=== PATIENT | male | born 1955 | race Caucasian/White ===

== ENCOUNTER 2019-11-23 11:12 | Emergency (ER) | payer OTHER, SELFPAY ==
[2019-11-23 11:14] VITALS: BP 151/84; PULSE 87; RESP 16; TEMP 36.6; O2SAT 98; BMI 21.7
--- NOTE | 2019-11-23 11:32 | XR_ITS ---
WS: [id number] Left knee, 3 views, 11/23/2019 Clinical Data: fall Comparison: Left leg, 07/31/2016. Findings: The left knee arthroplasty is seen. The components are in good position. There are no fractures or di slocations. There is minimal calcification in the wall of the popliteal artery. XR/XR knee LT 3V* [id number] Impression: No change in left knee arthroplasty.
--- NOTE | 2019-11-23 11:33 | XR_ITS ---
WS: [id number] Left hip, AP and frog-leg Clinical Data: pain Comparison: None. Findings: No fractures or dislocations are seen. The hip joint is intact. The soft tissues are not remarkable. The adjacent pelvis is normal. There is osteoarthritic change of the acetabular lip. XR/XR hip LT 2-3V wo/w pel* [id number] Impression: 1. Osteoarthritis of lateral left acetabulum. 2. Negative for fracture, dislocation or erosion.
--- NOTE | 2019-11-23 11:33 | W.ED.FALL ---
HPI - Fall General: Chief Complaint: Fall Stated Complaint: FALL LEFT LEG PAIN Time Seen by Provider: 11/23/19 11:28 History of Present Illness: HPI Narrative: Patient complains about left hip pain left knee pain after a fall while at work today. Patient states he was climbing down a 6 foot ladder that was leaned up against the wall and the bottom slipped out and he fell on his backside and now has pain to the left hip and left knee is able to ambulate but it does hurt he said complaint: fall Onset (ago): minute(s) Fall from: other (Down the ladder) Fall witnessed: no Place fall occurred: work Loss of consciousness: None Prolonged down time: no Symptoms prior to fall: none Context: tripped/slipped Location of injury - extremities: Left: knee (And left hip) Severity: moderate Severity scale (1-10): 5 Quality: aching Associated symptoms-after fall: Denies abdominal pain, chest pain or headache(s) Review of Systems Const: Denies: fever, chills or body aches Eyes: Denies: change in vision or blurry vision ENMT: Denies: throat pain or nasal congestion Card: Denies: chest pain or shortness of breath on exertion Resp: Denies: shortness of breath, productive cough or non-productive cough GI: Denies: abdominal pain, nausea or vomiting : Denies: difficulty urinating Musc: Reports: extremity pain (Left knee and left hip); Denies: extremity swelling Skin/Breast: Denies: rash Neuro: Denies: headache Psych: Denies: anxiety or depression Ramirez/Lymph: Denies: easy bruising PFSH ED PFSH: Social History Smoking and tobacco status: former smoker Physical Exam Const: COMMON NORMALS: no apparent distress, average body habitus and oriented x3 HENMT: COMMON NORMALS: normocephalic HEAD & SCALP: normal to inspection and normocephalic FACE & SINUS: normal facial exam Eye: COMMON NORMALS: conjunctivae normal GENERAL EYE: normal appearance of both eyes CONJUNCTIVA: Yes conjunctivae normal Neck/C-Spine: COMMON NORMALS: no JVD Chest: COMMONS NORMALS: inspection of chest normal Resp: COMMON NORMALS: normal respiratory effort and clear to auscultation bilaterally AUSCULTATION: clear to auscultation bilaterally Cardio: COMMON NORMALS: no JVD, regular rate and regular rhythm RATE: regular rate RHYTHM: regular rhythm GI: COMMON NORMALS: normal to inspection, nondistended, normoactive bowel sounds Extremity: COMMON NORMALS: normal to inspection and full ROM LEFT LOWER EXTREMITY: Yes hip joint (Tender to the left hip area) and Yes knee joint (No pain with palpation but there is pain with range of motion no swelling or abrasion noted) Neuro: COMMON NORMALS: oriented x3 Course Vital Signs: Vital signs: Vital Signs Temperature 98 F 11/23/19 11:14 Pulse Rate 87 11/23/19 11:14 Respiratory Rate 16 11/23/19 11:14 Blood Pressure 151/84 11/23/19 11:14 Pulse Oximetry 98 11/23/19 11:14 Coding Level of Care Code ED Aerospace Quality Engineer for Kolton Ulloa
[2019-11-23 12:55] VITALS: BP 118/62; PULSE 72; RESP 16; O2SAT 98
== END 2019-11-23 12:57 | disposition home or self-care (01) ==
LOC: ER 12:29
PROVIDERS: Emergency Provider Nurse Practitioner Family; Family Provider Family Medicine; PCP Family Medicine
DX: M25.552 Pain in left hip (principal); M25.562 Pain in left knee; Z87.891 Personal history of nicotine dependence
CPT/HCPCS: 12345; 73502; 73562; 99281; 99283

== ENCOUNTER 2019-11-24 14:53 | Emergency (ER) | payer OTHER, SELFPAY ==
[2019-11-24 14:54] VITALS: BP 137/81; PULSE 94; RESP 16; TEMP 36.9; O2SAT 98; BMI 22.4
--- NOTE | 2019-11-24 15:03 | XR_ITS ---
WS: [id number] Right wrist, 3 views, 11/24/2019 Clinical Data: fall/pain Comparison: None. Findings: No fractures or dislocations are seen. The carpal bones are intact. There is no soft tissue swelling. The distal radius and ulna are not remarkable. There is a small soft tissue calcification on the lateral view adjacent to the triquetrum which is pr obably from a chronic injury. XR/XR wrist RT min 3V* [id number] Impression: Negative right wrist.
--- NOTE | 2019-11-24 15:22 | W.ED.EXTPRO ---
HPI - Extremity Problem General: Chief complaint: Extremity Injury, Upper Stated complaint: right wrist pain Time Seen by Provider: 11/24/19 15:11 History of Present Illness: HPI Narrative: Patient complains about right wrist pain from a fall down a ladder yesterday. I had assessed him yesterday he had no wrist pain at that time. Patient said his pain developed overnight. Says it hurts to move it now denies swelling. MD Complaint: joint paint Onset (ago): day(s) Pain Consistency: constant Location: right Severity scale (1-10): 5 Quality: aching Radiation: none Relieving factors: immobilization Exacerbating factors: range of motion Associated symptoms: Reports no associated symptoms; Deny chest pain, fever(s) or rash Context: other (Recent fall) Review of Systems Const: Denies: fever, chills or body aches Eyes: Denies: change in vision or blurry vision ENMT: Denies: throat pain or nasal congestion Card: Denies: chest pain or shortness of breath on exertion Resp: Denies: shortness of breath, productive cough or non-productive cough GI: Denies: abdominal pain, nausea or vomiting : Denies: difficulty urinating Musc: Reports: joint pain (Right wrist) and other (Left leg still sore does have slight bruising patient says is able to ambulate just fine); Denies: extremity pain Skin/Breast: Denies: rash Neuro: Denies: headache Psych: Denies: anxiety or depression Ramirez/Lymph: Denies: easy bruising PFSH ED PFSH: Social History Smoking and tobacco status: former smoker Physical Exam Const: COMMON NORMALS: no apparent distress GENERAL APPEARANCE: cooperative Extremity: RIGHT UPPER EXTREMITY: Yes wrist (Tender with range of motion no swelling noted no bruising. Has good neurovascular status distal) Course Vital Signs: Vital signs: Vital Signs Temperature 98.4 F 11/24/19 14:54 Pulse Rate 94 11/24/19 14:54 Respiratory Rate 16 11/24/19 14:54 Blood Pressure 137/81 11/24/19 14:54 Pulse Oximetry 98 11/24/19 14:54 Coding Level of Care Code ED Technical Writing Lead/Mgr for Kolton Ulloa
[2019-11-24 15:37] VITALS: BP 125/83; PULSE 95; RESP 17; O2SAT 96
== END 2019-11-24 15:37 | disposition home or self-care (01) ==
LOC: ER 15:38
PROVIDERS: Emergency Provider Nurse Practitioner Family; Family Provider Family Medicine; PCP Family Medicine
DX: M25.531 Pain in right wrist (principal); M79.605 Pain in left leg; Z87.891 Personal history of nicotine dependence
CPT/HCPCS: 12345; 73110; 99281; 99282

== ENCOUNTER → 2020-01-12 09:54 | Outpatient (BNVA) | payer OTHER, SELFPAY | PROVIDERS: Family Provider Family Medicine; PCP Family Medicine; Referring Provider Nurse Practitioner; Visit Provider Orthopaedic Surgery | DX: M25.562 Pain in left knee (principal) | CPT/HCPCS: 73560; 73565 ==

== ENCOUNTER 2020-04-19 16:22 | Emergency (ER) | payer SELFPAY ==
--- NOTE | 2020-04-19 16:25 | XRR_ITS ---
PROCEDURE INFORMATION: Exam: XR Right Hand Exam date and time: 04/19/2020 5:01 PM Age: 64 years old Clinical indication: Pain and injury or trauma; Injury history: Using driving post to break rocks; Initial encounter; Blunt trauma (contusions or hematomas; Injury details: Unable to straighten or bend finger, right hand pain; Prior surgery; Additional info: Pain/trauma TECHNIQUE: Imaging protocol: XR Right hand. Views: 3 or more views. COMPARISON: CR XR wrist RT min 3V* [id number] 11/24/2019 3:12 PM FINDINGS: Bones/joints: Degenerative arthritis of the wrist with radiocarpal joint space narrowing and sclerosis. Degenerative arthritis of multiple IP joints and metacarpophalangeal joints. Prominent hypertrophic formation is most noted at the distal 3rd metacarpal bone. No acute fracture. Soft tissues: Similar small well corticated soft tissue calcification adjacent to the triquetrum. 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
[2020-04-19 16:43] VITALS: BP 124/79; PULSE 113; RESP 16; TEMP 36.9; O2SAT 97; BMI 23.0
--- NOTE | 2020-04-19 17:35 | W.ED.EXTPRO ---
HPI - Extremity Problem General: Chief complaint: Extremity Injury, Upper Stated complaint: RIGHT HAND PAIN/INJURY WC Time Seen by Provider: 04/19/20 17:35 Source: patient Mode of arrival: ambulatory Limitations: no limitations History of Present Illness: HPI Narrative: Patient presents with injury to the right hand. Patient was driving posts and struck his hand in an awkward manner causing pain to the third MCP joint. Patient has difficulty extending and flexing hand due to pain. Patient denies any other concerns or injury. MD Complaint: extremity pain Review of Systems General: Reports: 10 or more systems reviewed and unremarkable except in HPI and below Musc: Reports: extremity pain [facility] ED PFSH: Medical History (Updated 04/19/20 @ 17:40 by ALEJANDRO Hayward) Flexion contracture of left knee Surgical History Total knee replacement status Social History Smoking and tobacco status: former smoker Alcohol intake: never Physical Exam Const: COMMON NORMALS: no acute distress and patient oriented x3 GENERAL APPEARANCE: cooperative HENMT: COMMON NORMALS: normocephalic and Normal external nose present HEAD & SCALP: normal to inspection and normocephalic NOSE: Normal external nose present MOUTH: Normal oral and palatal mucosa present Eye: GENERAL EYE: appearance normal, both eyes and all related structures Neck/C-Spine: COMMON NORMALS: full ROM Chest: COMMONS NORMALS: normal inspection of the chest Resp: COMMON NORMALS: normal respiratory effort EFFORT & INSPECTION: Yes able to speak in complete sentences Cardio: COMMON NORMALS: regular rate and regular rhythm RATE: regular rate RHYTHM: regular rhythm GI: COMMON NORMALS: non-tender Back/Pelvis: COMMON NORMALS: thoracic and lumbar spine normal to inspection Extremity: NARRATIVE EXTREMITY EXAM: Tenderness is noted to the third MCP joint of the right hand. No obvious deformity. Normal passive range of motion is noted. Distal cap refill is intact. Neuro sensation is intact. Neuro: COMMON NORMALS: patient oriented x3 and moves all extremities Psych: COMMON NORMALS: mental status grossly normal and cooperative Skin: COMMON NORMALS: no rashes or lesions noted GENERAL SKIN EXAM: no rashes or lesions noted Course Vital Signs: Vital signs: Vital Signs Temperature 98.5 F 04/19/20 16:43 Pulse Rate 113 H 04/19/20 16:43 Respiratory Rate 16 04/19/20 16:43 Blood Pressure 124/79 04/19/20 16:43 Pulse Oximetry 97 04/19/20 16:43 MDM - Extremity (Nontraumatic) MDM Narrative: Medical decision making narrative: Patient comes in for concern of injury to the right hand. On exam patient has tenderness to the third MCP joint of the right hand. No obvious deformity is noted. Tenderness is noted to palpation. Differential diagnosis includes but not limited to fracture, sprain, contusion. X-ray noted significant arthritis to the hand but no sign of an acute fracture. Reviewed exam with patient recommended treatment for sprain and for aggravation of arthritis. Patient reports understanding. Discharge Plan Discharge Patient Disposition: Home Clinical Impression: Hand sprain Qualifiers: Encounter type: initial encounter Laterality: right Qualified Code(s): S63.91XA - Sprain of unspecified part of right wrist and hand, initial encounter Osteoarthritis of hand, right Qualifiers: Osteoarthritis type: unspecified Qualified Code(s): M19.041 - Primary osteoarthritis, right hand Condition: Stable Prescriptions: New diclofenac sodium 75 mg tablet,delayed release (DR/EC) 75 mg PO BID Qty: 14 RF: 0 No Action methocarbamol 750 mg tablet 750 mg PO Q8H RF: 0 tramadol 50 mg tablet 50 mg PO Q6H PRNRF: 0 trazodone 100 mg tablet 100 mg PO DAILY RF: 0 Discharge Orders: Discharge Order (Routine); Ordered 04/19/20 Ordered By: Daniel Spring Referrals: Daniel Elder [Primary Care Provider] - Discharge Diet: Usual diet Discharge Activity: Increase activity as tolerated Patient Instructions: Hand Sprain (ED) Activity Restrictions/Additional Instructions: You have significant arthritis in your hand and wrist area. No sign of fracture was noted in the hand. Most likely you have a sprain in the hand and then also aggravated your arthritis. You were given a dose of steroid in the emergency department. You need to take the diclofenac twice a day for next 7 days to help with pain and inflammation. You may continue using your routine medications as you have. Follow-up with primary care for persistent symptoms or return to the emergency department for new concerns. Coding Level of Care Code ED Pet Walker for Kolton Fwjeremy Exam Comprehensive
[2020-04-19] MEDS: dexamethasone 10 mg/mL INJ IM (17:48)
== END 2020-04-19 17:53 | disposition home or self-care (01) ==
PROVIDERS: Emergency Provider Nurse Practitioner Family; PCP Family Medicine
DX: S63.91XA Sprain of unspecified part of right wrist and hand, initial encounter (principal); M19.041 Primary osteoarthritis, right hand; Z87.891 Personal history of nicotine dependence; W22.8XXA Striking against or struck by other objects, initial encounter
CPT/HCPCS: 12345; 73130; 96372; 99281; 99283; J1100

== ENCOUNTER 2020-05-08 12:35 | Outpatient (CLI) | payer OTHER, SELFPAY ==
--- NOTE | 2020-05-08 12:47 | MR_ITS ---
WS: [id number] MRI HEAD WITH CONTRAST WITH ATTENTION TO THE INTERNAL AUDITORY CANALS TECHNIQUE: Sagittal T1, T2 axial, T2 axial flair, axial susceptibility weighted imaging, axial diffus ion weighted images, and coronal T2 images were obtained. Pre and post T1 axial and post T1 coronal i mages. ADC and FSPGR images. Post gadolinium images with attention to the internal auditory canals. A xial fiesta imaging. CLINICAL INFORMATION: DIZZINESS AND GIDDINESS COMPARISON: MRI and May 08, 2016 FINDINGS: No evidence of restricted diffusion to suggest acute ischemia. Ventricular system and basal cisterns are patent. Minimal small vessel changes. Moderate parenchymal volume loss. Normal posterior fossa. N ormal vascular flow voids at the skull base. No extra-axial fluid collections. No evidence of mass or mass effect. Paranasal sinuses are well aerated. Mastoid air cells are well aerated. No hemosiderin on the susceptibility weighted images. Normal optic chiasm and pituitary infundibulum. Temporal lobes and hippocampal formations are normal in appearance. No abnormal intracranial enhance ment. No evidence of enhancing IAC or CP angle mass. Proximal 7th and 8th cranial nerves appear amilcar l. Normal dural venous sinuses. MR/MR iac's wo/w con* [id number] IMPRESSION: 1. No evidence of enhancing IAC or CP angle mass. 2. No restricted diffusion to suggest acute ischemia. 3. Paranasal sinuses and mastoid air cells well aerated. Mild mucosal thickeni ng left maxillary sinus. 4. Minimal small vessel changes moderate parenchymal volume loss. 5. Normal optic chiasm and pituitary infundibulum.
== END 2020-05-08 12:36 | disposition home or self-care (01) ==
LOC: RADSHAW 12:36
PROVIDERS: PCP Family Medicine; Visit Provider Specialist
DX: R42 Dizziness and giddiness (principal)
CPT/HCPCS: 70553; A9579

== ENCOUNTER → 2020-05-25 08:34 | Outpatient (BNVA) | payer OTHER, SELFPAY | PROVIDERS: PCP Family Medicine; Referring Provider Family Medicine; Visit Provider Specialist | DX: M79.643 Pain in unspecified hand (principal); M19.041 Primary osteoarthritis, right hand; M19.031 Primary osteoarthritis, right wrist | CPT/HCPCS: 73130 ==

== ENCOUNTER → 2020-08-31 08:50 | Outpatient (BNVA) | payer OTHER, SELFPAY | PROVIDERS: PCP Family Medicine; Visit Provider Specialist | DX: M25.512 Pain in left shoulder (principal) | CPT/HCPCS: 73030 ==

== ENCOUNTER 2020-09-18 06:45 | Outpatient (CLI) | payer OTHER, SELFPAY ==
--- NOTE | 2020-09-18 07:15 | MR_ITS ---
WS: [id number] MRI LEFT SHOULDER HISTORY: Tendinitis left rotator cuff, prior surgery LEFT shoulder. COMPARISON: 03/22/2019 TECHNIQUE: Multiplanar sequences of the shoulder joint are submitted. There are 4 anchors now noted within the humeral head from rotator cuff repair. Increased signal in t he distal infraspinatus and supraspinatus tendons consistent with tendinopathy. There is significant enlargement and increased T2 signal within the tendons. There is a more focal linear fluid like signa l extending obliquely through the posterior supraspinatus tendon. This fluid extends between the inte rdigitation's of the supraspinatus and infraspinatus tendons. Increased fluid in the subacromial and subdeltoid bursa. There is no muscle edema or atrophy. No retraction of the tendons. Biceps tendon re paula unchanged in its position. Subscapularis tendon is negative. Again noted is the posterior inferior labral tear. Mild degenerative changes over the humeral head an d the form of loss of cartilage in surface irregularity. Resection of the distal clavicle. Micrometallic fragments from the prior surgery noted in the soft ti ssues. MR/MR shoulder LT wo con* [id number] IMPRESSION: 1. Since the prior MRI four anchors have now been placed within the humeral he ad from rotator cuff repair. 2. Significant enlargement and edema involving the distal 2 to 3 cm of the inf raspinatus and supraspinatus tendons. 3. Fluidlike signal extending obliquely through the distal supraspinatus tendo n near the overlapping interdigitation with the infraspinatus tendon. Suspiciou s for a new rotator cuff tear. 4. No muscle edema or retraction. 5. Unchanged posterior inferior labral tear. 6. Resection distal clavicle.
== END 2020-09-18 06:46 | disposition home or self-care (01) ==
LOC: RADSHAW 06:48
PROVIDERS: PCP Family Medicine; Visit Provider Specialist
DX: M75.82 Other shoulder lesions, left shoulder (principal); R60.0 Localized edema
CPT/HCPCS: 73221

== ENCOUNTER → 2021-01-24 08:06 | Outpatient (BNVA) | payer OTHER, SELFPAY | PROVIDERS: PCP Family Medicine; Visit Provider Specialist | DX: G43.711 Chronic migraine without aura, intractable, with status migrainosus (principal); H81.09 Meniere's disease, unspecified ear; I73.9 Peripheral vascular disease, unspecified; Z87.891 Personal history of nicotine dependence | CPT/HCPCS: 99204 ==

== ENCOUNTER → 2021-03-05 08:00 | Outpatient (BNVA) | payer OTHER, SELFPAY | PROVIDERS: PCP Family Medicine; Visit Provider Specialist | DX: H81.09 Meniere's disease, unspecified ear (principal); G43.809 Other migraine, not intractable, without status migrainosus; I73.9 Peripheral vascular disease, unspecified | CPT/HCPCS: 99213 ==

== ENCOUNTER → 2021-05-07 09:39 | Outpatient (BNVA) | payer OTHER, SELFPAY | PROVIDERS: PCP Family Medicine; Referring Provider Family Medicine; Visit Provider Specialist | DX: M25.561 Pain in right knee (principal); M25.562 Pain in left knee | CPT/HCPCS: 73560; 73565 ==

== ENCOUNTER 2021-06-27 08:49 | Outpatient (CLI) | payer OTHER, SELFPAY ==
--- NOTE | 2021-06-27 08:55 | NM_ITS ---
WS: [id number] THREE-PHASE BONE SCAN HISTORY: Z96.652 - Presence of left artificial knee joint, LEFT knee pain. COMPARISON: 05/07/2021 Patient is is injected with 25.6 mCi Tc99m HDP intravenously. Immediate angiographic phase imaging is performed over the area of concern. Static blood pool imaging also performed. Two-hour whole-body sc intigrams performed in anterior and posterior projections. Additional large field of view imaging sub mitted as necessary. Angiographic phase and blood pool phases are normal centered over the knees. Photopenic defect LEFT k nee from the prior arthroplasty. There is some very mild increased uptake at both knees bilaterally. Increased uptake around the LEFT knee is associated with the periphery of the knee prosthesis. More f ocal increased uptake involving the patellofemoral articulation of the RIGHT knee. Mild bilateral AC joint, AC joint and glenohumeral joint arthritis. Normal soft tissue uptake and uriel al uptake. NM/NM bone 3 phase [id number] IMPRESSION: 1. Mild changes of osteoarthritis at the LEFT knee surrounding the prosthesis. No evidence for infection or significant loosening. 2. Mild RIGHT knee osteoarthritis, greatest involving the patellofemoral joint .
== END 2021-06-27 08:50 | disposition home or self-care (01) ==
PROVIDERS: PCP Family Medicine; Visit Provider Specialist
DX: M24.562 Contracture, left knee (principal); Z96.652 Presence of left artificial knee joint; M17.0 Bilateral primary osteoarthritis of knee
CPT/HCPCS: 78315; A9561

== ENCOUNTER → 2022-05-16 07:53 | Outpatient (BNVA) | payer OTHER, SELFPAY | PROVIDERS: PCP Family Medicine; Visit Provider Urology | DX: R97.20 Elevated prostate specific antigen [PSA] (principal) | CPT/HCPCS: 84153 ==

== ENCOUNTER 2022-05-23 09:14 | Outpatient (CLI) | payer OTHER, SELFPAY ==
--- NOTE | 2022-05-23 09:34 | MR_ITS ---
WS: [id number] MRI LUMBAR SPINE NONCONTRAST HISTORY: LUMBAR RADICULOPATHY COMPARISON: 08/24/2019 TECHNIQUE: Sagittal and axial multisequence imaging is submitted. Cervical and thoracic spondylitic changes. Central canal stenosis at C4-5 and C5-6 similar to the princess or study. Disc spaces are narrowed throughout the thoracic spine. Increase in the lumbar lordosis. Disc spaces are diffusely narrowed. 2 mm retrolisthesis of L1, L2 an d L3. Narrowing signal is mildly heterogeneous but there is no fracture. Disc spaces and vertebral body heights are well-preserved. Conus terminates normally at L1-2 disc level. L1-L2: Mild diffuse annular disc bulging and ligamentum flavum hypertrophy. Small amount of fluid in the facet joints. Mild subarticular recess narrowing. L2-L3: Mild diffuse annular disc bulging with ligamentum flavum and facet arthritis. No definite disc protrusions. L3-L4: Moderate annular disc bulging. Moderate ligamentum flavum and facet arthritis. There is encroa chment narrowing of the subarticular recesses. Mild central, subarticular recess and foraminal stenos is. Previously described RIGHT foraminal disc protrusion is not as prominent. L4-L5: Mild diffuse annular disc bulge with ligamentum flavum and facet arthritis. Encroachment and n arrowing of the thecal sac disc is asymmetrically bulging to the RIGHT foramen. Mild central, bilater al subarticular recess and RIGHT foraminal stenosis. Similar pass to the prior study. L5-S1: Moderate diffuse annular disc bulging with a central disc protrusion. Ligamentum flavum and fa cet arthritis encroaching into the central canal. Impingement again noted upon the bilateral S1 nerve roots in the subarticular recesses, RIGHT slightly greater than LEFT. Similar to the prior study. Mi ld central and foraminal stenosis. Paravertebral soft tissues are normal. MR/MR lumbar spine wo con* [id number] IMPRESSION: 1. Only minimal progression of degenerative disc disease, facet arthritis and ligamentum flavum hypertrophy since 08/24/2019. 2. Central disc protrusion at L5-S1 impinges upon the S1 nerve roots bilateral ly. There is mild central, bilateral subarticular recess and foraminal stenosis . 3. Mild central, bilateral subarticular recess and RIGHT foraminal stenosis at L4-5. 4. Mild central, subarticular recess and foraminal stenosis at L3-4. 5. Mild subarticular recess narrowing at L1-2.
== END 2022-05-23 09:15 | disposition home or self-care (01) ==
LOC: RAD 09:15
PROVIDERS: PCP Family Medicine; Visit Provider Family Medicine
DX: M54.16 Radiculopathy, lumbar region (principal); M48.061 Spinal stenosis, lumbar region without neurogenic claudication; M51.27 Other intervertebral disc displacement, lumbosacral region
CPT/HCPCS: 72148

== ENCOUNTER → 2022-05-24 08:29 | Outpatient (BNVA) | payer OTHER, SELFPAY | PROVIDERS: PCP Family Medicine; Visit Provider Urology | DX: R97.20 Elevated prostate specific antigen [PSA] (principal); Z80.42 Family history of malignant neoplasm of prostate | CPT/HCPCS: 99203 ==

== ENCOUNTER 2022-05-30 12:55 | Outpatient (CLI) | payer OTHER, SELFPAY ==
--- NOTE | 2022-05-30 13:04 | USCV_ITS ---
Brian Rothman Age: 66 Gender: M : 1955 Exam Date: 05/30/2022 13:17 Ordering Phys: La Farris MD Technologist: ANALI [place] [facility] [place]: DIZZ[place] Risk Factors: Previous Vascular Surgery: Right Brachial BP: / Left Brachial BP: / Right Left Velocity (cm/s) Spectral Plaque Velocity (cm/s) Spectral Plaque Syst/Diast Broadening Syst/Diast Broadening 93.00/ 15.40 Prox CCA 110.20/ 31.60 95.90/ 19.80 Mid CCA 118.00/ 39.70 98.10/ 25.40 Distal CCA 93.70 / 32.00 53.60/ 12.40 Prox ICA 62.10 / 21.80 74.60/ 25.60 Mid ICA 83.10 / 26.40 75.50/ 26.60 Distal ICA 73.00 / 28.00 88.20 ECA 76.10 0.77 ICA/CCA 0.70 Antegrade Vertebral Antegrade 34.20/ 8.50 cm/s 48.20/ 13.90 cm/s Tri Subclavian Tri 153.8 148.6 0 0 CONCLUSIONS Right ICA stenosis <50%. Left ICA stenosis <50%. Normal antegrade Doppler flow noted in the right vertebral artery. Normal antegrade Doppler flow noted in the left vertebral artery. Adonis Sanabria MD (Electronically Signed) Final Date: 31 May 2022 17:18 S
== END 2022-05-30 12:56 | disposition home or self-care (01) ==
LOC: RAD 12:55
PROVIDERS: PCP Family Medicine; Visit Provider Family Medicine
DX: R42 Dizziness and giddiness (principal); I65.23 Occlusion and stenosis of bilateral carotid arteries
CPT/HCPCS: 93880

== ENCOUNTER → 2022-11-12 08:37 | Outpatient (BNVA) | payer OTHER, SELFPAY | PROVIDERS: PCP Family Medicine; Visit Provider Urology | DX: R97.20 Elevated prostate specific antigen [PSA] (principal) | CPT/HCPCS: 84153 ==

== ENCOUNTER → 2022-11-19 13:42 | Outpatient (BNVA) | payer OTHER, SELFPAY | PROVIDERS: PCP Emergency Medicine Emergency Medical Services; Visit Provider Urology | DX: Z80.42 Family history of malignant neoplasm of prostate (principal); Z86.010 Personal history of colon polyps; R97.20 Elevated prostate specific antigen [PSA] | CPT/HCPCS: 51798; 81003; 99213 ==

== ENCOUNTER 2023-04-17 07:21 | Outpatient (CLI) | payer OTHER, SELFPAY ==
--- NOTE | 2023-04-17 07:39 | MR_ITS ---
WS: [id number] MRI LUMBAR SPINE NONCONTRAST TECHNIQUE: Sagittal T1, T2 and STIR imaging. Axial T1 and T2 imaging. CLINICAL INFORMATION: LUMBAR RADICULOPATHY/SPONDYLOSIS/BULGING LUMBAR DISC COMPARISON: MRI 06/06 FINDINGS: Mild lumbar curve. No acute compression. Alignment is unchanged compared to previous. 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 L1-L2: Mild disc bulging with slight effacement of ventral thecal sac. Narrowing of the subarticular recess bilaterally. Mild facet arthropathy. Foramen are patent. L2-L3: Slight retrolisthesis L2 on L3. Narrowing of the subarticular recess bilaterally. Mild facet a rthropathy. Mild LEFT foraminal narrowing. RIGHT foramen is patent. L3-L4: Mild annular bulging with slight effacement of ventral thecal sac. Mild facet arthropathy. Mil d bilateral foraminal narrowing. L4-L5: Mild annular bulging with slight effacement of ventral thecal sac. Impingement traversing L5 n erve roots bilaterally. Moderate facet arthropathy. Mild RIGHT and no significant LEFT foraminal narr owing. L5-S1: Mild disc bulging with shallow central protrusion. Mild central canal stenosis. Impingement tr aversing S1 nerve roots bilaterally. Moderate facet arthropathy. Foramen are patent. Visualized pelvic bony structures: Normal. Paravertebral soft tissues: Normal. MR/MR lumbar spine wo con* [id number] IMPRESSION: Overall no significant changes since 06/06 1. Mild lumbar curve. No acute compression. No high-grade central canal stenos is. 2. Mild central canal stenosis L3-L4 L4-L5 and L5-S1 stable compared to previo us. 3. Disc bulging L5-S1 with impingement traversing LEFT greater than RIGHT S1 n erve roots. 4. Impingement on the subarticular recess L4-L5 with impingement on traversing L5 nerve roots. 5. Small LEFT foraminal protrusion L2-L3 with mild LEFT foraminal narrowing. 6. Mild RIGHT L3-L4 and RIGHT L4-L5 foraminal narrowing. 7. Moderate facet arthropathy L3-L5.
== END 2023-04-17 07:22 | disposition home or self-care (01) ==
PROVIDERS: PCP Emergency Medicine Emergency Medical Services; Visit Provider Surgery
DX: M54.16 Radiculopathy, lumbar region (principal); M47.896 Other spondylosis, lumbar region; M51.36 Other intervertebral disc degeneration, lumbar region; M48.061 Spinal stenosis, lumbar region without neurogenic claudication; M51.26 Other intervertebral disc displacement, lumbar region
CPT/HCPCS: 72148

== ENCOUNTER → 2023-06-17 07:37 | Outpatient (BNVA) | payer OTHER, SELFPAY | PROVIDERS: PCP Emergency Medicine Emergency Medical Services; Referring Provider Emergency Medicine Emergency Medical Services; Visit Provider Surgery | DX: D64.9 Anemia, unspecified (principal) | CPT/HCPCS: 99203; 99214 ==

== ENCOUNTER 2023-07-11 08:29 | Day surgery (SDC) | payer OTHER, SELFPAY ==
[2023-07-11 08:48] VITALS: BMI 19.5
[2023-07-11 08:55] VITALS: BP 104/82; PULSE 107; RESP 18; TEMP 36.1; O2SAT 98
[2023-07-11] MEDS: sodium chloride 0.9% 1,000 ML 30 ML IV (09:01)
--- NOTE | 2023-07-11 09:37 | P.HPUD_ITS ---
Surgery/Procedure H&P Update DATE OF PROCEDURE: July 11, 2023 DATE H&P PERFORMED: 06/17/23 H&P UPDATE INFORMATION: I have reviewed H&P completed within last 30 days, I have examined patient prior to procedure, No changes to prior documentation and H&P is in [facility] [place] on date indicated PLANNED PROCEDURE: Operation Date: 07/11/23 10:05 Proposed Procedures p [id number] colon G0121 screen colon A risk G64.9(Not Applicable) - Armani Antonio MD s EGD [id number](Not Applicable) - Armani Antonio MD
--- NOTE | 2023-07-11 09:37 | W.PM.OPSUD ---
Surgery/Procedure H&P Update DATE OF PROCEDURE: July 11, 2023 DATE H&P PERFORMED: 06/17/23 H&P UPDATE INFORMATION: I have reviewed H&P completed within last 30 days, I have examined patient prior to procedure, No changes to prior documentation and H&P is in [facility] [place] on date indicated PLANNED PROCEDURE: Operation Date: 07/11/23 10:05 Proposed Procedures p [id number] colon G0121 screen colon A risk G64.9(Not Applicable) - Armani Antonio MD s EGD 13821(Not Applicable) - Armani Antonio MD
--- NOTE | 2023-07-11 10:35 | ANES.PREANE2 ---
Pre-Anesthetic Assessment Height/Weight: Height 1.83 m Weight 65.317 kg Temp Pulse Resp BP Pulse Ox O2 Del Method 97 F L 107 H 18 104/82 98 Room Air 07/11/23 08:55 07/11/23 08:55 07/11/23 08:55 07/11/23 08:55 07/11/23 08:55 07/11/23 08:55 Preop Diagnosis: Iron deficiency anemia Operation Date: 07/11/23 10:05 Proposed Procedures p 47239 colon G0121 screen colon A risk G64.9(Not Applicable) - Armani Antonio MD s EGD 64379(Not Applicable) - Armani Antonio MD Familial anesthetic complications: None Was Beta Pasha taken within 24 hours: N/A Was Clonidine taken within 24 hours: N/A Last intake: Intake Last Liquid Date 07/10/23 Last Liquid Time 22:00 Last Solid Date 07/09/23 Last Solid Time 18:00 Social No alcohol and No tobacco Exam alert, oriented x 3 and clear to auscultation bilaterally Airway Submandibular: within normal limits Mallampati: Class II Dentition: full (missing multiple) History/ROS No significant history except as noted Pulmonary None reported CV/HEM Anemia None reported Hepatic None reported GI None reported Metabolic None reported Musc/skel None reported Neuropsych None reported Anesthetic Plan ASA status: 2 Anesthesia: Anesthesia Evaluation and MAC Risk of > 500 ml blood loss (7ml/kg in children): No Medications/Allergies Home Medications Medication Instructions Recorded Confirmed Last Taken Type pantoprazole 40 mg tablet,delayed 40 mg PO DAILY #42 tabs 08/25/20 07/09/23 07/10/23 Rx release (Protonix) naproxen 500 mg tablet 500 mg PO BID 09/27/20 07/09/23 07/09/23 History diazepam 2 mg tablet 2 mg PO TID PRN Anxiety 05/24/22 07/09/23 07/09/23 History trazodone 100 mg tablet 150 mg PO BEDTIME 05/24/22 07/09/23 07/09/23 History ferrous sulfate 325 mg (65 mg 65 mg PO DAILY 07/09/23 07/09/23 07/09/23 History iron) capsule,extended release acetaminophen 650 mg 650 mg PO Q12H PRN pain 07/11/23 07/11/23 07/10/23 History tablet,extended release (Tylenol 8 Hour) Allergies Allergy/AdvReac Type Severity Reaction Status Date / Time No Known Allergies Allergy Verified 06/17/23 08:40 Current Medications Generic Name Dose Route Start Last Admin Trade Name Jeremiah PRN Reason Stop Dose Admin Sodium Chloride 1,000 mls @ 30 mls/hr 07/11/23 08:45 07/11/23 09:01 Sodium Chloride 0.9% IV 30 mls/hr .Q24H SUNDAY Administration PFSH Anesthesia Medical History Elevated prostate specific antigen (PSA) Mildly elevated PSA. Complicated by family history of prostate cancer in father. Normal KATHERIN at first evaluation. PSA ranging from 5-4.6. Recommended initially a conservative approach. Flexion contracture of left knee Surgical History History of colonoscopy with polypectomy History of knee replacement History of shoulder surgery History of tonsillectomy Family History Father , AT AGE 85 Heart attack Mother Arthritis Heart disease Denies family history of Anesthesia complication Bleeding disorder Social History Smoking and tobacco/nicotine status: former use of tobacco/nicotine Alcohol intake: never Substance/Drug Use: never Marital status: Current occupational status: retired Data Anesthesia Cardiac Studies: No Data to Display
[2023-07-11 11:59] VITALS: BP 91/52; PULSE 91; RESP 14; TEMP 37.7; O2SAT 95
--- NOTE | 2023-07-11 12:04 | FL_ITS ---
WS: [id number] Exam: FL barium enema [id number] Date/Time of Exam: 07/11/2023 1:12 PM Reason For Exam: incomplete colonoscopy Preliminary abdominal survey was unremarkable. Full column barium enema was performed. The colon filled to the cecum. A large apple core filling def ect is noted in the LEFT transverse colon that is suspicious for colon carcinoma. There is approximat gloria 80% luminal narrowing at the site of the mass. The remaining aspects of the colon are unremarkabl e. The haustral pattern is well-maintained. The colon is not displaced. Barium could not be refluxed into the terminal ileum. IMPRESSION: 1. Prominent apple core filling defect in the LEFT transverse colon almost surely representing colon carcinoma. 2. The remainder of the colon is unremarkable. These findings were discussed by phone with the attending surgeon Dr. Napier at 2:37 p.m. 3.
[2023-07-11 12:09] VITALS: BP 91/58; PULSE 84; RESP 18; O2SAT 100
[2023-07-11 12:19] VITALS: BP 107/52; PULSE 80; RESP 18; O2SAT 100
[2023-07-11 12:35] VITALS: BP 96/59; PULSE 78; RESP 18; O2SAT 99
--- NOTE | 2023-07-11 12:55 | PC.NURSE ---
Pt taken to radiology via wheelchair for barium enema. Pt able to go home following procedure. Discharge instructions given to patient . No questions voiced.
== END 2023-07-11 14:00 | disposition home or self-care (01) ==
PROVIDERS: PCP Emergency Medicine Emergency Medical Services; Visit Provider Surgery
PROC: 0DJD8ZZ Inspection of Lower Intestinal Tract, Via Natural or Artificial Opening Endoscopic (ICD-10-PCS; CPT 45378; principal; 2023-07-11 10:05)
PROC: 0DJ08ZZ Inspection of Upper Intestinal Tract, Via Natural or Artificial Opening Endoscopic (ICD-10-PCS; CPT 43235; 2023-07-11 10:05)
DX: Z12.11 Encounter for screening for malignant neoplasm of colon (principal); K29.70 Gastritis, unspecified, without bleeding; D64.9 Anemia, unspecified; Z87.891 Personal history of nicotine dependence
CPT/HCPCS: 43239; 74270; 88305; J2704; J7030

== ENCOUNTER 2023-07-14 12:39 | Outpatient (CLI) | payer OTHER, SELFPAY ==
--- NOTE | 2023-07-14 13:00 | CT_ITS ---
WS: [id number] CT CHEST, ABDOMEN AND PELVIS WITH CONTRAST HISTORY: colon mass TECHNIQUE: Contiguous 5 mm axial imaging performed through the chest, abdomen and pelvis with IV cont rast, oral contrast has been provided. Coronal and sagittal reformats chest. Coronal and sagittal ref ormats through the abdomen and pelvis. All CT scans at [facility] use at least one of these d ose optimization techniques: automated exposure control; mA and/or kV adjustment per patient size (in cludes targeted exams where dose is matched to clinical indication); or iterative reconstruction. CONTRAST: Omnipaque 350; 100 mL IV. DLP: 576.50 mGy.cm COMPARISON: Barium enema 07/11/[address]: Mild pulmonary hyperexpansion. Subpleural calcified granuloma RIGHT upper lobe. No pulmonar y mass or nodule. No metastatic lesions are identified within the lungs. Normal size aorta and pulmon celso artery. Heart size is normal. No pericardial or pleural effusions. No mediastinal or hilar adenop athy. Mild increase in the thoracic kyphosis. No osteolytic or osteoblastic lesions are identified. No rib lesions are identified by CT. Abdomen CT: Numerous low-attenuation masses scattered throughout the liver consistent with metastatic disease. The largest mass measures approximately 6.5 x 5.4 cm. There are additional similar sized ma sses scattered throughout both RIGHT and LEFT lobes. No bile duct dilatation. Main portal vein is nor santa enhancing. Gallbladder is normal. Normal spleen and adrenal glands. No renal obstruction or mas s. Mild atherosclerosis aorta. Negative pancreas. Large soft tissue mass in the transverse colon with significant narrowing of the lumen. This mass was recently described on barium enema. Colonic mass extends over a length of at least 8 cm. Asymmetric wall thickening measures up to 1.6 cm. At this time there is no obstruction of the colon but the lume n is becoming significantly narrowed. There are small pericolonic lymph nodes. There is also fat stra nding suggesting tumor extension beyond the colon. Stomach is minimally distended. No small bowel obstruction. There is an area of soft tissue thickenin g involving the small bowel in the LEFT upper abdomen. This may be direct extension from the colon ne oplasm into the small bowel. There are also changes suspicious for omental carcinomatosis. No additio nal colon lesions. No ascites. Small shotty retroperitoneal lymph nodes. The largest is 1.2 cm at the level of the renal vein. Pelvic CT: No free fluid in the pelvis. No enlarged inguinal lymph nodes. Nondistended urinary bladde r. IMPRESSION: 1. Distal transverse colon neoplasm extending over a length of 8 cm. There is significant narrowing o f the lumen a large circumferential large soft tissue mass. Colonic neoplasm may be invading into an adjacent small bowel loop. There are small adjacent lymph nodes and probable tumor extension/peritone al carcinomatosis in the LEFT upper quadrant. 2. Numerous liver metastases. 3. No suspicious metastatic lesions are identified within the lungs or adrenal glands. 4. Small shotty retroperitoneal lymph nodes.
[2023-07-14] MEDS: iohexol 350 mg/mL 500 mL Btl (per mL) PO (13:20)
[2023-07-14 14:06] LABS: Blood Urea Nitrogen 19 mg/dL (8-23)
[2023-07-14] MEDS: iohexol 350 mg/mL 500 mL Btl (per mL) IV (14:19)
== END 2023-07-14 12:40 | disposition home or self-care (01) ==
LOC: RAD 12:39
PROVIDERS: PCP Emergency Medicine Emergency Medical Services; Visit Provider Surgery
DX: C18.4 Malignant neoplasm of transverse colon (principal); C78.7 Secondary malignant neoplasm of liver and intrahepatic bile duct
CPT/HCPCS: 71260; 74177; 82565; 84520; Q9967

== ENCOUNTER → 2023-07-15 11:19 | Outpatient (BNVA) | payer OTHER, SELFPAY | PROVIDERS: PCP Emergency Medicine Emergency Medical Services; Visit Provider Surgery | DX: Z09 Encounter for follow-up examination after completed treatment for conditions other than malignant neoplasm (principal); C19 Malignant neoplasm of rectosigmoid junction | CPT/HCPCS: 99215 ==

== ENCOUNTER → 2023-07-28 13:10 | Outpatient (BNVA) | payer OTHER, SELFPAY | PROVIDERS: PCP Emergency Medicine Emergency Medical Services; Visit Provider Surgery | DX: C19 Malignant neoplasm of rectosigmoid junction (principal) | CPT/HCPCS: 99214 ==

== ENCOUNTER 2023-08-01 10:26 | Day surgery (SDC) | payer OTHER, SELFPAY ==
[2023-08-01] VITALS (7 sets, daily range): BP systolic 97–112; BP diastolic 57–76; PULSE 91–101; RESP 14–18; TEMP 36.1–36.5; O2SAT 95–99; BMI 18.5
--- NOTE | 2023-08-01 06:42 | W.PM.OPSFHP ---
Same Day Surgery H&P Indication for Procedure/HPI DATE OF PROCEDURE: August 01, 2023 CHIEF COMPLAINT/INDICATIONFOR SURGICAL PROCEDURE: need for port a cath PREOP DIAGNOSIS: metastatic colon cancer PLANNED PROCEDURE: Operation Date: 08/01/23 12:00 Proposed Procedures p [id number] port placement C19(Not Applicable) - Armani Antonio MD Medications/Allergies* Home Medications Medication Instructions Recorded Confirmed Type naproxen 500 mg tablet 500 mg PO BID 09/27/20 07/31/23 History diazepam 2 mg tablet 2 mg PO TID PRN Anxiety 05/24/22 07/31/23 History trazodone 100 mg tablet 150 mg PO BEDTIME 05/24/22 07/31/23 History ferrous sulfate 325 mg (65 mg 65 mg PO DAILY 07/09/23 07/28/23 History iron) capsule,extended release acetaminophen 650 mg 650 mg PO Q12H PRN pain 07/11/23 07/31/23 History tablet,extended release (Tylenol 8 Hour) Allergies/Adverse Reactions Allergy/AdvReac Type Severity Reaction Status Date / Time No Known Allergies Allergy Verified 07/28/23 13:11 Pertinent History/Comorbid Conditions* Medical History (Updated 07/15/23 @ 12:27 by Armani Antonio MD) Elevated prostate specific antigen (PSA) Mildly elevated PSA. Complicated by family history of prostate cancer in father. Normal KATHERIN at first evaluation. PSA ranging from 5-4.6. Recommended initially a conservative approach. Flexion contracture of left knee Surgical History (Updated 05/08/21 @ 11:43 by Sri Borden MD) History of colonoscopy with polypectomy History of knee replacement History of shoulder surgery History of tonsillectomy Family History (Updated 05/24/22 @ 08:49 by Sammi Mancera LPN) Father, AT AGE 85 Arthritis Mother Heart disease Mother Heart attack Father Denies family history of Anesthesia complication Bleeding disorder Social History Smoking and tobacco/nicotine status: former use of tobacco/nicotine Alcohol intake: never Substance/Drug Use: never Marital status: Current occupational status: retired Pertinent Exam Findings alert, oriented x 3, clear to auscultation bilaterally and regular rate & rhythm Recommendations Surgery/Procedure today Coding Level of Care Code Acute Code for Chg Fwd Diagnoses
[2023-08-01] MEDS: sodium chloride 0.9% 1,000 ML 30 ML IV (11:22)
[2023-08-01] MEDS: fentaNYL 50 mcg/mL INJ 2mL IVP (11:22)
[2023-08-01] MEDS: ondansetron 2 mg/ML SDV 2 mL 4 MG IVP ×2 (11:22→13:58)
--- NOTE | 2023-08-01 12:34 | ANES.PREANE2 ---
Pre-Anesthetic Assessment Height/Weight: Height 1.83 m Weight 62 kg O2 Del Method Room Air 08/01/23 10:50 Preop Diagnosis: metastasic colon cancer Operation Date: 08/01/23 12:00 Proposed Procedures p [id number] port placement C19(Not Applicable) - Armani Antonio MD Familial anesthetic complications: None Was Beta Pasha taken within 24 hours: N/A Was Clonidine taken within 24 hours: N/A Last intake: Intake Last Liquid Date 07/31/23 Last Liquid Time 18:00 Last Solid Date 07/31/23 Last Solid Time 18:00 Social No alcohol and No tobacco Exam alert, oriented x 3, clear to auscultation bilaterally and regular rate & rhythm Airway Mallampati: Class II Dentition: other (missing) GI Gastroesophageal Reflux Disease stage IV colon cancer Anesthetic Plan ASA status: 4 Anesthesia: MAC Risk of > 500 ml blood loss (7ml/kg in children): No Medications/Allergies Home Medications Medication Instructions Recorded Confirmed Last Taken Type pantoprazole 40 mg tablet,delayed 40 mg PO DAILY #42 tabs 08/25/20 07/31/23 07/31/23 Rx release (Protonix) naproxen 500 mg tablet 500 mg PO BID 09/27/20 07/31/23 07/30/23 History diazepam 2 mg tablet 2 mg PO TID PRN Anxiety 05/24/22 07/31/23 07/31/23 History trazodone 100 mg tablet 150 mg PO BEDTIME 05/24/22 07/31/23 07/30/23 History ferrous sulfate 325 mg (65 mg 65 mg PO DAILY 07/09/23 07/28/23 07/09/23 History iron) capsule,extended release acetaminophen 650 mg 650 mg PO Q12H PRN pain 07/11/23 07/31/23 07/30/23 History tablet,extended release (Tylenol 8 Hour) sucralfate 100 mg/mL oral 1 g (10 mL) PO BID 8 weeks #1,120 07/11/23 07/31/23 08/01/23 Rx suspension mL hydrocodone 7.5 mg-acetaminophen 1 tab PO Q6H PRN pain 30 days #120 07/28/23 07/31/23 07/31/23 Rx 325 mg tablet tabs Allergies Allergy/AdvReac Type Severity Reaction Status Date / Time No Known Allergies Allergy Verified 11/13/23 13:11 Current Medications Generic Name Dose Route Start Last Admin Trade Name Freq PRN Reason Stop Dose Admin Fentanyl 50 mcg 08/01/23 10:36 08/01/23 11:22 Fentanyl 50 Mcg/Ml Inj 2ml IVP 50 mcg Q10M PRN Administration Preop Pain Sodium Chloride 1,000 mls @ 30 mls/hr 08/01/23 10:45 08/01/23 11:22 Sodium Chloride 0.9% IV 08/02/23 10:44 30 mls/hr .Q24H SUNDAY Administration Ondansetron HCl 4 mg 08/01/23 10:36 08/01/23 11:22 Ondansetron 2 Mg/Ml Sdv 2 Ml IVP 4 mg Q5M PRN Administration NAUSEA AND VOMITING PFSH Anesthesia Medical History Elevated prostate specific antigen (PSA) Mildly elevated PSA. Complicated by family history of prostate cancer in father. Normal KATHERIN at first evaluation. PSA ranging from 5-4.6. Recommended initially a conservative approach. Flexion contracture of left knee Surgical History History of colonoscopy with polypectomy History of knee replacement History of shoulder surgery History of tonsillectomy Family History Father , AT AGE 85 Heart attack Mother Arthritis Heart disease Denies family history of Anesthesia complication Bleeding disorder Social History Smoking and tobacco/nicotine status: former use of tobacco/nicotine Alcohol intake: never Substance/Drug Use: never Marital status: Current occupational status: retired Data Anesthesia Cardiac Studies: No Data to Display
[2023-08-01] MEDS: ceFAZolin 2,000 MG in sodium chloride 0.9% (plus) 50 ML 100 MG IV (12:41)
[2023-08-01] MEDS: lidocaine-epi 2% 20 mL INJ INJECTION (13:04)
[2023-08-01] MEDS: heparin, porcine 1,000 unit/mL INJ 10 mL 6000 UNIT XX (13:18)
[2023-08-01] MEDS: lidocaine-epi 2% 20 mL INJ (13:19)
--- NOTE | 2023-08-01 13:25 | XR_ITS ---
WS: [id number] Exam: XR chest 1V portable [id number] Date/Time of Exam: 08/01/2023 1:38 PM Reason For Exam: Post port placement Comparison 03/22/2016. The lungs are clear and fully expanded. Normal cardiomediastinal structures and bony elements. A righ t-sided port ends at the cavoatrial junction. IMPRESSION: 1. Right-sided port ending at the cavoatrial junction. No acute cardiopulmonary process.
--- NOTE | 2023-08-01 13:36 | PM.OP ---
Operative Report Date of procedure: August 01, 2023 Pre-op diagnosis: Metastatic colon cancer Post-op diagnosis: Same Procedure done: Insertion of Port-A-Cath Implants: Bard Port-A-Cath Surgeon: Armani Antonio MD Slot Shift Manager: RUBIA OR Staff Estimated blood loss: 10 Complications: none Findings: Normal vascular anatomy, right IJ noted to be collapsing during expiration likely representing poor intravascular volume. Brief History: 67-year-old male with history of metastatic colon cancer who requires a port for chemotherapy initiation. After discussion of the risk and benefits as documented in my preop note we have decided to proceed with placement of a right IJ Port-A-Cath. Procedure: Patient was brought into the OR. He was placed in the supine position. Moderate anesthesia sedation was given. The neck and upper chest was prepped and draped in the usual sterile fashion. Timeout was conducted. Ultrasound was used to localize the right IJ vein at the level of the neck. Despite Trendelenburg position it was noted to be collapsing, likely representing poor intravascular volume. under US guidance the right IJ vein was canulated, 2 attempts were required due to vascular anatomy. the needle was seen entering the lumen and a wire was advanced. the wire position was confirmed with US and fluoroscopy. I then proceeded to make a 2.5cm incision on the right upper chest, the incision was deepened to the level of the pectoralis fascia. a subcutaneous pocket was created to accomodate the port. I then used a hemostat to create a tunnel from the chest wound to the level of the neck. I made a 5mm incision a the level of the wire insertion site in the neck to accommodate the tunneler and sheath. the port was placed in the chest pocket and the catheter tunneled from the chest wound to the neck wound using tunneler. I then measured the catheter length using fluoroscopy and transected the catheter. A peel off sheath was then advanced over the wire under fluoroscopy guidance. the introducer and wire were removed and the catheter was advanced through the sheath. the peel off sheath was then removed leaving the catheter in place. the posiition was verified with fluoroscopy, I then verified blood retun and hep locked the port. the port was fixed to the pectoralis fascia with #3-0 Vicryl. hemostasis was verified. the wound was closed in layers using #3-0 vicryl for the subcutaneous tissue and #4-0 Monocryl for the skin. the skin of the neck was closed with #4-0 monocryl. dermabond was then applied over the wounds. at the end of the procedure all counts were correct. the patient tolerated well the procedure and was transfered to the PACU in stable condition. Chest XR done in the PACU shows no evidence of pneumothorax.
--- NOTE | 2023-08-01 13:43 | SC_ITS ---
WS: [id number] C-ARM RADIOGRAPHS CHEST; 2 IMAGES HISTORY: OR PICS COMPARISON: 08/01/2023 Intraoperative imaging during RIGHT subclavian Port-A-Cath placement. Tip appears appropriately posit ioned. IMPRESSION: Intraoperative imaging during Mediport placement.
[2023-08-01] MEDS: fentaNYL 50 mcg/mL INJ 2mL 100 MCG IVP (13:50)
[2023-08-01] MEDS: HYDROcodone-acetaminophen 5-325 mg Tablet 2 TAB PO (14:43)
--- NOTE | 2023-08-01 15:40 | ANE.PACU2 ---
Inpatient post-anesthesia follow up: Airway intact: Yes Vital signs: Temperature 97.7 F Pulse Rate 100 Respiratory Rate 16 Blood Pressure 108/68 Pulse Oximetry 95 Oxygen Delivery Me thod Room Air Oxygen Flow Rate 6 Fraction of Inspir ed Oxygen Hydration adequate: Yes Nausea and vomiting: No Pain level: 1 Mental status: Baseline
== END 2023-08-01 15:40 | disposition home or self-care (01) ==
PROVIDERS: Family Provider Internal Medicine Medical Oncology; PCP Emergency Medicine Emergency Medical Services; Visit Provider Surgery
PROC: (CPT 36561; principal; 2023-08-01 12:00)
DX: C18.9 Malignant neoplasm of colon, unspecified (principal); C79.9 Secondary malignant neoplasm of unspecified site; Z87.891 Personal history of nicotine dependence
CPT/HCPCS: 36561; 71045; 76000; 77001; C1788; J0690; J1644; J2405; J2704; J3010; J3490; J7030

== ENCOUNTER 2023-08-05 15:37 | Inpatient (IN) | payer OTHER, SELFPAY ==
--- OUTSIDE RECORDS SUMMARY | 2023-08-05 15:40 | XMS_ITS | Patient Health Record ---
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 Name Role Phone KaleighLa Deshpande MD Primary Care Provider Unav ailable Ángel Horton Unavailable [phone] REASON FOR REFERRAL Reason Continuation of PT f or back pain BIW-TIW x 4-6 weeks Diagnosis 1 Lumbar radiculopathy (M54.16) Diagnosis 2 Lumbar spondylosis ( M47.816) Diagnosis 3 Bulging lumbar disc (M51.36) Referral Organization [facility] [place] Referring Provider First Name Ángel Referring Provider Last Name Clifford Referring Provider Speciality Neurosurge ry Referred Provider Specialty 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 rapist Referral Priority Routine Reason Comprehensive lumbar epidural steroid injections suggesting L5-S1 Diagnosis 1 Lumbar radiculopathy (M54.16) Diagnosis 2 Lumbar spondylosis ( M47.816) Diagnosis 3 Bulging lumbar disc (M51.36) Referral Organization [facility] Referring Provider First Name Ángel Referring Provider Last Name Clifford Referring Provider Speciality Neurosurge ry Referred Provider Jameel New Referred Provider Specialty Pain Medicin e Referral Priority Routine Reason low back pain Diagnosis 1 Low back pain (M54.5 0) Referring Provider First Name La Referring Provider Last Name Adrián Referring Provider Speciality Family Med icine Referred Organization [facility] Referred Provider Ángel Horton Referred Address [address],[place],[address], Referred Provider Specialty Neurosurgery Referral Priority Routine [...] Notes Problem Lumbar spondylosis (M47.816) Active confirmed [id number] Problem Bulging lumbar disc (M51.36) Active confirmed [id number] VITAL SIGNS Heart Rate 84 /min 05/20/2023 Temperature 98.0 degrees Fahrenheit 05/20/2023 Respiratory Rate 20 /min 05/20/2023 Height-cm 172.72 cm 05/20/2023 Oximetry 95 % 05/20/2023 Blood pressure diastolic 68 mm Hg 05/20/2023 Weight-kg 72.57 kg 05/20/2023 Height 68 in 05/20/2023 Blood pressure systolic 118 mm Hg 05/20/2023 Weight 160 lbs 05/20/2023 BMI 24.33 kg/m2 05/20/2023 Encounters Encounter Location Date Provider Diagnosis [facility] [address] [place] [address] 03/27/2023 Ángel Horton Lumbar radiculopathy M54.16 ; Lumbar spondylosis M47.816 and Bulging lumbar disc M51.36 [facility] [place] [address] [place] [address] 04/15/2023 Ángel Horton [facility] [place] [address] [place] [address] 04/22/2023 Ángel Horton [facility] [place] [address] [place] [address] 05/20/2023 Ángel Horton Lumbar spondylosis M47.816 and Lumbar stenosis M48.061 [facility] [address] [place] [address] 09/17/2022 Ángelwendie Orozcoley Lumbar radiculopathy M54.16 ; Lumbar spondylosis M47.816 and Bulging lumbar disc M51.36 [facility] [place] [address] [place] [place] [address] 02/18/2023 Ángelwendie Orozcoley [facility] [place] [address] [place] [address] 03/25/2023 Ángel Clifford Lumbar spondylosis M47.816 and Bulging lumbar disc [...] a referral to the pain clinic in [place] for a lumbar epidural steroid injection suggesting L5-S1. The patient is in agreement. I will see him back in 6 months or sooner if needed. ROS reviewed I Rachel Dawn LPN am scribing for, and in the presence of Ángel Horton MD. I, Ángel Horton, personally performed the services described in this documentation, as scribed by Rachel Dwan LPN in my presence, and it is [...] Name Order Date MRI Lumbar Spine w/o [id number] 03/25/20 MRI Lumbar Spine w/o [id number] 03/27/20 Insurance Providers Payer Name Payer Address Payer Phone Subscriber Number Group Number Insured Name Patient Relationship to Insured Coverage Start Date Coverage End Date [employer] [address] [place] [phone] [id number] Brian Rothman Self - patient is the insured MEDICAL (GENERAL) HISTORY Medical History History ICD Code Measles Mumps Arthritis GERD Surgical History Surgery Date(Month/Year) Left Knee Replacement 10/25/2013 Left Shoulder and Collar Bone 10/30/19 Screws Low Left Femur 03/11/83
--- OUTSIDE RECORDS SUMMARY | 2023-08-05 15:40 | XMS_ITS | Continuity of Care Document ---
Author Name Unknown Organization [facility] Address [address] [place] [address]- Care Team Providers Care Publishing Director Name Role Phone Jameel Lopez DO Primary Care Physician [phone] Encounter [facility] Financial Number [id number] Date(s): 07/29/23 - 07/29/23 [facility] [address] [place] [address]- [phone] Discharge Disposition: .Discharge to Home (Routine) Attending Physician: Cabrera Elliott MD Allergies, Adverse Reactions, Alerts No Known Allergies Assessment and Plan Extracted from: Title:Instructions to Patients Author:Reva Ortiz RN Date:07/29/23 [facility] Liver Biopsy, Care After The following information offers guidance on how to care for yourself after your procedure. Your health care provider may also give you more specific instructions. If you have problems or questions, contact your health care provider. What can I expect after the procedure? After your procedure, it is common to: ? ? Have pain and soreness in the area where the biopsy was done. ? ? Have bruising around the area where the biopsy was done. ? ? Feel tired for 1? 2 days. Follow these instructions at home: Medicines ? ? Take cbiw-hqu-mbslowj and prescription medicines only as told by your health care provider. ? ? If you were prescribed an antibiotic medicine, take it as told by your health care provider. Do not stop taking the antibiotic, even if you start to feel better. ? ? Do not take medicines, such as aspirin and ibuprofen, unless your doctor tells you to take them. ? ? Ask your health care provider if the medicine prescribed to you: ? ? Requires you to avoid driving or using machinery. ? ? Can cause constipation. You may need to take these actions to prevent or treat constipation: ? ? Drink enough fluid to keep your urine pale yellow. ? ? Take nflo-hpi-hfxpqkz or prescription medicines. ? ? Eat foods that are high in fiber, such as beans, whole grains, and fresh fruits and vegetables. ? ? Limit foods that are high in fat and processed sugars, such as fried or sweet foods. Incision care ? ? Follow instructions from your health care provider about how to take care of your incisions. Make sure you: ? ? Wash your hands with soap and water for at least 20 seconds before and after you change your bandage (dressing). If soap and water are not available, use hand warehouse attendant. ? ? Change your dressing as told by your health care provider. ? ? Leave stitches (sutures), skin glue, or adhesive strips in place. These skin closures may need to stay in place for 2 weeks or longer. If adhesive strip edges start to loosen and curl up, you may trim the loose edges. Do not remove adhesive strips completely unless your health care provider tells you to do that. ? ? Check your incision areas every day for signs of infection. Check for: ? ? Redness, swelling, or more pain. ? ? Fluid or blood. ? ? Warmth. ? ? Pus or a bad smell. ? ? Do not take baths, swim, or use a hot tub until your health care provider says it is okay to do so. Activity ? ? Rest at home for 1? 2 days, or as directed by your health care provider. ? ? Avoid sitting for a long time without moving. Get up to take short walks every 1? 2 hours. This is important to improve blood flow and breathing. Ask for help if you feel weak or unsteady. ? ? Do not lift anything that is heavier than 10 lb (4.5 kg), or the limit that your health care provider tells you, until he or she says that it is safe. ? ? Do not play contact sports for 2 weeks after the procedure. ? ? Return to your normal activities as told by your health care provider. Ask your health care provider what activities are safe for you. General instructions ? ? Do not drink alcohol in the first week after the procedure. ? ? Plan to have a responsible adult care for you for the time you are told after you leave the hospital or clinic. This is important. ? ? It is up to you to get the results of your procedure. Ask your health care provider, or the department that is doing the procedure, when your results will be ready. ? ? Keep all follow-up visits. This is important. Contact a health care provider if: ? ? You have increased bleeding from an incision. ? ? You have redness, swelling, or increasing pain in any incisions. ? ? You notice a discharge or a bad smell coming from any of your incisions. ? ? You develop a rash. ? ? You have a fever or chills. Get help right away if: ? ? You develop swelling, bloating, or pain in your abdomen. ? ? You become dizzy or faint. ? ? You have nausea or vomiting. ? ? You have shortness of breath or difficulty breathing. ? ? You develop chest pain. ? ? You have problems with your speech or vision. ? ? You have trouble with your balance or moving your arms or legs. These symptoms may represent a serious problem that is an emergency. Do not wait to see if the symptoms will go away. Get medical help right away. Call your local emergency services (911 in the [place] Do not drive yourself to the hospital. Summary ? ? After the liver biopsy, it is common to have pain, soreness, and bruising in the area, as well as tiredness (fatigue). ? ? Take drhj-hxc-dwbcoth and prescription medicines only as told by your health care provider. ? ? Follow instructions from your health care provider about how to care for your incisions. ? ? Check your incision areas daily for signs of infection. This information is not intended to replace advice given to you by your health care provider. Make sure you discuss any questions you have with your health care provider. Document Revised: 07/16/2021 Document Reviewed: 07/16/2021 [employer] Patient Education ?? 2021 [employer] Moderate Conscious Sedation, Adult, Care After This sheet gives you information about how to care for yourself after your procedure. Your health care provider may also give you more specific instructions. If you have problems or questions, contact your health care provider. What can I expect after the procedure? After the procedure, it is common to have: ? ? Sleepiness for several hours. ? ? Impaired judgment for several hours. ? ? Difficulty with balance. ? ? Vomiting if you eat too soon. Follow these instructions at home: For the time period you were told by your health care provider: ? ? Rest. ? ? Do not participate in activities where you could fall or become injured. ? ? Do not drive or use machinery. ? ? Do not drink alcohol. ? ? Do not take sleeping pills or medicines that cause drowsiness. ? ? Do not make important decisions or sign legal documents. ? ? Do not take care of children on your own. Eating and drinking ? ? Follow the diet recommended by your health care provider. ? ? Drink enough fluid to keep your urine pale yellow. ? ? If you vomit: ? ? Drink water, juice, or soup when you can drink without vomiting. ? ? Make sure you have little or no nausea before eating solid foods. General instructions ? ? Take wolm-rxb-jpwqhdz and prescription medicines only as told by your health care provider. ? ? Have a responsible adult stay with you for the time you are told. It is important to have someone help care for you until you are awake and alert. ? ? Do not smoke. ? ? Keep all follow-up visits as told by your health care provider. This is important. Contact a health care provider if: ? ? You are still sleepy or having trouble with balance after 24 hours. ? ? You feel light-headed. ? ? You keep feeling nauseous or you keep vomiting. ? ? You develop a rash. ? ? You have a fever. ? ? You have redness or swelling around the IV site. Get help right away if: ? ? You have trouble breathing. ? ? You have new-onset confusion at home. Summary ? ? After the procedure, it is common to feel sleepy, have impaired judgment, or feel nauseous if you eat too soon. ? ? Rest after you get home. Know the things you should not do after the procedure. ? ? Follow the diet recommended by your health care provider and drink enough fluid to keep your urine pale yellow. ? ? Get help right away if you have trouble breathing or new-onset confusion at home. This information is not intended to replace advice given to you by your health care provider. Make sure you discuss any questions you have with your health care provider. Document Revised: 12/29/2020 Document Reviewed: 07/27/2020 [employer] Patient Education ?? 2021 [employer]. Medication Leaflets: Accessing??[employer]??Express??Patient??Portal Access medications, test results, radiology reports, and more through [employer] secure patient portal. Please be patient if waiting on lab results, as these can take several days to process. [place] online at??[email or web address]??Use your community medical record number (CMRN) located below to verify your identity on the Self-Enrollment form.We also offer the ability for you to securely connect other health management apps to your health record. See the [facility] Connection link on the website above for more details. Watch [employer] Patient Education Videos and Access Resources anytime online! Visit [email or web address]. Medications diazePAM 2 mg oral tablet 2 mg, = 1 tab, By mouth, Q8H, 0, Substitution Permitted Start Date: 07/21/23 Status: Ordered ferrous sulfate 324 mg (65 mg elemental iron) oral delayed release tablet 324 mg = 1 tab, By mouth, Daily, Refill(s) 0 Start Date: 07/21/23 Status: Ordered pantoprazole 40 mg oral delayed release tablet 40 mg = 1 tab, By mouth, Daily, Refill(s) 0 Start Date: 07/21/23 Status: Ordered sucralfate 1 g/10 mL oral suspension 1 g = 10 mL, By mouth, ACHS (before meals and at bedtime), Refill(s) 0 Start Date: 07/21/23 Status: Ordered traZODone 100 mg oral tablet 100 mg = 1 tab, By mouth, Refill(s) 0 Start Date: 07/21/23 Status: Ordered Problem List Condition Confirmation Course Effective Dates Status H ealth Status Informant Ex-smoker Confirmed Active patient Fever Confirmed Active Iron deficiency Confirmed Resolved Iron deficiency anemia Confirmed Active Colon tumor Confirmed Active 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 [facility], [place], [address] Reference Ranges: 9.0 - 13.5 sec. [employer] [facility] have validated the use of the i-STAT PT/INR test on patients receiving anti-coagulant therapy and on non-anticoagulated patients. Testing on patients not on anti-coagulant has not been cleared or approved by the US Food and Drug Administration 2Result Comment: Performed at:[facility], [address], [place], [address] Reference Ranges: 0.80 - 1.30 Vital Signs Most recent to oldest [Reference Range]: 1 2 3 Blood Pressure 108/56 (07/29/23 3:35 PM) 114/71 (07/29/23 3:05 PM) 111/66 (07/29/23 2:50 PM) Height (inches) (Clinical) 72 in (07/29/23 10:34 AM) Weight (kg) (Clinical) 62.2 kg (07/29/23 10:34 AM) BMI (Clinical) 18.6 kg/m2 (07/29/23 10:34 AM) Social History Social History Type Response Smoking Status Former smoker; Smoke less tobacco use: Never; Has the patient smoked in the last 365 days, even once? No entered on: 07/21/23 Sex Male Hospital Discharge Instructions Patient Education 07/29/2023 13:28:47 Liver Biopsy, Care After Liver Biopsy, Care After The following information offers guidance on how to care for yourself after your procedure. Your health care provider may also give you more specific instructions. If you have problems or questions, contact your health care provider. What can I expect after the procedure? After your procedure, it is common to: ??? Have pain and soreness in the area where the biopsy was done. ??? Have bruising around the area where the biopsy was done. ??? Feel tired for 1???2 days. Follow these instructions at home: Medicines ??? Take eyzm-ecu-xylffzx and prescription medicines only as told by your health care provider. ??? If you were prescribed an antibiotic medicine, take it as told by your health care provider. Donot stop taking the antibiotic, even if you start to feel better. ??? Do not take medicines, such as aspirin and ibuprofen, unless your doctor tells you to take them. ??? Ask your health care provider if the medicine prescribed to you: ??? Requires you to avoid driving or using machinery. ??? Can cause constipation. You may need to take these actions to prevent or treat constipation: ??? Drink enough fluid to keep your urine pale yellow. ??? Take napq-ryz-lbcuwnr or prescription medicines. ??? Eat foods that are high in fiber, such as beans, whole grains, and fresh fruits and vegetables. ??? Limit foods that are high in fat and processed sugars, such as fried or sweet foods. Incision care ??? Follow instructions from your health care provider about how to take care of your incisions. Make sure you: ??? Wash your hands with soap and water for at least 20 seconds before and after you change your bandage (dressing). If soap and water are not available, use hand warehouse attendant. ??? Change your dressing as told by your health care provider. ??? Leave stitches (sutures), skin glue, or adhesive strips in place. These skin closures may need to stay in place for 2 weeks or longer. If adhesive strip edges start to loosen and curl up, you maytrim the loose edges. Do not remove adhesive strips completely unless your health care provider tells you to do that. ??? Check your incision areas every day for signs of infection. Check for: ??? Redness, swelling, or more pain. ??? Fluid or blood. ??? Warmth. ??? Pus or a bad smell. ??? Do not take baths, swim, or use a hot tub until your health care provider says it is okay to doso. Activity ??? Rest at home for 1???2 days, or as directed by your health care provider. ??? Avoid sitting for a long time without moving. Get up to take short walks every 1???2 hours. This is important to improve blood flow and breathing. Ask for help if you feel weak or unsteady. ??? Do not lift anything that is heavier than 10 lb (4.5 kg), or the limit that your health care provider tells you, until he or she says that it is safe. ??? Do not play contact sports for 2 weeks after the procedure. ??? Return to your normal activities as told by your health care provider. Ask your health care provider what activities are safe for you. General instructions ??? Do not drink alcohol in the first week after the procedure. ??? Plan to have a responsible adult care for you for the time you are told after you leave the hospital or clinic. This is important. ??? It is up to you to get the results of your procedure. Ask your health care provider, or the department that is doing the procedure, when your results will be ready. ??? Keep all follow-up visits. This is important. Contact a health care provider if: ??? You have increased bleeding from an incision. ??? You have redness, swelling, or increasing pain in any incisions. ??? You notice a discharge or a bad smell coming from any of your incisions. ??? You develop a rash. ??? You have a fever or chills. Get help right away if: ??? You develop swelling, bloating, or pain in your abdomen. ??? You become dizzy or faint. ??? You have nausea or vomiting. ??? You have shortness of breath or difficulty breathing. ??? You develop chest pain. ??? You have problems with your speech or vision. ??? You have trouble with your balance or moving your arms or legs. These symptoms may represent a serious problem that is an emergency. Do not wait to see if the symptoms will go away. Get medical help right away. Call your local emergency services (911 in the [place] Do not drive yourself to the hospital. Summary ??? After the liver biopsy, it is common to have pain, soreness, and bruising in the area, as well as tiredness (fatigue). ??? Take exgh-oiz-sfxzztn and prescription medicines only as told by your health care provider. ??? Follow instructions from your health care provider about how to care for your incisions. ??? Check your incision areas daily for signs of infection. This information is not intended to replace advice given to you by your health care provider. Make sure you discuss any questions you have with your health care provider. Document Revised: 07/16/2021 Document Reviewed: 07/16/2021 [employer] Patient Education ?? 2021 [employer] 07/29/2023 13:28:47 Moderate Conscious Sedation, Adult, Care After Moderate Conscious Sedation, Adult, Care After This sheet gives you information about how to care for yourself after your procedure. Your health care provider may also give you more specific instructions. If you have problems or questions, contact your health care provider. What can I expect after the procedure? After the procedure, it is common to have: ??? Sleepiness for several hours. ??? Impaired judgment for several hours. ??? Difficulty with balance. ??? Vomiting if you eat too soon. Follow these instructions at home: For the time period you were told by your health care provider: ??? Rest. ??? Do not participate in activities where you could fall or become injured. ??? Do not drive or use machinery. ??? Do not drink alcohol. ??? Do not take sleeping pills or medicines that cause drowsiness. ??? Do not make important decisions or sign legal documents. ??? Do not take care of children on your own. Eating and drinking ??? Follow the diet recommended by your health care provider. ??? Drink enough fluid to keep your urine pale yellow. ??? If you vomit: ??? Drink water, juice, or soup when you can drink without vomiting. ??? Make sure you have little or no nausea before eating solid foods. General instructions ??? Take fgwx-dfz-oqhwbol and prescription medicines only as told by your health care provider. ??? Have a responsible adult stay with you for the time you are told. It is important to have someone help care for you until you are awake and alert. ??? Do not smoke. ??? Keep all follow-up visits as told by your health care provider. This is important. Contact a health care provider if: ??? You are still sleepy or having trouble with balance after 24 hours. ??? You feel light-headed. ??? You keep feeling nauseous or you keep vomiting. ??? You develop a rash. ??? You have a fever. ??? You have redness or swelling around the IV site. Get help right away if: ??? You have trouble breathing. ??? You have new-onset confusion at home. Summary ??? After the procedure, it is common to feel sleepy, have impaired judgment, or feel nauseous if you eat too soon. ??? Rest after you get home. Know the things you should not do after the procedure. ??? Follow the diet recommended by your health care provider and drink enough fluid to keep your urine pale yellow. ??? Get help right away if you have trouble breathing or new-onset confusion at home. This information is not intended to replace advice given to you by your health care provider. Make sure you discuss any questions you have with your health care provider. Document Revised: 12/29/2020 Document Reviewed: 07/27/2020 [employer] Patient Education ?? 2021 [employer]. Follow Up Care 07/28/2023 10:30:37 With:Keep Scheduled Appointments Address:Unknown When: Unknown Comments:biopsy results to ordering provider within 3-5 business days Progress note * Calderon Randolph MD: PERFORM, SIGN, VERIFY Event Display: Progress Notes Authored Date: [id number] Patient: NASRA JIMENEZ Age: 67 years Sex: Male : 1955 Associated Diagnoses: None Author: Calderon Randolph MD Postoperative Information Preoperative Diagnosis: Preop Dx (ST) SN - GCD - Preop Diagnosis: liver tumor (07/29/23 14:17:40). Postoperative Diagnosis: Postop Dx (ST) same. Procedure: Procedure (ST) SN - SgP - Procedure: CT Biopsy (07/29/23) Sn - SgP - Surgeon Preferred Procedure: LIVER (07/29/23). Performed by: Primary Surgeon (ST) Surgeon - Primary: Calderon Randolph MD . Surgery Specialist: Physician's Surgery Specialist (ST) No Carbonating Stone Cleaner Found . Anesthetic Used: Anesthesia Type (ST) SN - SgP - Anesthesia Type: 0-MOD SED-Nurse Adm (07/29/23). Findings: sr. Specimens Removed: Specimens (ST) No Specimens Taken. Estimated Blood Loss: 0 ml. Complications: None. Description of Techniques: Standard. Implants/Grafts: Implant (ST) No Implants/Grafts Used. Final Count Verification: SN - FCV (ST) No final counts done. Electronically signed by:Calderon Randolph MD 07/29/23 16:57 Patient Care team information Care Team Personnel Name: Jameel Lopez DO Position: 2 Restricted Providers Member Role: Primary Care Physician Address: Address: [address] [place] [phone] [place] [address] Care Team Related Persons Name: FANNIE JIMENEZ Address: home [address] [place] [address]
[2023-08-05] MEDS: HYDROcodone-acetaminophen 7.5-325 mg Tablet 1 TAB PO (17:49)
[2023-08-05 18:00] VITALS: BMI 19.8
[2023-08-05 18:04] VITALS: BP 109/69; PULSE 79; RESP 16; O2SAT 99
[2023-08-05] MEDS: sodium chloride 0.9% 1,000 ML 50 ML IV (18:12)
--- NOTE | 2023-08-05 19:16 | PM.HP ---
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 Does not use oxygen at home. Lives with his . Patient is stating that he would opt for DNR/DNI but would like to discuss with his regarding goals of care Port-A-Cath was placed 08/01. First chemotherapy on 08/05 Review of Systems Const: Reports: chills and body aches Eyes: Denies: change in vision ENMT: Denies: throat pain Card: Denies: chest pain Resp: Denies: dyspnea GI: Denies: abdominal pain : Denies: flank pain Musc: Denies: neck pain Neuro: Denies: headache(s) Psych: Denies: anxiety Medications/Allergies Home Medications Medication Instructions Recorded Confirmed Last Taken Type pantoprazole 40 mg tablet,delayed 40 mg PO DAILY #42 tabs 08/25/20 08/05/23 07/31/23 Rx release (Protonix) diazepam 2 mg tablet 2 mg PO TID PRN Anxiety 05/24/22 08/05/23 07/31/23 History trazodone 100 mg tablet 150 mg PO BEDTIME 05/24/22 08/05/23 07/30/23 History ferrous sulfate 325 mg (65 mg 65 mg PO DAILY 07/09/23 08/05/23 07/09/23 History iron) capsule,extended release acetaminophen 650 mg 650 mg PO Q12H PRN pain 07/11/23 08/05/23 07/30/23 History tablet,extended release (Tylenol 8 Hour) sucralfate 100 mg/mL oral 1 g (10 mL) PO BID 8 weeks #1,120 07/11/23 08/05/23 08/01/23 Rx suspension mL hydrocodone 7.5 mg-acetaminophen 1 tab PO Q6H PRN pain 30 days #120 07/28/23 08/05/23 07/31/23 Rx 325 mg tablet tabs meloxicam 7.5 mg tablet 7.5 mg PO DAILY #7 tabs 08/01/23 08/05/23 Unknown Rx lorazepam 1 mg tablet 0.5 - 1 mg PO Q6H PRN Severe 08/05/23 08/05/23 Unknown Rx Nausea #30 tabs olanzapine 5 mg tablet 5 mg PO QPM Breakthrough Nausea 08/05/23 08/05/23 Unknown Rx and Vomitting #30 tabs prochlorperazine maleate 10 mg 10 mg PO Q4H PRN Mild Nausea #30 08/05/23 08/05/23 Unknown Rx tablet (Compazine) tabs Allergies Allergy/AdvReac Type Severity Reaction Status Date / Time No Known Allergies Allergy Verified 08/05/23 10:57 PFSH Acute PFSH: Medical History Chronic migraine without aura, intractable, with status migrainosus Degenerative arthritis Elevated prostate specific antigen (PSA) Mildly elevated PSA. Complicated by family history of prostate cancer in father. Normal KATHERIN at first evaluation. PSA ranging from 5-4.6. Recommended initially a conservative approach. Flexion contracture of left knee Meniere syndrome Secondary malignant neoplasm of liver and intrahepatic bile duct Metastatic high-grade neuroendocrine cancer Surgical History History of colonoscopy with polypectomy History of knee replacement History of liver biopsy History of shoulder surgery History of tonsillectomy Port-A-Cath in place Family History Father , AT AGE 85 Heart attack Mother Arthritis Heart disease Denies family history of Anesthesia complication Bleeding disorder Social History Smoking and tobacco/nicotine status: former use of tobacco/nicotine Quit status (tobacco/nicotine): has quit using Year quit tobacco: 2012 Former quit date comment: smoked 30 years Alcohol intake: never Substance/Drug Use: never Marital status: Current occupational status: retired Vitals/I&O/Wt Last Vital Signs Pulse 79 08/05/23 18:04 Resp 16 08/05/23 18:04 BP 109/69 08/05/23 18:04 Pulse Ox 99 08/05/23 18:04 O2 Del Method Room Air 08/05/23 18:04 Weight last 48 hrs Weight 66.27 kg Physical Exam Narrative: Frail male Currently on room air Eating dinner GCS 15 Pleasant and cooperative Cachectic, malnourished No obvious ascites No stridor or wheezing Currently on room air Pleasant and cooperative He does have ataxia Dry cracked lips no active sore throat A&P Assessment and plan (1) Secondary malignant neoplasm of liver and intrahepatic bile duct: (2) Chronic migraine without aura, intractable, with status migrainosus: (3) Meniere syndrome: (4) Colorectal cancer, stage IV: (5) Flexion contracture of left knee: (6) Bilateral chronic knee pain: (7) Ataxia: Plan Secondary malignant neoplasm of liver with intrahepatic bile duct involvement Metastatic high-grade neuroendocrine tumor primary tumor is in transverse colon First chemotherapy with carboplatin/etoposide on 08/05 Patient has been counseled on potential side effects, bone marrow suppression, alopecia, mouth sores, recurrent nausea vomiting patient at baseline is not physically very active which is a poor clinical indicator he wants to carry on his chemotherapy at this point He is full code Eats regular diet He is not diabetic He does have ataxia sees he has to walk slowly because of his bad knees Clinically dehydrated malnourished and cachexia We will add supplemental diet with IV fluid hydration For opioids continue morphine and hydrocodone Senna S. Could be used for as needed purposes Check ammonia level Patient has chronic anemia I would only use SCDs for now watch his blood count with chemotherapy for next 2 sessions Attestations Medical Necessity Statement*: Anticipating more than 2 midnight Diagnoses Secondary malignant neoplasm of liver and intrahepatic bile duct C78.7 Chronic migraine without aura, intractable, with status migrainosus G43.711 Meniere syndrome H81.09 Colorectal cancer, stage IV C19 Flexion contracture of left knee M24.562 Bilateral chronic knee pain M25.561; M25.562; G89.29 Ataxia R27.0
[2023-08-05 20:00] VITALS: BP 102/62; PULSE 76; RESP 17; TEMP 36.4; O2SAT 97
[2023-08-05 20:11] VITALS: RESP 16
[2023-08-05] MEDS: morphine 4 mg/mL SDV 1 mL IV (20:11)
[2023-08-05] MEDS: piperacillin-tazobactam 3.375 GM in sodium chloride 0.9% (plus) 50 ML IV (21:12)
[2023-08-05] MEDS: trazodone 150 mg Tablet PO (21:12)
[2023-08-05 21:51] LABS: Vitamin B12 1803 pg/mL (232-1245)
[2023-08-06] VITALS (11 sets, daily range): BP systolic 98–112; BP diastolic 61–69; PULSE 59–114; RESP 15–21; TEMP 36.4–36.5; O2SAT 94–98
[2023-08-06] MEDS: morphine IR 15 mg Tablet PO ×2 (03:34→17:44)
[2023-08-06] MEDS: piperacillin-tazobactam 3.375 GM in sodium chloride 0.9% (plus) 50 ML IV ×3 (04:21→21:06)
[2023-08-06 05:35] LABS: Basophils % 0.1 %; Hematocrit 26.4 % (37-53); Lymphocytes # 0.6 10^3/uL (0.8-4.8); Lymphocytes % 3.6 %; Mean Corpuscular HGB Conc 31.1 g/dL (30-55); Mean Corpuscular Hemoglobin 26.6 pg (27-33); Mean Corpuscular Volume 85.7 fl (82-101); Mean Platelet Volume 10.1 fL (7.4-10.4); Monocytes # 0.4 10^3/uL (0.2-0.9); Monocytes % 2.6 %; Neutrophils # 14.62 10^3/uL (1.8-7.7); Neutrophils % 92.9 %; Nucleated Red Blood Cells % 0 %; Platelet Count 430 10^3/cmm (157-399); Platelet Count 436 10^3/cmm (157-399); Red Blood Count 3.08 10^6/uL (3.85-5.65); Red Cell Distribution Width 17.3 % (12.1-15.1); White Blood Count 15.73 10^3/uL (3.29-11.43)
[2023-08-06 06:02] LABS: Ammonia 45 umol/L (16-60)
[2023-08-06 06:04] LABS: Alanine Aminotransferase 49 U/L (0-41); Albumin Level 2.8 g/dL (3.5-5.2); Alkaline Phosphatase 827 U/L (40-130); Anion Gap 18.9 (5-19); Aspartate Amino Transferase 103 U/L (0-40); Blood Urea Nitrogen 22 mg/dL (8-23); Calcium 8.7 mg/dL (8.5-10.5); Carbon Dioxide 21 mmol/L (22-29); Chloride 99 mmol/L (98-107); Globulin 3.3 g/dL (1.3-4.6); Glomerular Filtration Rate 96.7 mL/min (90-130); Glucose 130 mg/dL (65-115); Osmolality Calculated 283 mOsm/kg (285-295); Potassium 4.9 mmol/L (3.5-5.1); Sodium 134 mmol/L (136-145); Total Bilirubin 1.6 mg/dL (0.15-1.2); Total Protein 6.1 g/dL (6.6-8.7)
[2023-08-06 06:05] LABS: C Reactive Protein 166.8 mg/L (0.0-4.9); INR 1.15 (0.8-1.2); Magnesium 2.3 mg/dL (1.7-2.3)
[2023-08-06 06:06] LABS: Fibrinogen 544 mg/dL (174-498); Partial Thromboplastin Time 31.7 SECONDS (23.9-36.7)
[2023-08-06] MEDS: HYDROcodone-acetaminophen 7.5-325 mg Tablet 1 TAB PO ×3 (08:39→21:16)
[2023-08-06] MEDS: pantoprazole DR 40 mg Tablet PO (08:40)
[2023-08-06] MEDS: ferrous sulfate EC 325 mg Tablet PO (08:40)
[2023-08-06] MEDS: sucralfate 1 gm/10 mL Oral Liq UDC PO ×2 (08:40→17:45)
[2023-08-06] MEDS: ondansetron 2 mg/ML SDV 2 mL 8 MG IVP (12:38)
[2023-08-06] MEDS: sodium chloride 0.9% 1,000 ML 50 ML IV (12:45)
--- NOTE | 2023-08-06 15:30 | PM.PN ---
Subjective Subjective: Seen this morning. Patient says he feels weak and is requesting more IV fluids. Family at bedside. Vitals/I&O/Wt Last Vital Signs Temp 97.6 F 08/06/23 11:20 Pulse 92 08/06/23 11:20 Resp 15 08/06/23 11:20 BP 98/61 08/06/23 11:20 Pulse Ox 98 08/06/23 11:20 O2 Del Method Room Air 08/06/23 11:20 08/06/23 08/06/23 08/06/23 06:59 14:59 22:59 Intake Total 170 / 290 1390.708 / 1390.708 Output Total Balance 170 / 290 1388.708 / 1388.708 Weight last 48 hrs Weight 67.387 kg Weight 66.27 kg Physical Exam Narrative: Frail male Currently on room air Pleasant and cooperative Cachectic, malnourished No obvious ascites No stridor or wheezing Currently on room air Pleasant and cooperative He does have ataxia Dry cracked lips no active sore throat Data 08/06/23 05:24 08/06/23 05:24 A&P Assessment and plan (1) Secondary malignant neoplasm of liver and intrahepatic bile duct: (2) Chronic migraine without aura, intractable, with status migrainosus: (3) Meniere syndrome: (4) Colorectal cancer, stage IV: (5) Flexion contracture of left knee: (6) Bilateral chronic knee pain: (7) Ataxia: Plan Secondary malignant neoplasm of liver with intrahepatic bile duct involvement Metastatic high-grade neuroendocrine tumor primary tumor is in transverse colon First chemotherapy with carboplatin/etoposide on 08/05 Patient has been counseled on potential side effects, bone marrow suppression, alopecia, mouth sores, recurrent nausea vomiting patient at baseline is not physically very active which is a poor clinical indicator he wants to carry on his chemotherapy at this point He is full code Eats regular diet He is not diabetic He does have ataxia sees he has to walk slowly because of his bad knees Clinically dehydrated malnourished and cachexia. We will add supplemental diet with IV fluid hydration. Increase normal saline to 100 cc/h. For opioids continue morphine and hydrocodone Senna S. Could be used for as needed purposes Check ammonia level Patient has chronic anemia I would only use SCDs for now watch his blood count with chemotherapy for next 2 sessions Check CBC CMP in a.m. Transfuse for hemoglobin less than 7. Attestations Medical Necessity Statement*: Requires inpatient stay for chemotherapy. Diagnoses Secondary malignant neoplasm of liver and intrahepatic bile duct C78.7 Chronic migraine without aura, intractable, with status migrainosus G43.711 Meniere syndrome H81.09 Colorectal cancer, stage IV C19 Flexion contracture of left knee M24.562 Bilateral chronic knee pain M25.561; M25.562; G89.29 Ataxia R27.0
[2023-08-06] MEDS: OLANZapine 5 mg TABLET PO (17:45)
[2023-08-06] MEDS: trazodone 150 mg Tablet PO (21:06)
[2023-08-06] MEDS: sennosides-docusate Tablet 1 TAB PO (21:16)
[2023-08-07] VITALS (7 sets, daily range): BP systolic 98–113; BP diastolic 56–66; PULSE 56–90; RESP 17–22; TEMP 36.3–36.9; O2SAT 97–99
[2023-08-07] MEDS: sodium chloride 0.9% 1,000 ML 100 ML IV ×3 (00:07→21:59)
[2023-08-07] MEDS: piperacillin-tazobactam 3.375 GM in sodium chloride 0.9% (plus) 50 ML IV ×3 (04:20→21:57)
[2023-08-07] MEDS: HYDROcodone-acetaminophen 7.5-325 mg Tablet 1 TAB PO ×3 (04:29→22:14)
[2023-08-07 05:19] LABS: Basophils % 0.1 %; Hematocrit 24.5 % (37-53); Lymphocytes # 0.5 10^3/uL (0.8-4.8); Lymphocytes % 2.2 %; Mean Corpuscular Hemoglobin 26.5 pg (27-33); Mean Corpuscular Volume 85.4 fl (82-101); Mean Platelet Volume 10.6 fL (7.4-10.4); Monocytes # 0.7 10^3/uL (0.2-0.9); Neutrophils # 20.91 10^3/uL (1.8-7.7); Neutrophils % 93.7 %; Nucleated Red Blood Cells % 0 %; Platelet Count 446 10^3/cmm (157-399); Red Blood Count 2.87 10^6/uL (3.85-5.65); Red Cell Distribution Width 17.3 % (12.1-15.1); White Blood Count 22.33 10^3/uL (3.29-11.43)
[2023-08-07 05:34] LABS: Alanine Aminotransferase 52 U/L (0-41); Albumin Level 2.7 g/dL (3.5-5.2); Alkaline Phosphatase 814 U/L (40-130); Anion Gap 19.1 (5-19); Aspartate Amino Transferase 101 U/L (0-40); Blood Urea Nitrogen 28 mg/dL (8-23); Calcium 8.5 mg/dL (8.5-10.5); Carbon Dioxide 20 mmol/L (22-29); Chloride 103 mmol/L (98-107); Globulin 3.2 g/dL (1.3-4.6); Glomerular Filtration Rate 84.4 mL/min (90-130); Glucose 129 mg/dL (65-115); Osmolality Calculated 291 mOsm/kg (285-295); Potassium 5.1 mmol/L (3.5-5.1); Sodium 137 mmol/L (136-145); Total Bilirubin 1.1 mg/dL (0.15-1.2); Total Protein 5.9 g/dL (6.6-8.7)
[2023-08-07] MEDS: pantoprazole DR 40 mg Tablet PO (09:10)
[2023-08-07] MEDS: sucralfate 1 gm/10 mL Oral Liq UDC PO ×2 (09:10→17:50)
[2023-08-07] MEDS: ferrous sulfate EC 325 mg Tablet PO (09:10)
--- NOTE | 2023-08-07 09:12 | PM.PN ---
Subjective Subjective: Seen today. Is tired. Started on chemotherapy yesterday in the hospital. Labs reviewed. Hemoglobin 7.6 today WBC 22,000. Vitals/I&O/Wt Last Vital Signs Temp 98.4 F 08/07/23 09:07 Pulse 90 08/07/23 09:07 Resp 22 H 08/07/23 09:07 BP 99/65 08/07/23 09:07 Pulse Ox 99 08/07/23 09:07 O2 Del Method Room Air 08/07/23 09:07 08/06/23 08/07/23 08/07/23 22:59 06:59 14:59 Intake Total 725.833 / 2116.541 1035 / 3151.541 170 / 170 Output Total / Balance 725.833 / 2114.541 1033 / 3147.541 170 / 170 Weight last 48 hrs Weight 67.387 kg Weight 67.387 kg Weight 66.27 kg Physical Exam Narrative: Frail male Currently on room air Pleasant and cooperative Cachectic, malnourished Lungs clear to auscultation bilaterally Currently on room air Pleasant and cooperative Data 08/07/23 04:48 08/07/23 04:48 A&P Assessment and plan (1) Secondary malignant neoplasm of liver and intrahepatic bile duct: (2) Chronic migraine without aura, intractable, with status migrainosus: (3) Meniere syndrome: (4) Colorectal cancer, stage IV: (5) Flexion contracture of left knee: (6) Bilateral chronic knee pain: (7) Ataxia: Plan Secondary malignant neoplasm of liver with intrahepatic bile duct involvement Metastatic high-grade neuroendocrine tumor primary tumor is in transverse colon First chemotherapy with carboplatin/etoposide on 08/05 Patient has been counseled on potential side effects, bone marrow suppression, alopecia, mouth sores, recurrent nausea vomiting patient at baseline is not physically very active which is a poor clinical indicator he wants to carry on his chemotherapy at this point He is full code Eats regular diet He is not diabetic He does have ataxia sees he has to walk slowly because of his bad knees Clinically dehydrated malnourished and cachexia. We will add supplemental diet with IV fluid hydration. Increase normal saline to 100 cc/h. For opioids continue morphine and hydrocodone Senna S. Could be used for as needed purposes Check ammonia level Patient has chronic anemia I would only use SCDs for now watch his blood count with chemotherapy for next 2 sessions Check CBC CMP in a.m. Transfuse for hemoglobin less than 7. Today's plan 08/07 Check CBC daily Continue inpatient chemo as per oncology Pain control Nausea control Boost dietary supplement to be offered to the patient COntinue IV fluids 100 cc/hr Attestations Medical Necessity Statement*: Requires inpatient stay for chemotherapy. Diagnoses Secondary malignant neoplasm of liver and intrahepatic bile duct C78.7 Chronic migraine without aura, intractable, with status migrainosus G43.711 Meniere syndrome H81.09 Colorectal cancer, stage IV C19 Flexion contracture of left knee M24.562 Bilateral chronic knee pain M25.561; M25.562; G89.29 Ataxia R27.0
[2023-08-07] MEDS: calcium carbonate 500 mg Chew Tablet PO ×3 (09:15→22:11)
[2023-08-07] MEDS: sodium chloride 0.9% 500 ML 999 ML IV (09:56)
[2023-08-07] MEDS: palonosetron 0.25 mg/5 mL SDV IVP (14:06)
[2023-08-07] MEDS: OLANZapine 5 mg TABLET PO (17:50)
[2023-08-07] MEDS: trazodone 150 mg Tablet PO (21:59)
[2023-08-08] VITALS (9 sets, daily range): BP systolic 101–112; BP diastolic 48–76; PULSE 55–77; RESP 16–18; TEMP 36.3–37; O2SAT 96–99; BMI 20.1
[2023-08-08] MEDS: sennosides-docusate Tablet 1 TAB PO (02:52)
[2023-08-08] MEDS: piperacillin-tazobactam 3.375 GM in sodium chloride 0.9% (plus) 50 ML IV ×3 (06:24→20:53)
[2023-08-08 06:52] LABS: Basophils % 0.1 %; Hematocrit 27.1 % (37-53); Lymphocytes # 0.7 10^3/uL (0.8-4.8); Lymphocytes % 2.7 %; Mean Corpuscular HGB Conc 30.3 g/dL (30-55); Mean Corpuscular Hemoglobin 26.5 pg (27-33); Mean Corpuscular Volume 87.7 fl (82-101); Mean Platelet Volume 10.6 fL (7.4-10.4); Monocytes # 0.7 10^3/uL (0.2-0.9); Monocytes % 2.9 %; Neutrophils # 22.41 10^3/uL (1.8-7.7); Neutrophils % 93.4 %; Nucleated Red Blood Cells % 0 %; Platelet Count 504 10^3/cmm (157-399); Red Blood Count 3.09 10^6/uL (3.85-5.65); Red Cell Distribution Width 17.6 % (12.1-15.1)
[2023-08-08 07:13] LABS: Alanine Aminotransferase 76 U/L (0-41); Alkaline Phosphatase 901 U/L (40-130); Aspartate Amino Transferase 136 U/L (0-40); Blood Urea Nitrogen 32 mg/dL (8-23); Calcium 8.7 mg/dL (8.5-10.5); Carbon Dioxide 20 mmol/L (22-29); Chloride 105 mmol/L (98-107); Globulin 2.9 g/dL (1.3-4.6); Glomerular Filtration Rate 84.4 mL/min (90-130); Glucose 130 mg/dL (65-115); Magnesium 2.4 mg/dL (1.7-2.3); Osmolality Calculated 297 mOsm/kg (285-295); Sodium 139 mmol/L (136-145); Total Bilirubin 1.2 mg/dL (0.15-1.2); Total Protein 5.9 g/dL (6.6-8.7)
[2023-08-08] MEDS: calcium carbonate 500 mg Chew Tablet PO ×2 (07:55→17:28)
[2023-08-08] MEDS: HYDROcodone-acetaminophen 7.5-325 mg Tablet 1 TAB PO (07:56)
[2023-08-08] MEDS: pantoprazole DR 40 mg Tablet PO (08:10)
[2023-08-08] MEDS: sucralfate 1 gm/10 mL Oral Liq UDC PO ×2 (08:10→17:28)
[2023-08-08] MEDS: ferrous sulfate EC 325 mg Tablet PO (08:10)
[2023-08-08] MEDS: sodium chloride 0.9% 1,000 ML 100 ML IV (08:12)
[2023-08-08] MEDS: morphine IR 15 mg Tablet PO (11:45)
--- NOTE | 2023-08-08 12:55 | PC.SOCIAL ---
Pg 2 IMM Explained to pt Pg 2 IMM. No questions voiced. Provided pt a copy. Initialed, dated, & timed a copy & placed in chart.
--- NOTE | 2023-08-08 13:08 | PM.PN ---
Subjective Subjective: resting comfortably in bed states he has been seeing a boy in his room which is sometimes there and sometimes not. he says he told the boy to go away and that he is not ready to go yet. has no other hallucinations except this one persistent one. otherwise says he feels ok, denies cp, sob, abd pain is better but abd still mildly tender to palpation he says. also reports his feet are starting to feel slightly puffy to him Vitals/I&O/Wt Last Vital Signs Temp 97.5 F L 08/08/23 12:15 Pulse 70 08/08/23 12:15 Resp 18 08/08/23 12:15 BP 106/66 08/08/23 12:15 Pulse Ox 98 08/08/23 12:15 O2 Del Method Room Air 08/08/23 12:15 08/07/23 08/08/23 08/08/23 22:59 06:59 14:59 Intake Total 1530 / 3956.333 290 / 4246.333 1410 / 1410 Output Total 2 / 2 Balance 1530 / 3956.333 288 / 4244.333 1410 / 1410 Weight last 48 hrs Weight 67.387 kg Weight 67.387 kg Physical Exam Narrative: Frail male Currently on room air Pleasant and cooperative Cachectic, malnourished Lungs clear to auscultation bilaterally Currently on room air Pleasant and cooperative abd soft however midly tender on deep palpation diffusely Trace pedal edema noted Data 08/08/23 06:23 08/08/23 06:23 A&P Assessment and plan (1) Secondary malignant neoplasm of liver and intrahepatic bile duct: (2) Chronic migraine without aura, intractable, with status migrainosus: (3) Meniere syndrome: (4) Colorectal cancer, stage IV: (5) Flexion contracture of left knee: (6) Bilateral chronic knee pain: (7) Ataxia: Plan Secondary malignant neoplasm of liver with intrahepatic bile duct involvement Metastatic high-grade neuroendocrine tumor primary tumor is in transverse colon First chemotherapy with carboplatin/etoposide on 08/05 Patient has been counseled on potential side effects, bone marrow suppression, alopecia, mouth sores, recurrent nausea vomiting patient at baseline is not physically very active which is a poor clinical indicator he wants to carry on his chemotherapy at this point He is full code Eats regular diet He is not diabetic He does have ataxia sees he has to walk slowly because of his bad knees Clinically dehydrated malnourished and cachexia. We will add supplemental diet with IV fluid hydration. Increase normal saline to 100 cc/h. For opioids continue morphine and hydrocodone Senna S. Could be used for as needed purposes Check ammonia level Patient has chronic anemia I would only use SCDs for now watch his blood count with chemotherapy for next 2 sessions Check CBC CMP in a.m. Transfuse for hemoglobin less than 7. Today's plan 08/08 Check CBC daily Continue inpatient chemo as per oncology Pain control Nausea control Boost dietary supplement to be offered to the patient COntinue IV fluids 100 cc/hr talk with dr. mejia regarding management Attestations Medical Necessity Statement*: Requires inpatient stay for chemotherapy. Diagnoses Secondary malignant neoplasm of liver and intrahepatic bile duct C78.7 Chronic migraine without aura, intractable, with status migrainosus G43.711 Meniere syndrome H81.09 Colorectal cancer, stage IV C19 Flexion contracture of left knee M24.562 Bilateral chronic knee pain M25.561; M25.562; G89.29 Ataxia R27.0
[2023-08-08] MEDS: OLANZapine 5 mg TABLET PO (17:28)
--- NOTE | 2023-08-08 18:12 | CTR_ITS ---
PROCEDURE INFORMATION: Exam: CT Head Without Contrast Exam date and time: 08/09/2023 7:20 AM Age: 67 years old Clinical indication: Other: R/O brain mets TECHNIQUE: Imaging protocol: Computed tomography of the head without contrast. Radiation optimization: All CT scans at this facility use at least one of these dose optimization techniques: automated exposure control; mA and/or kV adjustment per patient size (includes targeted exams where dose is matched to clinical indication); or iterative reconstruction. REPORTING DATA: Count of CT and Cardiac NM exams in prior 12 months: This patient has received [address] and 0 known cardiac nuclear medicine studies in the 12 months prior to the current study. COMPARISON: MR head wo con* [id number] 07/30/2018 7:31 AM RADIATION DOSE METRICS: Total DLP (mGy-cm): 1006.55 FINDINGS: Brain: Normal. No hemorrhage. Unremarkable white matter. No mass effect. Cerebral ventricles: No ventriculomegaly. Paranasal sinuses: Visualized sinuses are unremarkable. No fluid levels. Mastoid air cells: Visualized mastoid air cells are well aerated. Bones/joints: Unremarkable. No acute fracture. Soft tissues: Unremarkable. CT/CT head wo con* [id number] IMPRESSION: No acute intracranial abnormality.
[2023-08-08] MEDS: sodium chloride 0.9% 1,000 ML 30 ML IV (18:30)
[2023-08-09] VITALS (8 sets, daily range): BP systolic 106–112; BP diastolic 54–67; PULSE 65–93; RESP 15–19; TEMP 36.3–36.4; O2SAT 93–99
[2023-08-09] MEDS: morphine IR 15 mg Tablet PO ×2 (00:38→07:35)
[2023-08-09] MEDS: piperacillin-tazobactam 3.375 GM in sodium chloride 0.9% (plus) 50 ML IV (05:05)
[2023-08-09] MEDS: calcium carbonate 500 mg Chew Tablet PO (07:35)
[2023-08-09 09:53] LABS: Basophils % 0.1 %; Hematocrit 26.2 % (37-53); Lymphocytes # 0.8 10^3/uL (0.8-4.8); Lymphocytes % 4.2 %; Mean Corpuscular HGB Conc 30.9 g/dL (30-55); Mean Platelet Volume 11.1 fL (7.4-10.4); Monocytes # 0.3 10^3/uL (0.2-0.9); Monocytes % 1.5 %; Neutrophils % 93.4 %; Nucleated Red Blood Cells % 0 %; Platelet Count 431 10^3/cmm (157-399); Red Blood Count 3.12 10^6/uL (3.85-5.65); Red Cell Distribution Width 17.4 % (12.1-15.1)
[2023-08-09 10:12] LABS: Anion Gap 17.3 (5-19); Blood Urea Nitrogen 31 mg/dL (8-23); Calcium 8.7 mg/dL (8.5-10.5); Carbon Dioxide 20 mmol/L (22-29); Chloride 105 mmol/L (98-107); Glomerular Filtration Rate 96.7 mL/min (90-130); Glucose 98 mg/dL (65-115); Osmolality Calculated 293 mOsm/kg (285-295); Potassium 4.3 mmol/L (3.5-5.1); Sodium 138 mmol/L (136-145)
[2023-08-09] MEDS: sucralfate 1 gm/10 mL Oral Liq UDC PO (10:43)
[2023-08-09] MEDS: pantoprazole DR 40 mg Tablet PO (10:43)
[2023-08-09] MEDS: ferrous sulfate EC 325 mg Tablet PO (10:43)
--- NOTE | 2023-08-09 12:59 | PM.DCS ---
Discharge Providers Date of Admission: 08/05/23 15:37 Date of Discharge: August 09, 2023 Attending Provider at Admission: Brendon Mendez MD Attending Provider at Discharge: Roseann Schneider MD Primary Care Provider: Jameel Lopez DO Diagnoses at Discharge Discharge Diagnosis (1) Secondary malignant neoplasm of liver and intrahepatic bile duct: Status: Acute Permanent problem details: Metastatic high-grade neuroendocrine cancer (2) Chronic migraine without aura, intractable, with status migrainosus: Status: Acute (3) Meniere syndrome: Status: Acute (4) Colorectal cancer, stage IV: Status: Acute (5) Flexion contracture of left knee: Status: Acute (6) Bilateral chronic knee pain: Status: Acute (7) Ataxia: Status: Acute Reason for Visit Reason for Visit: Colon Cancer Hospital Course Hospital Course Patient was admitted for administration of first cycle of chemotherapy with carboplatin and etoposide as an inpatient. He has been diagnosed with secondary malignant neoplasm of liver with intrahepatic bile duct involvement, metastatic high-grade neuroendocrine tumor primary tumors in transverse colon. He remained on IV fluids during hospital stay along with IV antibiotics. Once completion of 3 days of chemotherapy he is discharged home in stable condition with a follow-up with oncology on 08/12 2023. He was sent home on oral morphine along with hydrocodone. He stated discharge that this regimen worked well for him as this is what he was getting during hospital stay. Discussed with oncology prior to discharging patient. Appreciate recommendations. He will get follow-up labs done with oncology and further management to be pursued by oncology. Physical Exam Narrative: Frail male Currently on room air Pleasant and cooperative Cachectic, malnourished Lungs clear to auscultation bilaterally Currently on room air Pleasant and cooperative abd soft however midly tender on deep palpation diffusely Trace pedal edema noted Discharge Data Studies Completed and Pending Completed Studies During Hospitalization Category Date Time Status CT head wo con* [id number] Routine Cat Scan 08/08/23 18:12 Completed Radiology Impressions Head CT 08/08/23 18:12 IMPRESSION: No acute intracranial abnormality. Laboratory Results WBC 18.10 10^3/uL (3.29-11.43) H 08/09/23 09:28 RBC 3.12 10^6/uL (3.85-5.65) L 08/09/23 09:28 Hgb 8.10 g/dL (11.27-16.99) L 08/09/23 09: Hct 26.2 % (37-53) L 08/09/23 09: MCV 84.0 fl (82-101) 08/09/23 09: MCH 26.0 pg (27-33) L 08/09/23 09: MCHC 30.9 g/dL (30-55) 08/09/23 09: RDW 17.4 % (12.1-15.1) H 08/09/23 09:28 Plt Count 431 10^3/cmm (157-399) H 08/09/23 09:28 MPV 11.1 fL (7.4-10.4) H 08/09/23 09: Neut % (Auto) 93.4 % 08/09/23 09: Lymph % (Auto) 4.2 % 08/09/23 09: [place] % (Auto) 1.5 % 08/09/23 09: Eos % (Auto) 0.0 % 08/09/23 09: Baso % (Auto) 0.1 % 08/09/23 09: Neut # (Auto) 16.90 10^3/uL (1.8-7.7) H 08/09/23 09: Lymph # (Auto) 0.8 10^3/uL (0.8-4.8) 08/09/23 09: [place] # (Auto) 0.3 10^3/uL (0.2-0.9) 08/09/23 09: Eos # (Auto) 0.0 10^3/uL (0.0-0.8) 08/09/23 09: Baso # (Auto) 0.0 10^3/uL (0.0-0.1) 08/09/23 09: Nucleated RBC % (auto) 0 % 08/09/23 09: Nucleated RBCs # 0.0 /100WBC 08/09/23 09:28 PT 15.00 SECONDS (12.1-14.9) H 08/06/23 05:24 INR 1.15 (0.8-1.2) 08/06/23 05:24 APTT 31.7 SECONDS (23.9-36.7) 08/06/23 05:24 Fibrinogen 544 mg/dL (174-498) H 08/06/23 05:24 Sodium 138 mmol/L (136-145) 08/09/23 09:28 Potassium 4.3 mmol/L (3.5-5.1) 08/09/23 09:28 Chloride 105 mmol/L (98-107) 08/09/23 09:28 Carbon Dioxide 20 mmol/L (22-29) L 08/09/23 09:28 Anion Gap 17.3 (5-19) 08/09/23 09:28 BUN 31 mg/dL (8-23) H 08/09/23 09:28 Creatinine 0.8 mg/dL (0.7-1.2) 08/09/23 09:28 GFR Calculation 96.7 mL/min (90-130) 08/09/23 09:28 Glucose 98 mg/dL (65-115) 08/09/23 09:28 Calculated Osmolality 293 mOsm/kg (285-295) 08/09/23 09:28 Calcium 8.7 mg/dL (8.5-10.5) 08/09/23 09:28 Phosphorus 5.0 mg/dL (2.5-4.5) H 08/06/23 05:24 Magnesium 2.4 mg/dL (1.7-2.3) H 08/08/23 06:23 Total Bilirubin 1.2 mg/dL (0.15-1.2) 08/08/23 06:23 AST 136 U/L (0-40) H 08/08/23 06:23 ALT 76 U/L (0-41) H 08/08/23 06:23 Alkaline Phosphatase 901 U/L (40-130) H 08/08/23 06:23 Ammonia 45 umol/L (16-60) 08/06/23 05:24 C-Reactive Protein 166.8 mg/L (0.0-4.9) H 08/06/23 05:24 Total Protein 5.9 g/dL (6.6-8.7) L 08/08/23 06:23 Albumin 3.0 g/dL (3.5-5.2) L 08/08/23 06:23 Globulin 2.9 g/dL (1.3-4.6) 08/08/23 06:23 Vitamin B12 1803 pg/mL (232-1245) H 08/05/23 20:12 Vitals Last Vital Signs Temp 97.5 F L 08/09/23 11:19 Pulse 93 08/09/23 11:19 Resp 19 H 08/09/23 11:19 BP 106/59 08/09/23 11:19 Pulse Ox 93 08/09/23 11:19 O2 Del Method Room Air 08/09/23 11:19 Discharge Plan Discharge Patient Disposition: Home Condition: Stable Prescriptions: New morphine 15 mg Tablet 15 mg PO Q6H PRN (Reason: Moderate Pain) 3 Days Qty: 7 0RF Continued trazodone 100 mg tablet 150 mg PO BEDTIME Rx Instructions: 1.5 TABLETS AT BEDTIME pantoprazole [Protonix] 40 mg tablet,delayed release (DR/EC) 40 mg PO DAILY Qty: 42 2RF Rx Instructions: 2 a day for two weeks, 1 a day there after hydrocodone-acetaminophen 7.5-325 mg tablet 1 tab PO Q6H PRN (Reason: pain) 30 Days Qty: 120 0RF ferrous sulfate 325 mg (65 mg iron) Capsule, Extended Release 65 mg PO DAILY acetaminophen [Tylenol 8 Hour] 650 mg Tablet Extended Release 650 mg PO Q12H PRN (Reason: pain) sucralfate 100 mg/mL suspension 1 g PO BID 56 Days Qty: 1120 0RF meloxicam 7.5 mg tablet 7.5 mg PO DAILY Qty: 7 0RF olanzapine 5 mg tablet 5 mg PO QPM Qty: 30 3RF Rx Instructions: Take for 5 days post chemo. prochlorperazine maleate [Compazine] 10 mg tablet 10 mg PO Q4H PRN (Reason: Mild Nausea) Qty: 30 3RF lorazepam 1 mg tablet 0.5 - 1 mg PO Q6H PRN (Reason: Severe Nausea) Qty: 30 3RF Discontinued diazepam 2 mg tablet 2 mg PO TID PRN (Reason: Anxiety) Discharge Orders: Discharge Order (Routine); Ordered 08/09/23 Ordered By: Roseann Schneider Referrals: Jameel Lopez DO [Primary Care Provider] - (Please call Friday to schedule an appointment with Dr. Lopez.) Kian Esparza MD [Hospitalist] - 08/12/23 10:30 am Discharge Diet: Regular Discharge Activity: Resume usual activity Patient Instructions: Morphine, Slow Release (By mouth), Opioid Safety Discharge Attestations Time Spent in Discharge Care*: greater than 30 min Quality Metrics Clinical Quality Measures [ No reported AMI, CVA or VTE this stay] Coding Level of Care Code Acute Code for Chg Fwd Diagnoses Secondary malignant neoplasm of liver and intrahepatic bile duct C78.7 Chronic migraine without aura, intractable, with status migrainosus G43.711 Meniere syndrome H81.09 Colorectal cancer, stage IV C19 Flexion contracture of left knee M24.562 Bilateral chronic knee pain M25.561; M25.562; G89.29 Ataxia R27.0
[2023-08-09] MEDS: HYDROcodone-acetaminophen 7.5-325 mg Tablet 1 TAB PO (13:06)
== END 2023-08-09 14:18 | disposition home or self-care (01) | DRG 847 ==
PROVIDERS: Internal Medicine; Admitting Provider Internal Medicine; PCP Emergency Medicine Emergency Medical Services; Visit Provider Internal Medicine
DX: Z51.11 Encounter for antineoplastic chemotherapy (principal); C7A.1 Malignant poorly differentiated neuroendocrine tumors; R64 Cachexia; C7B.8 Other secondary neuroendocrine tumors; D50.9 Iron deficiency anemia, unspecified; G43.709 Chronic migraine without aura, not intractable, without status migrainosus; M19.90 Unspecified osteoarthritis, unspecified site; H81.09 Meniere's disease, unspecified ear; Z87.891 Personal history of nicotine dependence; M24.562 Contracture, left knee; G89.29 Other chronic pain; M25.562 Pain in left knee; M25.561 Pain in right knee; R27.0 Ataxia, unspecified; Z68.21 Body mass index [BMI] 21.0-21.9, adult
CPT/HCPCS: 36415; 36591; 70450; 80048; 80053; 82140; 82607; 83735; 84100; 85025; 85049; 85384; 85610; 85730; 86140; 96367; 96372; 96375; 96413; 96417; 97110; 99215; J1100; J1200; J1453; J2270; J2405; J2469; J2543; J3490; J7030; J7040; J7050; J8560; J9045; J9181

== ENCOUNTER 2023-08-13 09:30 | Oncology outpatient (recurring) (ONCR) | payer OTHER, SELFPAY ==
--- OUTSIDE RECORDS SUMMARY | 2023-07-22 08:36 | XMS_ITS | Patient Health Record ---
Author Name Unknown Organization [facility] Address [address] [place] [address] Care Team Providers Care Medical Social Consultant Name Role Phone KaleighLa Deshpande MD Primary Care Provider Unav ailable Ángel Horton Unavailable [phone] REASON FOR REFERRAL Reason Continuation of PT f or back pain BIW-TIW x 4-6 weeks Diagnosis 1 Lumbar radiculopathy (M54.16) Diagnosis 2 Lumbar spondylosis ( M47.816) Diagnosis 3 Bulging lumbar disc (M51.36) Referral Organization [facility] Referring Provider First Name Ángel Referring Provider Last Name Clifford Referring Provider Speciality Neurosurge ry Referred Provider Specialty 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 rapist Referral Priority Routine Reason Comprehensive lumbar epidural steroid injections suggesting L5-S1 Diagnosis 1 Lumbar radiculopathy (M54.16) Diagnosis 2 Lumbar spondylosis ( M47.816) Diagnosis 3 Bulging lumbar disc (M51.36) Referral Organization [facility] Referring Provider First Name Ángel Referring Provider Last Name Clifford Referring Provider Speciality Neurosurge ry Referred Provider Jameel New Referred Provider Specialty Pain Medicin e Referral Priority Routine Reason low back pain Diagnosis 1 Low back pain (M54.5 0) Referring Provider First Name La Referring Provider Last Name Adrián Referring Provider Speciality Family Med icine Referred Organization [facility] Referred Provider Ángel Horton Referred Address [address],[place],[address], Referred Provider Specialty Neurosurgery Referral Priority Routine MEDICATIONS Medication SIG (Take, Route, Fr equency, Duration) Notes Start Date End Date Status traZODone HCl Active Pantoprazole Sodium Active diazePAM Active Acetaminophen Active SOCIAL HISTORY Tobacco Use: Social History Observation Description Date Details (start date - stop date) Former Smoker NA - NA Sex Assigned At : Social History Observation Description Sex Assigned At Unknown Tobacco Use/Smoking Question Answer Notes Are you a former smoker How long has it been since you last smoked? > 10 years Alcohol Screen (Audit-C) Question Answer Notes Did you have a drink containing alcohol in the p ast year? No Points 0 Interpretation Negative PROBLEMS Problem Type ICD Code Onset Dates Problem Status W/U Status Risk SNOMED Code Notes Problem Lumbar spondylosis (M47.816) Active confirmed 129615033 Problem Bulging lumbar disc (M51.36) Active confirmed 631412633 VITAL SIGNS Heart Rate 84 /min 05/20/2023 Temperature 98.0 degrees Fahrenheit 05/20/2023 Respiratory Rate 20 /min 05/20/2023 Blood pressure diastolic 68 mm Hg 05/20/2023 Oximetry 95 % 05/20/2023 Height-cm 172.72 cm 05/20/2023 Weight-kg 72.57 kg 05/20/2023 Height 68 in 05/20/2023 Blood pressure systolic 118 mm Hg 05/20/2023 Weight 160 lbs 05/20/2023 BMI 24.33 kg/m2 05/20/2023 Encounters Encounter Location Date Provider Diagnosis [facility] [place] [address] 03/27/2023 Ángel Horton Lumbar radiculopathy M54.16 ; Lumbar spondylosis M47.816 and Bulging lumbar disc M51.36 [facility] [address] [place] [address] 04/15/2023 Ángel Horton [facility] [address] [place] [address] 04/22/2023 Ángel Horton [facility] [address] [place] [address] 05/20/2023 Ángel Horton Lumbar spondylosis M47.816 and Lumbar stenosis M48.061 [facility] [address] [place] [address] 09/17/2022 Ángel Orozcoley Lumbar radiculopathy M54.16 ; Lumbar spondylosis M47.816 and Bulging lumbar disc M51.36 [facility] [address] [place] [facility] [place] [address] 02/18/2023 Ángel Horton [facility] [address] [place] [facility] [place] [place] [address] 03/25/2023 Ángel Orozcoley Lumbar spondylosis M47.816 and Bulging lumbar disc M51.36 ASSESSMENTS Encounter Date Diagnosis Assessment Notes Treatment Notes Treatment Clinical Notes 09/17/2022 Lumbar radiculopathy (ICD-10 - M54.16) 09/17/2022 Lumbar spondylosis (ICD-10 - M47.816) 03/25/2023 Lumbar spondylosis (ICD-10 - M47.816) 03/27/2023 Lumbar radiculopathy (ICD-10 - M54.16) 05/20/2023 Lumbar spondylosis (ICD-10 - M47.816) 05/20/2023 Lumbar stenosis (ICD-10 - M48.061) 03/27/2023 Lumbar spondylosis (ICD-10 - M47.816) 03/25/2023 Bulging lumbar disc (ICD-10 - M51.36) 09/17/2022 Bulging lumbar disc (ICD-10 - M51.36) 03/27/2023 Bulging lumbar disc (ICD-10 - M51.36) 09/17/2022 Other The patient is making improvement with physical therapy but has not been maximized. [facility] to allow them to maximize their efforts. I also suggested a referral to the pain clinic in [place] for a lumbar epidural steroid injection suggesting L5-S1. The patient is in agreement. I will see him back in 6 months or sooner if needed. ROS reviewed I Rachel Dawn LPN am scribing for, and in the presence of Ángel Horton MD. I, Ángel Horton, personally performed the services described in this documentation, as scribed by Rachel Dawn LPN in my presence, and it is both accurate and complete. 03/25/2023 Other The patient has had some improvement with physical therapy but continues to have the low back and hip pain. His last lumbar imaging was over a year ago. I recommended we get a new MRI of the lumbar spine to re-evaluate and the patient agrees. I will see him back after the imaging is completed to review and discuss the findings. I will make further recommendations at that time. EDUARD reviewed I Rachel Dawn LPN am scribing for, and in the presence of Ángel Horton MD. Ángel Angulo, personally performed the services described in this documentation, as scribed by Rachel Dawn LPN in my presence, and it is both accurate and complete. 05/20/2023 Other The MR imaging was reviewed and discussed with the patient. He has lateral recessed stenosis at L4-S1 that is the bulk of his pain. The patient has been through two rounds of physical therapy and continues home exercises that helps according to the patient. I recommended he continue the exercises for now since he has a potential knee infection. He was encouraged to get this resolved before discussing any procedures for his back. The patient will continue follow-ups with Ortho and will call when cleared. If he continues to have increased back pain at that time, he will return for another discussion. The patient is in agreement. EDUARD reviewed I Rachel Dawn LPN am scribing for, and in the presence of Ángel Horton MD. Ángel Angulo, personally performed the services described in this documentation, as scribed by Rachel Dawn LPN in my presence, and it is both accurate and complete. PLAN OF TREATMENT Pending Test Test Name Order Date MRI Lumbar Spine w/o Cont-[id number] 03/25/20 MRI Lumbar Spine w/o Cont-[id number] 03/27/20 Insurance Providers Payer Name Payer Address Payer Phone Subscriber Number Group Number Insured Name Patient Relationship to Insured Coverage Start Date Coverage End Date [employer] [address] [place] [phone] [id number] Brian Rothman Self - patient is the insured MEDICAL (GENERAL) HISTORY Medical History History ICD Code Measles Mumps Arthritis GERD Surgical History Surgery Date(Month/Year) Screws Low Left Femur 03/11/83 Left Knee Replacement 10/25/2013 Left Shoulder and Collar Bone 10/30/19
[2023-07-22 09:57] LABS: Basophils # 0.1 10^3/uL (0.0-0.1); Basophils % 0.3 %; Eosinophils % 0.1 %; Hematocrit 29.8 % (37-53); Lymphocytes # 0.9 10^3/uL (0.8-4.8); Lymphocytes % 5.5 %; Mean Corpuscular HGB Conc 31.5 g/dL (30-55); Mean Corpuscular Hemoglobin 26.6 pg (27-33); Mean Corpuscular Volume 84.4 fl (82-101); Mean Platelet Volume 9.9 fL (7.4-10.4); Monocytes # 1.2 10^3/uL (0.2-0.9); Neutrophils # 14.24 10^3/uL (1.8-7.7); Neutrophils % 86.4 %; Nucleated Red Blood Cells % 0 %; Platelet Count 534 10^3/cmm (157-399); Red Blood Count 3.53 10^6/uL (3.85-5.65); Red Cell Distribution Width 14.6 % (12.1-15.1); White Blood Count 16.49 10^3/uL (3.29-11.43)
[2023-07-22 10:22] LABS: Carcinoembryonic Antigen 0.9 ng/mL (0.0-4.7)
[2023-07-22 10:33] LABS: Alanine Aminotransferase 87 U/L (0-41); Albumin Level 3.7 g/dL (3.5-5.2); Anion Gap 17.7 (5-19); Aspartate Amino Transferase 109 U/L (0-40); Blood Urea Nitrogen 19 mg/dL (8-23); Calcium 9.1 mg/dL (8.5-10.5); Carbon Dioxide 25 mmol/L (22-29); Chloride 99 mmol/L (98-107); Globulin 3.4 g/dL (1.3-4.6); Glucose 146 mg/dL (65-115); Osmolality Calculated 289 mOsm/kg (285-295); Potassium 4.7 mmol/L (3.5-5.1); Sodium 137 mmol/L (136-145); Total Bilirubin 1.1 mg/dL (0.15-1.2); Total Protein 7.1 g/dL (6.6-8.7)
[2023-07-22 10:36] LABS: Alkaline Phosphatase 1002 U/L (40-130)
[2023-07-22 13:23] LABS: Ferritin 879 ng/mL (30-400); Iron 15 ug/dL (59-158); Percent Saturation 11.2 % (20-50); Total Iron Binding Capacity 133 mcg/dl; Unsaturated Iron Binding 118 ug/dL (112-347)
[2023-08-05 12:17] VITALS: BP 88/57; PULSE 105; RESP 18; TEMP 36.9; O2SAT 95
[2023-08-05 12:17] LABS: Basophils % 0.2 %; Eosinophils % 0.1 %; Hematocrit 27.3 % (37-53); Lymphocytes # 0.9 10^3/uL (0.8-4.8); Lymphocytes % 4.9 %; Mean Corpuscular HGB Conc 32.2 g/dL (30-55); Mean Corpuscular Hemoglobin 26.7 pg (27-33); Mean Corpuscular Volume 82.7 fl (82-101); Mean Platelet Volume 10.5 fL (7.4-10.4); Monocytes # 1.5 10^3/uL (0.2-0.9); Monocytes % 8.1 %; Neutrophils # 16.08 10^3/uL (1.8-7.7); Neutrophils % 85.9 %; Nucleated Red Blood Cells % 0 %; Platelet Count 483 10^3/cmm (157-399); Red Cell Distribution Width 16.5 % (12.1-15.1); White Blood Count 18.72 10^3/uL (3.29-11.43)
[2023-08-05 12:20] VITALS: RESP 17; O2SAT 96
[2023-08-05] MEDS: morphine 4 mg/mL SDV 1 mL SUBCUT (12:20)
[2023-08-05] MEDS: sodium chloride 0.9% 1,000 ML 650 ML IV (12:22)
[2023-08-05 12:38] LABS: Alanine Aminotransferase 58 U/L (0-41); Albumin Level 3.2 g/dL (3.5-5.2); Alkaline Phosphatase 939 U/L (40-130); Anion Gap 18.6 (5-19); Aspartate Amino Transferase 135 U/L (0-40); Blood Urea Nitrogen 20 mg/dL (8-23); Carbon Dioxide 25 mmol/L (22-29); Chloride 96 mmol/L (98-107); Globulin 3.4 g/dL (1.3-4.6); Glomerular Filtration Rate 84.4 mL/min (90-130); Glucose 125 mg/dL (65-115); Osmolality Calculated 284 mOsm/kg (285-295); Potassium 4.6 mmol/L (3.5-5.1); Sodium 135 mmol/L (136-145); Total Protein 6.6 g/dL (6.6-8.7)
[2023-08-05] MEDS: OLANZapine 5 mg TABLET PO (13:48)
[2023-08-05] MEDS: fosaprepitant 150 MG in sodium chloride 0.9% 150 ML 300 MG IV (13:49)
[2023-08-05] MEDS: diphenhydrAMINE 50 mg/mL SDV 1mL 25 MG IVP (14:23)
[2023-08-05] MEDS: famotidine 20 mg/2 mL INJ IVP (14:24)
[2023-08-05] MEDS: ondansetron 2 mg/ML SDV 2 mL 8 MG IVP (14:27)
[2023-08-05] MEDS: CARBOplatin 450 MG in sodium chloride 0.9% 500 ML 545 MG IV (14:40)
[2023-08-05] MEDS: sodium chloride 0.9% 250 ML 75 ML IV (15:30)
[2023-08-05 17:00] VITALS: BP 88/56; PULSE 78; RESP 17; TEMP 36.6; O2SAT 96
[2023-08-12 10:52] LABS: Basophils % 0.4 %; Eosinophils % 0.1 %; Lymphocytes # 0.8 10^3/uL (0.8-4.8); Lymphocytes % 9.5 %; Mean Corpuscular HGB Conc 32.3 g/dL (30-55); Mean Corpuscular Hemoglobin 26.4 pg (27-33); Mean Corpuscular Volume 81.8 fl (82-101); Mean Platelet Volume 10.3 fL (7.4-10.4); Monocytes # 0.1 10^3/uL (0.2-0.9); Monocytes % 1.3 %; Neutrophils # 7.44 10^3/uL (1.8-7.7); Neutrophils % 86.7 %; Nucleated Red Blood Cells % 0 %; Platelet Count 260 10^3/cmm (157-399); Red Blood Count 2.69 10^6/uL (3.85-5.65); Red Cell Distribution Width 17.3 % (12.1-15.1); White Blood Count 8.57 10^3/uL (3.29-11.43)
[2023-08-12 11:10] LABS: Alanine Aminotransferase 66 U/L (0-41); Albumin Level 3.1 g/dL (3.5-5.2); Alkaline Phosphatase 728 U/L (40-130); Anion Gap 16.5 (5-19); Aspartate Amino Transferase 159 U/L (0-40); Blood Urea Nitrogen 19 mg/dL (8-23); Calcium 8.5 mg/dL (8.5-10.5); Carbon Dioxide 24 mmol/L (22-29); Chloride 95 mmol/L (98-107); Globulin 2.9 g/dL (1.3-4.6); Glomerular Filtration Rate 84.4 mL/min (90-130); Glucose 140 mg/dL (65-115); Osmolality Calculated 277 mOsm/kg (285-295); Potassium 4.5 mmol/L (3.5-5.1); Sodium 131 mmol/L (136-145); Total Bilirubin 2.9 mg/dL (0.15-1.2)
[2023-08-13] VITALS (10 sets, daily range): BP systolic 101–111; BP diastolic 62–68; PULSE 83–104; RESP 16; TEMP 36.5–37.1; O2SAT 97–99
[2023-08-13] MEDS: sodium chloride 0.9% 250 mL Bag IV (10:37)
[2023-08-13] MEDS: ondansetron 2 mg/ML SDV 2 mL 8 MG IVP (10:38)
[2023-08-13] MEDS: morphine 4 mg/mL SDV 1 mL SUBCUT (10:38)
[2023-08-13] MEDS: diphenhydrAMINE 25 mg Capsule PO (10:50)
[2023-08-13] MEDS: acetaminophen 325 mg Tablet 650 MG PO (10:50)
== END 2023-08-14 23:59 | disposition home or self-care (01) ==
PROVIDERS: Internal Medicine Medical Oncology; PCP Emergency Medicine Emergency Medical Services; Visit Provider Internal Medicine Medical Oncology
DX: D64.9 Anemia, unspecified; C78.7 Secondary malignant neoplasm of liver and intrahepatic bile duct
CPT/HCPCS: 36415; 36430; 36591; 80053; 82378; 82728; 83540; 83550; 85025; 86850; 86900; 86920; 96367; 96372; 96375; 96413; 96417; 99205; 99215; J1100; J1200; J1453; J1642; J2270; J2405; J3490; J7030; J7040; J7050; J9045; J9181; P9016

== ENCOUNTER 2023-08-15 19:56 | Emergency (ER) | payer OTHER, SELFPAY ==
[2023-08-15 20:18] VITALS: BP 107/67; PULSE 105; RESP 22; TEMP 37.6; O2SAT 96; BMI 18.6
--- NOTE | 2023-08-15 20:33 | CTR_ITS ---
PROCEDURE INFORMATION: Exam: CT Abdomen And Pelvis With Contrast Exam date and time: 08/15/2023 9:30 PM Age: 67 years old Clinical indication: Abdominal pain; Generalized; Patient HX: Abd pain with nausea. History of metastatic colorectal cancer. ; Additional info: Abd pain, HX of colon CA TECHNIQUE: Imaging protocol: Computed tomography of the abdomen and pelvis with contrast. Radiation optimization: All CT scans at this facility use at least one of these dose optimization techniques: automated exposure control; mA and/or kV adjustment per patient size (includes targeted exams where dose is matched to clinical indication); or iterative reconstruction. Contrast material: OMNI 350; Contrast volume: 100 ml; Contrast route: INTRAVENOUS (IV); REPORTING DATA: Count of CT and Cardiac NM exams in prior 12 months: This patient has received 2 known CTs and 0 known cardiac nuclear medicine studies in the 12 months prior to the current study. COMPARISON: CT chest abdpel w/*[id number] 07/14/2023 2:10 PM RADIATION DOSE METRICS: Total DLP (mGy-cm): 428.69 FINDINGS: Lungs: 4 mm nodular pleural-based opacity in the posterior lower lobe, series 3, image 15, and 2 mm nodular pleural-based opacity in the posterolateral right lower lobe, series 3, image 1, most likely atelectasis/scarring, but attention on follow-up recommended. Liver: Redemonstrated innumerable hepatic metastases, all of which appear slightly increased in size from 07/14/2023. Computer Help Desk Specialist lesion in segment 7 measures up to 5.0 cm, series 3, image 14, previously 3.9 cm. There are also multiple new hepatic lesions. Gallbladder and bile ducts: Gallbladder is mildly distended. No calcified stones, wall thickening, or pericholecystic fluid. There is new mild diffuse intrahepatic bile duct dilation and mild prominence of the common hepatic duct. Pancreas: Unremarkable. No duct dilation. Spleen: Unremarkable. Adrenal glands: Unremarkable. Kidneys and ureters: No hydronephrosis or hydroureter. No renal or ureteral calculi. Stomach and bowel: Redemonstrated circumferential soft tissue mass in the distal transverse colon, series 3, image 56, difficult to measure, but appears increased in size from prior. Adjacent soft tissue nodules, may be lymph nodes or omental deposits, also slightly increased in size from prior. There is loss of fat plane between the transverse colon mass and adjacent loops of small bowel, series 3, image 50, again concerning for direct invasion into adjacent small bowel loops. Large colonic stool burden. No evidence of bowel obstruction. Appendix: No evidence of appendicitis. Intraperitoneal space: Small volume abdominal and pelvic ascites, new from prior. Vasculature: No abdominal aortic aneurysm. Lymph nodes: Similar enlarged left para-aortic lymph nodes. Urinary bladder: Bladder is distended. Reproductive: Mild prostatomegaly. Bones/joints: No acute fracture. No discrete lytic or blastic osseous lesions identified. Soft tissues: Unremarkable. CT/CT abdomen pelvis w con* [id number] IMPRESSION: 1. Increased size and number of innumerable hepatic metastases. 2. Redemonstrated neoplasm in the distal transverse colon, somewhat difficult to measure, but also appears increased in size from prior. Adjacent metastatic lymph nodes versus omental deposits, also slightly increased in size/conspicuity. 3. Colon mass again extends to and possibly directly invades adjacent loop of small bowel, similar to prior. 4. New mild diffuse intrahepatic bile duct dilation and mild prominence of the common hepatic duct, nonspecific. 5. New small volume ascites. 6. Few sub 5 mm pleural-based nodular opacities in the lungs, most likely atelectasis/scarring, but attention on follow-up recommended.
[2023-08-15 20:55] LABS: Hematocrit 25.7 % (37-53); Lymphocytes # 0.5 10^3/uL (0.8-4.8); Lymphocytes % 20.5 %; Mean Corpuscular HGB Conc 33.5 g/dL (30-55); Mean Corpuscular Hemoglobin 27.4 pg (27-33); Mean Corpuscular Volume 81.8 fl (82-101); Mean Platelet Volume 11.9 fL (7.4-10.4); Monocytes # 0.1 10^3/uL (0.2-0.9); Monocytes % 6.4 %; Neutrophils # 1.59 10^3/uL (1.8-7.7); Neutrophils % 72.2 %; Nucleated Red Blood Cells % 0 %; Platelet Count 154 10^3/cmm (157-399); Red Blood Count 3.14 10^6/uL (3.85-5.65); Red Cell Distribution Width 17.8 % (12.1-15.1)
[2023-08-15 21:12] LABS: Alanine Aminotransferase 64 U/L (0-41); Albumin Level 3.1 g/dL (3.5-5.2); Anion Gap 15.3 (5-19); Aspartate Amino Transferase 86 U/L (0-40); Blood Urea Nitrogen 23 mg/dL (8-23); C Reactive Protein 147.5 mg/L (0.0-4.9); Calcium 8.6 mg/dL (8.5-10.5); Carbon Dioxide 26 mmol/L (22-29); Chloride 97 mmol/L (98-107); Glomerular Filtration Rate 112.8 mL/min (90-130); Glucose 98 mg/dL (65-115); Lipase 33 U/L (13-60); Osmolality Calculated 282 mOsm/kg (285-295); Potassium 4.3 mmol/L (3.5-5.1); Sodium 134 mmol/L (136-145); Total Bilirubin 2.3 mg/dL (0.15-1.2); Total Protein 6.1 g/dL (6.6-8.7)
[2023-08-15 21:13] LABS: Lactic Sepsis W/Reflex 2.2 mmol/L (0.5-2.2)
--- NOTE | 2023-08-15 21:23 | ED_ITS ---
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 He presents with increased pain today, he had a fever at home. He was having trouble previously staying hydrated, received IV hydration at the cancer center earlier today. No vomiting. No diarrhea. He states that he had a hard bowel movement this morning. He took 15 mg of morphine orally before coming to the ER, with little improvement. He had a temperature at home, 102 per his . 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 Complicated by family history of prostate cancer in father. Normal KATHERIN at first evaluation. PSA ranging from 5-4.6. Recommended initially a conservative approach. Meniere syndrome Chronic migraine without aura, intractable, with status migrainosus Flexion contracture of left knee Surgical History Port-A-Cath in place History of liver biopsy History of shoulder surgery History of tonsillectomy History of colonoscopy with polypectomy History of knee replacement Family History Father , AT AGE 85 Heart attack Mother Arthritis Heart disease Denies family history of Anesthesia complication Bleeding disorder Social History Smoking and tobacco/nicotine status: former use of tobacco/nicotine Quit status (tobacco/nicotine): has quit using Year quit tobacco: 2012 Former quit date comment: smoked 30 years Alcohol intake: never Substance/Drug Use: never Marital status: Current occupational status: retired Physical Exam 2 Const: GENERAL APPEARANCE: cooperative, ill appearing (mildly) and frail appearing HENMT: COMMON NORMALS: normocephalic, atraumatic and Normal external nose present HEAD & SCALP: normocephalic and atraumatic NOSE: Normal external nose present and Normal nares present Eye: COMMON NORMALS: Equal, round and reactive pupils present and EOMs intact bilaterally PUPIL: Yes Equal, round and reactive pupils present Chest: CHEST: Yes Symmetrical chest wall rise Resp: COMMON NORMALS: normal respiratory effort, No use of accessory muscles and clear to auscultation bilaterally AUSCULTATION: clear to auscultation bilaterally Cardio: COMMON NORMALS: regular rate, regular rhythm and Peripheral pulses 2+ throughout RATE: regular rate RHYTHM: regular rhythm PERIPHERAL PULSES: Peripheral pulses 2+ throughout GI: AUSCULTATION: Yes Hypoactive bowel sounds present PALPATION: Yes Tenderness to palpation present (GI) (diffuse) Course 2 Vital Signs: Vital signs: Vital Signs Temperature 99.6 F 08/15/23 20:18 Pulse Rate 98 08/15/23 23:28 Respiratory Rate 23 H 08/15/23 23:28 Blood Pressure 111/63 08/15/23 23:28 Pulse Oximetry 96 08/15/23 23:28 Oxygen Delivery Me thod Room Air 08/15/23 20:18 MDM - Abdominal Pain Medical Decision Making White blood cell count is 2.2, the patient is not critically neutropenic. Hemoglobin is 8.6 which is stable from earlier today. BMP is not remarkable. Alkaline phosphatase is 1165, which is consistent with labs earlier today. CRP is 147, which is slightly decreased from prior. Lactic acid is 2.2. Total bilirubin is 2.3 which is stable from prior. Awaiting CT results. Pain is more controlled after IV morphine here. Patient is improved after IV morphine and fluids here. He still having some pain. CT does not reveal any acute findings. Discussed observation admission for pain control hydration versus going home. The patient would like to go home. Family is okay with taking him home, provided adequate pain relief. He is given a fentanyl patch, 75 mcg given the amount of morphine he is having to take at home. Will prescribe Duragesic to start in 72 hours as well. Will continue morphine if needed. There was some concern about starting at 75 mics of fentanyl with the Duragesic patch from pharmacy, but as the patient is using 60 mg of morphine plus hydrocodone daily, it was thought appropriate to start at that level. Liquid diet for the next 24 hours. He will return for any problems. Lab Data 08/15/23 20:43 08/15/23 20:43 Labs/Radiology: Radiology Impressions Abdomen/Pelvis CT 08/15/23 20:33 IMPRESSION: 1. Increased size and number of innumerable hepatic metastases. 2. Redemonstrated neoplasm in the distal transverse colon, somewhat difficult to measure, but also appears increased in size from prior. Adjacent metastatic lymph nodes versus omental deposits, also slightly increased in size/conspicuity. 3. Colon mass again extends to and possibly directly invades adjacent loop of small bowel, similar to prior. 4. New mild diffuse intrahepatic bile duct dilation and mild prominence of the common hepatic duct, nonspecific. 5. New small volume ascites. 6. Few sub 5 mm pleural-based nodular opacities in the lungs, most likely atelectasis/scarring, but attention on follow-up recommended. Laboratory Results WBC 2.20 10^3/uL (3.29-11.43) L 08/15/23 20:43 RBC 3.14 10^6/uL (3.85-5.65) L 08/15/23 20:43 Hgb 8.60 g/dL (11.27-16.99) L 08/15/23 20:43 Hct 25.7 % (37-53) L 08/15/23 20:43 MCV 81.8 fl (82-101) L 08/15/23 20:43 MCH 27.4 pg (27-33) 08/15/23 20:43 MCHC 33.5 g/dL (30-55) 08/15/23 20:43 RDW 17.8 % (12.1-15.1) H 08/15/23 20:43 Plt Count 154 10^3/cmm (157-399) L 08/15/23 20:43 MPV 11.9 fL (7.4-10.4) H 08/15/23 20:43 Neut % (Auto) 72.2 % 08/15/23 20:43 Lymph % (Auto) 20.5 % 08/15/23 20:43 [place] % (Auto) 6.4 % 08/15/23 20:43 Eos % (Auto) 0.0 % 08/15/23 20:43 Baso % (Auto) 0.0 % 08/15/23 20:43 Neut # (Auto) 1.59 10^3/uL (1.8-7.7) L 08/15/23 20:43 Lymph # (Auto) 0.5 10^3/uL (0.8-4.8) L 08/15/23 20:43 [place] # (Auto) 0.1 10^3/uL (0.2-0.9) L 08/15/23 20:43 Eos # (Auto) 0.0 10^3/uL (0.0-0.8) 08/15/23 20:43 Baso # (Auto) 0.0 10^3/uL (0.0-0.1) 08/15/23 20:43 Nucleated RBC % (auto) 0 % 08/15/23 20:43 Nucleated RBCs # 0.0 /100WBC 08/15/23 20:43 Sodium 134 mmol/L (136-145) L 08/15/23 20:43 Potassium 4.3 mmol/L (3.5-5.1) 08/15/23 20:43 Chloride 97 mmol/L (98-107) L 08/15/23 20:43 Carbon Dioxide 26 mmol/L (22-29) 08/15/23 20:43 Anion Gap 15.3 (5-19) 08/15/23 20:43 BUN 23 mg/dL (8-23) 08/15/23 20:43 Creatinine 0.7 mg/dL (0.7-1.2) 08/15/23 20:43 GFR Calculation 112.8 mL/min (90-130) 08/15/23 20:43 Glucose 98 mg/dL (65-115) 08/15/23 20:43 Calculated Osmolality 282 mOsm/kg (285-295) L 08/15/23 20:43 Lactic Acid 2.2 mmol/L (0.5-2.2) 08/15/23 20:43 Lactic Acid (Sepsis) 2.1 mmol/L (0.5-2.2) 08/16/23 00:10 Calcium 8.6 mg/dL (8.5-10.5) 08/15/23 20:43 Total Bilirubin 2.3 mg/dL (0.15-1.2) H 08/15/23 20:43 AST 86 U/L (0-40) H 08/15/23 20:43 ALT 64 U/L (0-41) H 08/15/23 20:43 Alkaline Phosphatase 1165 U/L (40-130) H* 08/15/23 20:43 C-Reactive Protein 147.5 mg/L (0.0-4.9) H 08/15/23 20:43 Total Protein 6.1 g/dL (6.6-8.7) L 08/15/23 20:43 Albumin 3.1 g/dL (3.5-5.2) L 08/15/23 20:43 Globulin 3.0 g/dL (1.3-4.6) 08/15/23 20:43 Lipase 33 U/L (13-60) 08/15/23 20:43 Urine Color Yellow (Yellow) 08/15/23 22:53 Urine Appearance Clear (CLEAR) 08/15/23 22:53 Urine pH 8 (5-7) H 08/15/23 22:53 Ur Specific [place] 1.005 (1.005-1.030) 08/15/23 22:53 Urine Protein Trace (Negative) 08/15/23 22:53 Urine Glucose (UA) Norm (Normal) 08/15/23 22:53 Urine Ketones 1+ (Negative) H 08/15/23 22:53 Urine Blood Neg (Negative) 08/15/23 22:53 Urine Nitrate Negative (Negative) 08/15/23 22:53 Urine Bilirubin Neg (Negative) 08/15/23 22:53 Urine Urobilinogen 1 mg/dL (Negative) H 08/15/23 22:53 Ur Leukocyte Esterase Negative (Negative) 08/15/23 22:53 Urine RBC None /hpf (0-2) 08/15/23 22:53 Urine WBC None /hpf (0-5) 08/15/23 22:53 Ur Squamous Epith Cells Rare /hpf (0-5) 08/15/23 22:53 Amorphous Sediment Not Reportable 08/15/23 22:53 Urine Bacteria None /hpf (NONE) 08/15/23 22:53 All radiology interpretation(s) finalized by discharge Discharge Plan Discharge Patient Disposition: Home Clinical Impression: Secondary malignant neoplasm of liver and intrahepatic bile duct, Colorectal cancer, stage IV, Abdominal pain Condition: Stable Prescriptions: New cefdinir 300 mg capsule 300 mg PO BID 10 Days Qty: 20 0RF fentanyl 75 mcg/hr patch 72 hour 1 patch transdermal Q72H Qty: 5 0RF ondansetron 4 mg film 4 mg PO DAILY PRN (Reason: nausea and vomiting) Qty: 20 0RF No Action trazodone 100 mg tablet 150 mg PO BEDTIME Rx Instructions: 1.5 TABLETS AT BEDTIME pantoprazole [Protonix] 40 mg tablet,delayed release (DR/EC) 40 mg PO DAILY Qty: 42 2RF Rx Instructions: 2 a day for two weeks, 1 a day there after hydrocodone-acetaminophen 7.5-325 mg tablet 1 tab PO Q6H PRN (Reason: pain) 30 Days Qty: 120 0RF morphine 15 mg tablet 15 mg PO Q6H PRN (Reason: Moderate Pain) 30 Days Qty: 120 0RF ferrous sulfate 325 mg (65 mg iron) Capsule, Extended Release 65 mg PO DAILY acetaminophen [Tylenol 8 Hour] 650 mg Tablet Extended Release 650 mg PO Q12H PRN (Reason: pain) sucralfate 100 mg/mL suspension 1 g PO BID 56 Days Qty: 1120 0RF meloxicam 7.5 mg tablet 7.5 mg PO DAILY Qty: 7 0RF olanzapine 5 mg tablet 5 mg PO QPM Qty: 30 3RF Rx Instructions: Take for 5 days post chemo. prochlorperazine maleate [Compazine] 10 mg tablet 10 mg PO Q4H PRN (Reason: Mild Nausea) Qty: 30 3RF lorazepam 1 mg tablet 0.5 - 1 mg PO Q6H PRN (Reason: Severe Nausea) Qty: 30 3RF Discharge Orders: Discharge ED (Routine); Ordered 08/16/23 Ordered By: Kameron Conde Referrals: Jameel Lopez DO [Primary Care Provider] - Kian Esparza MD [Hospitalist] - 1-3 days Patient Instructions: Abdominal Pain (ED), Opioid Safety, Pain Management Activity Restrictions/Additional Instructions: Follow a liquid diet for the next 24 hours, then you may advance with decreased pain, and no vomiting. Change your pain patch every 3 days. Would consider using morphine 3 times a day scheduled for continued pain despite the patch, with hydrocodone alternating the morphine by 3 hours for breakthrough pain as needed. Watch closely for sedation, hallucinations, decreased breathing. Antibiotics as directed. Return for fever greater than 100 despite 2-3 more doses of antibiotics, vomiting liquids or medications, inability to control pain, any of the mental status changes listed above, or any other concerning symptoms. Call your doctor on Friday. Coding Level of Care Code ED Perforating Machine Operator for Kolton Ulloa
[2023-08-15 21:24] LABS: Alkaline Phosphatase 1165 U/L (40-130)
[2023-08-15 21:29] VITALS: BP 111/63; PULSE 100; RESP 16; O2SAT 96
[2023-08-15] MEDS: iohexol 350 mg/mL 500 mL Btl (per mL) IV (21:35)
[2023-08-15] MEDS: ondansetron 2 mg/ML SDV 2 mL 4 MG IVP (21:49)
[2023-08-15 21:51] VITALS: RESP 14; O2SAT 96
[2023-08-15] MEDS: morphine 4 mg/mL SDV 1 mL IVP (21:51)
[2023-08-15] MEDS: sodium chloride 0.9% 1,000 ML 999 ML IV (21:56)
[2023-08-15 22:41] LABS: Reflex Lactate Order REFLEX LACTIC ORDERD
[2023-08-15] MEDS: lidocaine 2% viscous 15 ML, aluminum-mag hydrox-simethicon 30 ML, sucralfate oral liq 1 GM PO (22:43)
--- NOTE | 2023-08-15 22:45 | PC.NURSE ---
pt was given 4mg more of morphine at 2245 to finish the 8mg of incremental dose ordered by Dr. Conde.
[2023-08-15 23:17] LABS: Glucose Urine UA Norm (Normal); Ketones Urine 1+ (Negative); Protein Urine Trace (Negative); Specific Gravity, Urine 1.005 (1.005-1.030); Urine Appearance Clear (CLEAR); Urine Color Yellow (Yellow); pH Urine 8 (5-7)
[2023-08-15 23:18] LABS: Add Urine Culture? No; Add Urine Microscopic? YES; Bilirubin Urine Neg (Negative); Blood Urine Neg (Negative); Leukocyte Esterase Urine Negative (Negative); Nitrate Urine Negative (Negative); Squamous Epithelial Cell Urine RARE /hpf (0-5); Urobilinogen Urine 1 mg/dL (Negative)
[2023-08-15 23:28] VITALS: BP 111/63; PULSE 98; RESP 23; O2SAT 96
[2023-08-16 00:39] LABS: Lactic Acid level (Lactate) 2.1 mmol/L (0.5-2.2)
[2023-08-16] MEDS: cefdinir 300 MG CAPSULE PO (01:01)
[2023-08-16] MEDS: fentaNYL 25 mcg Patch 1 PATCH (01:36)
[2023-08-16] MEDS: fentaNYL 50 mcg Patch 1 PATCH (01:38)
--- NOTE | 2023-08-16 02:10 | PC.NURSE ---
The 75 mcg Fentanyl patch was not available so we placed a 50 mcg & a 25 mcg Fentanyl patch as instructed by Dr. Conde.
== END 2023-08-16 02:17 | disposition home or self-care (01) ==
PROVIDERS: Emergency Provider Emergency Medicine; PCP Emergency Medicine Emergency Medical Services
DX: C19 Malignant neoplasm of rectosigmoid junction (principal); C78.7 Secondary malignant neoplasm of liver and intrahepatic bile duct; Z87.891 Personal history of nicotine dependence
CPT/HCPCS: 36415; 74177; 80053; 81001; 83605; 83690; 85025; 86140; 96374; 96375; 99285; J1642; J2270; J2405; J7030; Q9967

== ENCOUNTER 2023-08-17 08:10 | Inpatient (IN) | payer OTHER, SELFPAY ==
[2023-08-17] VITALS (31 sets, daily range): BP systolic 88–98; BP diastolic 55–70; PULSE 100–150; RESP 12–35; TEMP 36.8–39; O2SAT 78–100; BMI 19.0
--- NOTE | 2023-08-17 08:21 | ECG_ITS ---
[facility] Test Date: 2023-08-17 Pat Name: Brian Rothman Department: Room: Gender: Male Probate Paralegal: : 1955 Requested By: Kameron Rees Order Number: [id number] Louise MD: Torres Goncalves M.D. Measurements Intervals [place] Rate: 129 P: 60 OR: 147 QRS: 25 QRSD: 87 T: 69 QT: 334 QTc: 489 Interpretive Statements SINUS TACHYCARDIA LOW QRS VOLTAGE IN EXTREMITY LEADS [QRS DEFLECTION < 0.5 mV IN LIMB LEADS] PATTERN CONSISTENT WITH PULMONARY DISEASE MODERATE T-WAVE ABNORMALITY, CONSIDER ANTEROLATERAL ISCHEMIA [-0.1+ mV T-WAVE IN V3-V6] Compared to ECG 12/18/2017 13:01:46 Low QRS voltage now present T-wave abnormality now present Possible ischemia now present Indeterminate axis no longer present Electronically Signed On 08-18-2023 8:18:26 EMERGENCY VETERINARY ASSISTANT by Torres Goncalves M.D. [id number]
[2023-08-17] MEDS: acetaminophen 325 mg Tablet 650 MG PO (08:41)
--- NOTE | 2023-08-17 08:44 | CTR_ITS ---
PROCEDURE INFORMATION: Exam: CT Chest With Contrast; Diagnostic Exam date and time: 08/17/2023 9:56 AM Age: 67 years old Clinical indication: Abdominal pain; Generalized; Chest pressure; Additional info: Chest and abd pain, fever, hypoxia tachycardia TECHNIQUE: Imaging protocol: Diagnostic computed tomography of the chest with contrast. Radiation optimization: All CT scans at this facility use at least one of these dose optimization techniques: automated exposure control; mA and/or kV adjustment per patient size (includes targeted exams where dose is matched to clinical indication); or iterative reconstruction. Contrast material: OMNI 350; Contrast volume: 100 ml; Contrast route: INTRAVENOUS (IV); REPORTING DATA: Count of CT and Cardiac NM exams in prior 12 months: This patient has received 3 known CTs and 0 known cardiac nuclear medicine studies in the 12 months prior to the current study. COMPARISON: CT chest abdpel w/*[id number] 07/14/2023 2:10 PM RADIATION DOSE METRICS: Total DLP (mGy-cm): 798.56 FINDINGS: Tubes, catheters and devices: There is a right chest port with the line tip appropriately positioned in the lower SVC near the cavoatrial junction. Lungs: There is mild upper lung predominant centrilobular emphysema. There is a calcified granuloma in the right upper lobe. There is a calcified granuloma in the right middle lobe. There is dependent consolidation in the superior and posterior basal segments of the right lower lobe, new since 08/15/2023. Trachea and central bronchi are normal. Mild ill-defined subpleural opacity is seen in the medial basal segment of the left lower lobe, not imaged on the prior. Pleural spaces: There is no pleural effusion or pneumothorax. Heart: Heart size is normal. There is no pericardial effusion. Coronary arteries: There is moderate coronary artery calcification. Lymph nodes: There is no mediastinal or hilar lymphadenopathy. Vasculature: The aorta is unremarkable. There is no aneurysm. The central pulmonary arteries are unremarkable. Bones/joints: Bones are unremarkable. Soft tissues: The extrathoracic soft tissues are unremarkable. COMMENTS: In the absence of a history or active diagnosis of lung cancer, it is recommended that this patient with emphysema be evaluated for enrollment in a low dose CT lung cancer screening program. PROCEDURE INFORMATION: Exam: CT Abdomen And Pelvis With Contrast Exam date and time: 08/17/2023 9:56 AM Age: 67 years old Clinical indication: Abdominal pain; Generalized; Chest pressure; Additional info: Chest and abd pain, fever, hypoxia tachycardia TECHNIQUE: Imaging protocol: Computed tomography of the abdomen and pelvis with contrast. Radiation optimization: All CT scans at this facility use at least one of these dose optimization techniques: automated exposure control; mA and/or kV adjustment per patient size (includes targeted exams where dose is matched to clinical indication); or iterative reconstruction. Contrast material: OMNI 350; Contrast volume: 100 ml; Contrast route: INTRAVENOUS (IV); REPORTING DATA: Count of CT and Cardiac NM exams in prior 12 months: This patient has received 3 known CTs and 0 known cardiac nuclear medicine studies in the 12 months prior to the current study. COMPARISON: CT abdomen pelvis w con* [id number] 08/15/2023 9:30 PM RADIATION DOSE METRICS: Total DLP (mGy-cm): 798.56 FINDINGS: Liver: The liver is markedly enlarged. Innumerable ill-defined hypodense hepatic masses consistent with metastases. Gallbladder and bile ducts: The gallbladder is normal. There is no biliary dilation. Pancreas: The pancreas is unremarkable. Spleen: The spleen is mildly enlarged. No focal splenic abnormality. Adrenal glands: The adrenal glands are unremarkable. Kidneys and ureters: The kidneys are unremarkable. No hydronephrosis or stones. No ureteral dilation. Stomach and bowel: There is a 7.7 x 4.4 x 8.9 cm heterogeneously enhancing mass involving the distal transverse colon. There are adjacent satellite nodules in the omentum measuring up to 5 mm. There is mild stool distention of the proximal transverse colon. The ascending colon is unremarkable. There is mild stool distention of descending and sigmoid colon. No sign of perforation. The stomach is decompressed, preventing meaningful evaluation of wall thickness. The small bowel is nondilated. Appendix: The appendix is normal. Intraperitoneal space: There is no free air or significant intraperitoneal free fluid. Vasculature: There is mild aortic atherosclerotic disease. The portal, splenic and superior mesenteric veins are patent. Lymph nodes: No pelvic or inguinal lymphadenopathy. Enlarged left upper periaortic retroperitoneal lymph nodes measuring 19 x 18 mm on axial series 6, image 34. No mesenteric lymphadenopathy. Urinary bladder: The urinary bladder is unremarkable. Reproductive: There is nonspecific mild enlargement of the prostate gland. Bones/joints: There is moderate degenerative disease in the lumbar spine. The pelvis and hips are unremarkable. Soft tissues: The abdominal wall is intact. CT/CT chest abdpel w/*[id number] IMPRESSION: 1. New consolidation in the right lower lobe. Minimal consolidation in the left lower lobe, not previously imaged. Findings are consistent with aspiration or infection. 2. Incidental findings above. IMPRESSION: 1. No acute intra-abdominal findings. 2. Distal transverse colonic mass with adjacent satellite nodules in the omentum consistent with a malignant neoplasm. 3. Extensive liver metastases. 4. Left upper para-aortic retroperitoneal lymphadenopathy is likely metastatic. 5. Hepatosplenomegaly.
[2023-08-17 08:57] LABS: Hematocrit 28.7 % (37-53); Lymphocytes # 0.2 10^3/uL (0.8-4.8); Lymphocytes % 31.9 %; Mean Corpuscular HGB Conc 32.1 g/dL (30-55); Mean Corpuscular Hemoglobin 27.1 pg (27-33); Mean Corpuscular Volume 84.7 fl (82-101); Mean Platelet Volume 10.9 fL (7.4-10.4); Monocytes # 0.1 10^3/uL (0.2-0.9); Monocytes % 12.8 %; Neutrophils % 55.3 %; Nucleated Red Blood Cells % 0 %; Platelet Count 173 10^3/cmm (157-399); Red Blood Count 3.39 10^6/uL (3.85-5.65); Red Cell Distribution Width 17.8 % (12.1-15.1)
[2023-08-17 09:00] LABS: ABG PCO2 32.1 mmHg (35-45); ABG PH Result 7.49 (7.35-7.45); Arterial Blood Gas Hematocrit 34.8 % (42-52); Base Excess ABG 1.7 mmol/L (-2.0-2.0); Blood Gas Allen Test Pos; Blood Gas Operator Identificat glc; Blood Gas Sample Site Radial, right; Blood Gas Sample Type Arterial; HCO3 ABG 24.6 mmol/L (22-26); Oxygen Device NC; PO2 ABG 65.4 mmHg (80.0-100.0); PO2 FiO2 Ratio Arterial Blood 0
[2023-08-17 09:06] LABS: INR 1.16 (0.8-1.2)
[2023-08-17 09:07] LABS: Partial Thromboplastin Time 29.8 SECONDS (23.9-36.7)
--- NOTE | 2023-08-17 09:14 | W.ED.WEAKNES ---
Documented by User: Kameron Conde DO 08/17/23 20:20 HPI - Weakness General: Chief complaint: ER Hold Stated complaint: WEAKNESS Time Seen by Provider: 08/17/23 08:24 History of Present Illness: 67-year-old male with a history of stage IV colon cancer. He was seen by me 2 days ago in the emergency department. He had had a fever, and increased pain to his belly. He was sent home on antibiotics, liquid diet, and pain medication to closely observe for continued fever. He returns this morning with continued fever, tachycardia, increased pain despite increase in pain medication, and some shortness of breath. He is generally weak also. He is still wearing the Duragesic patch she was sent home with. He has been taking his antibiotics. Fever is 102 here. 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 Complicated by family history of prostate cancer in father. Normal KATHERIN at first evaluation. PSA ranging from 5-4.6. Recommended initially a conservative approach. Meniere syndrome Chronic migraine without aura, intractable, with status migrainosus Flexion contracture of left knee Surgical History Port-A-Cath in place History of liver biopsy History of shoulder surgery History of tonsillectomy History of colonoscopy with polypectomy History of knee replacement Family History Father , AT AGE 85 Heart attack Mother Arthritis Heart disease Denies family history of Anesthesia complication Bleeding disorder Social History Smoking and tobacco/nicotine status: former use of tobacco/nicotine Quit status (tobacco/nicotine): has quit using Year quit tobacco: 2012 Former quit date comment: smoked 30 years Alcohol intake: never Substance/Drug Use: never Marital status: Current occupational status: retired Physical Exam Const: GENERAL APPEARANCE: in distress, ill appearing and frail appearing HENMT: COMMON NORMALS: normocephalic and Normal external nose present HEAD & SCALP: normocephalic FACE & SINUS: normal facial exam NOSE: Normal external nose present Eye: COMMON NORMALS: Equal, round and reactive pupils present and EOMs intact bilaterally PUPIL: Yes Equal, round and reactive pupils present Neck/C-Spine: GENERAL: Yes trachea midline Chest: CHEST: Yes Symmetrical chest wall rise Resp: EFFORT & INSPECTION: Yes tachypneic and Yes labored AUSCULTATION: diminished lung sounds Cardio: COMMON NORMALS: regular rhythm RATE: tachycardic RHYTHM: regular rhythm GI: INSPECTION: No abdominal distension PALPATION: Yes Tenderness to palpation present (GI) (diffuse) and Yes Guarding due to palpation present (GI) Extremity: COMMON NORMALS: no pedal edema Course Vital Signs: Vital signs: Vital Signs Temperature 99.3 F 08/17/23 20:00 Pulse Rate 105 H 08/17/23 20:00 Respiratory Rate 28 H 08/17/23 20:00 Blood Pressure 95/57 08/17/23 20:00 Pulse Oximetry 98 08/17/23 20:00 Oxygen Delivery Me thod Nasal Cannula 08/17/23 20:00 Oxygen Flow Rate 8 08/17/23 19:48 MDM - Weakness Medical Decision Making The patient is in mild respiratory distress, with tachypnea. He is hypoxic. He is tachycardic and febrile. Mildly hypotensive. He is receiving a sepsis bolus, vancomycin, Zosyn after blood cultures. Blood gas shows respiratory alkalosis. Other laboratories pending. CT of the chest abdomen pelvis is pending. He will be checked out at shift change. Lab Data 08/17/23 08:45 08/17/23 08:45 Radiology Impressions Chest/Abdomen/Pelvis CT 08/17/23 08:44 IMPRESSION: 1. New consolidation in the right lower lobe. Minimal consolidation in the left lower lobe, not previously imaged. Findings are consistent with aspiration or infection. 2. Incidental findings above. IMPRESSION: 1. No acute intra-abdominal findings. 2. Distal transverse colonic mass with adjacent satellite nodules in the omentum consistent with a malignant neoplasm. 3. Extensive liver metastases. 4. Left upper para-aortic retroperitoneal lymphadenopathy is likely metastatic. 5. Hepatosplenomegaly. Laboratory Results WBC 0.47 10^3/uL (3.29-11.43) L* 08/17/23 08:45 RBC 3.39 10^6/uL (3.85-5.65) L 08/17/23 08:45 Hgb 9.20 g/dL (11.27-16.99) L 08/17/23 08:45 Hct 28.7 % (37-53) L 08/17/23 08:45 MCV 84.7 fl (82-101) 08/17/23 08:45 MCH 27.1 pg (27-33) 08/17/23 08:45 MCHC 32.1 g/dL (30-55) 08/17/23 08:45 RDW 17.8 % (12.1-15.1) H 08/17/23 08:45 Plt Count 173 10^3/cmm (157-399) 08/17/23 08:45 MPV 10.9 fL (7.4-10.4) H 08/17/23 08:45 Neut % (Auto) 55.3 % 08/17/23 08:45 Lymph % (Auto) 31.9 % 08/17/23 08:45 Guadalupe % (Auto) 12.8 % 08/17/23 08:45 Eos % (Auto) 0.0 % 08/17/23 08:45 Baso % (Auto) 0.0 % 08/17/23 08:45 Neut # (Auto) 0.26 10^3/uL (1.8-7.7) L* 08/17/23 08:45 Lymph # (Auto) 0.2 10^3/uL (0.8-4.8) L 08/17/23 08:45 [place]upe # (Auto) 0.1 10^3/uL (0.2-0.9) L 08/17/23 08:45 Eos # (Auto) 0.0 10^3/uL (0.0-0.8) 08/17/23 08:45 Baso # (Auto) 0.0 10^3/uL (0.0-0.1) 08/17/23 08:45 Nucleated RBC % (auto) 0 % 08/17/23 08:45 Nucleated RBCs # 0.0 /100WBC 08/17/23 08:45 PT 15.10 SECONDS (12.1-14.9) H 08/17/23 08:45 INR 1.16 (0.8-1.2) 08/17/23 08:45 APTT 29.8 SECONDS (23.9-36.7) 08/17/23 08:45 Specimen Type Arterial 08/17/23 08:50 Sample Site Radial, right 08/17/23 08:50 ABG pH 7.49 (7.35-7.45) H 08/17/23 08:50 ABG pCO2 32.1 mmHg (35-45) L 08/17/23 08:50 ABG pO2 65.4 mmHg (80.0-100.0) L 08/17/23 08:50 ABG PO2/FiO2 Ratio 0 08/17/23 08:50 ABG HCO3 24.6 mmol/L (22-26) 08/17/23 08:50 ABG Base Excess 1.7 mmol/L (-2.0-2.0) 08/17/23 08:50 Carlos Test Pos 08/17/23 08:50 Hematocrit 34.8 % (42-52) L 08/17/23 08:50 O2 Delivery Device Nc 08/17/23 08:50 O2 Liters/Min 5.0 % 08/17/23 08:50 FiO2 40.0 % 08/17/23 08:50 Insurance Sales Supervisor ID glc 08/17/23 08:50 Sodium 134 mmol/L (136-145) L 08/17/23 08:45 Potassium 4.1 mmol/L (3.5-5.1) 08/17/23 08:45 Chloride 95 mmol/L (98-107) L 08/17/23 08:45 Carbon Dioxide 22 mmol/L (22-29) 08/17/23 08:45 Anion Gap 21.1 (5-19) H 08/17/23 08:45 BUN 24 mg/dL (8-23) H 08/17/23 08:45 Creatinine 0.9 mg/dL (0.7-1.2) 08/17/23 08:45 GFR Calculation 84.4 mL/min (90-130) L 08/17/23 08:45 Glucose 121 mg/dL (65-115) H 08/17/23 08:45 Calculated Osmolality 283 mOsm/kg (285-295) L 08/17/23 08:45 Lactic Acid 2.4 mmol/L (0.5-2.2) H 08/17/23 08:45 Lactic Acid (Sepsis) 1.7 mmol/L (0.5-2.2) 08/17/23 10:50 Calcium 8.5 mg/dL (8.5-10.5) 08/17/23 08:45 Magnesium 1.7 mg/dL (1.7-2.3) 08/17/23 08:45 Total Bilirubin 3.0 mg/dL (0.15-1.2) H 08/17/23 08:45 AST 41 U/L (0-40) H 08/17/23 08:45 ALT 42 U/L (0-41) H 08/17/23 08:45 Alkaline Phosphatase 913 U/L (40-130) H 08/17/23 08:45 Troponin T Baseline 23 ng/L (0-15) H 08/17/23 08:45 Troponin T 120 Minute 23.46 ng/L (0-15) H 08/17/23 10:50 Delta Troponin T 0.46 ABS# (0-10) 08/17/23 10:50 C-Reactive Protein 234.5 mg/L (0.0-4.9) H 08/17/23 08:45 NT-Pro-B Natriuret Pep 646 pg/mL (0-125) H 08/17/23 08:45 Total Protein 6.5 g/dL (6.6-8.7) L 08/17/23 08:45 Albumin 3.1 g/dL (3.5-5.2) L 08/17/23 08:45 Globulin 3.4 g/dL (1.3-4.6) 08/17/23 08:45 Lipase 12 U/L (13-60) L 08/17/23 08:45 Procalcitonin 28.22 ng/mL (0-0.5) H 08/17/23 10:50 TSH 1.05 uIU/mL (0.27-4.20) 08/17/23 10:50 Discharge Plan Discharge Patient Disposition: Admitted As Inpatient Admit Provider: Binu White Clinical Impression: Pneumonia, Neutropenia, Colon cancer metastasized to liver Condition: Stable Sign Out Sign Out Data: Patient Sign Out occurred on 08/17/23 at 10:51. Patient's care was discussed, and care was transferred from Kameron Conde DO to Daniel Gonsalez DO. 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 Complicated by family history of prostate cancer in father. Normal KATHERIN at first evaluation. PSA ranging from 5-4.6. Recommended initially a conservative approach. Meniere syndrome Chronic migraine without aura, intractable, with status migrainosus Flexion contracture of left knee Surgical History Port-A-Cath in place History of liver biopsy History of shoulder surgery History of tonsillectomy History of colonoscopy with polypectomy History of knee replacement Family History Father , AT AGE 85 Heart attack Mother Arthritis Heart disease Denies family history of Anesthesia complication Bleeding disorder Social History Smoking and tobacco/nicotine status: former use of tobacco/nicotine Quit status (tobacco/nicotine): has quit using Year quit tobacco: 2012 Former quit date comment: smoked 30 years Alcohol intake: never Substance/Drug Use: never Marital status: Current occupational status: retired Course Vital Signs: Vital signs: Vital Signs Temperature 99.3 F 08/17/23 20:00 Pulse Rate 105 H 08/17/23 20:00 Respiratory Rate 28 H 08/17/23 20:00 Blood Pressure 95/57 08/17/23 20:00 Pulse Oximetry 98 08/17/23 20:00 Oxygen Delivery Me thod Nasal Cannula 08/17/23 20:00 Oxygen Flow Rate 8 08/17/23 19:48 MDM - Weakness Medical Decision Making The patient is in mild respiratory distress, with tachypnea. He is hypoxic. He is tachycardic and febrile. Mildly hypotensive. He is receiving a sepsis bolus, vancomycin, Zosyn after blood cultures. Blood gas shows respiratory alkalosis. Other laboratories pending. CT of the chest abdomen pelvis is pending. He will be checked out at shift change. Left lower lobe pneumonia. Extensive mets from his colon CA. Hypotension has improved his hypoxia is improved with 10 L by oxy mask. Will admit for neutropenia pneumonia. Discussed Dr. White admit ICU. Medical Records I reviewed the patient's medical records. Lab Data I reviewed the patient's lab results. 08/17/23 08:45 08/17/23 08:45 Radiology Impressions Chest/Abdomen/Pelvis CT 08/17/23 08:44 IMPRESSION: 1. New consolidation in the right lower lobe. Minimal consolidation in the left lower lobe, not previously imaged. Findings are consistent with aspiration or infection. 2. Incidental findings above. IMPRESSION: 1. No acute intra-abdominal findings. 2. Distal transverse colonic mass with adjacent satellite nodules in the omentum consistent with a malignant neoplasm. 3. Extensive liver metastases. 4. Left upper para-aortic retroperitoneal lymphadenopathy is likely metastatic. 5. Hepatosplenomegaly. Laboratory Results WBC 0.47 10^3/uL (3.29-11.43) L* 08/17/23 08:45 RBC 3.39 10^6/uL (3.85-5.65) L 08/17/23 08:45 Hgb 9.20 g/dL (11.27-16.99) L 08/17/23 08:45 Hct 28.7 % (37-53) L 08/17/23 08:45 MCV 84.7 fl (82-101) 08/17/23 08:45 MCH 27.1 pg (27-33) 08/17/23 08:45 MCHC 32.1 g/dL (30-55) 08/17/23 08:45 RDW 17.8 % (12.1-15.1) H 08/17/23 08:45 Plt Count 173 10^3/cmm (157-399) 08/17/23 08:45 MPV 10.9 fL (7.4-10.4) H 08/17/23 08:45 Neut % (Auto) 55.3 % 08/17/23 08:45 Lymph % (Auto) 31.9 % 08/17/23 08:45 Guadalupe % (Auto) 12.8 % 08/17/23 08:45 Eos % (Auto) 0.0 % 08/17/23 08:45 Baso % (Auto) 0.0 % 08/17/23 08:45 Neut # (Auto) 0.26 10^3/uL (1.8-7.7) L* 08/17/23 08:45 Lymph # (Auto) 0.2 10^3/uL (0.8-4.8) L 08/17/23 08:45 [place] # (Auto) 0.1 10^3/uL (0.2-0.9) L 08/17/23 08:45 Eos # (Auto) 0.0 10^3/uL (0.0-0.8) 08/17/23 08:45 Baso # (Auto) 0.0 10^3/uL (0.0-0.1) 08/17/23 08:45 Nucleated RBC % (auto) 0 % 08/17/23 08:45 Nucleated RBCs # 0.0 /100WBC 08/17/23 08:45 PT 15.10 SECONDS (12.1-14.9) H 08/17/23 08:45 INR 1.16 (0.8-1.2) 08/17/23 08:45 APTT 29.8 SECONDS (23.9-36.7) 08/17/23 08:45 Specimen Type Arterial 08/17/23 08:50 Sample Site Radial, right 08/17/23 08:50 ABG pH 7.49 (7.35-7.45) H 08/17/23 08:50 ABG pCO2 32.1 mmHg (35-45) L 08/17/23 08:50 ABG pO2 65.4 mmHg (80.0-100.0) L 08/17/23 08:50 ABG PO2/FiO2 Ratio 0 08/17/23 08:50 ABG HCO3 24.6 mmol/L (22-26) 08/17/23 08:50 ABG Base Excess 1.7 mmol/L (-2.0-2.0) 08/17/23 08:50 Carlos Test Pos 08/17/23 08:50 Hematocrit 34.8 % (42-52) L 08/17/23 08:50 O2 Delivery Device Nc 08/17/23 08:50 O2 Liters/Min 5.0 % 08/17/23 08:50 FiO2 40.0 % 08/17/23 08:50 Insurance Sales Supervisor ID glc 08/17/23 08:50 Sodium 134 mmol/L (136-145) L 08/17/23 08:45 Potassium 4.1 mmol/L (3.5-5.1) 08/17/23 08:45 Chloride 95 mmol/L (98-107) L 08/17/23 08:45 Carbon Dioxide 22 mmol/L (22-29) 08/17/23 08:45 Anion Gap 21.1 (5-19) H 08/17/23 08:45 BUN 24 mg/dL (8-23) H 08/17/23 08:45 Creatinine 0.9 mg/dL (0.7-1.2) 08/17/23 08:45 GFR Calculation 84.4 mL/min (90-130) L 08/17/23 08:45 Glucose 121 mg/dL (65-115) H 08/17/23 08:45 Calculated Osmolality 283 mOsm/kg (285-295) L 08/17/23 08:45 Lactic Acid 2.4 mmol/L (0.5-2.2) H 08/17/23 08:45 Lactic Acid (Sepsis) 1.7 mmol/L (0.5-2.2) 08/17/23 10:50 Calcium 8.5 mg/dL (8.5-10.5) 08/17/23 08:45 Magnesium 1.7 mg/dL (1.7-2.3) 08/17/23 08:45 Total Bilirubin 3.0 mg/dL (0.15-1.2) H 08/17/23 08:45 AST 41 U/L (0-40) H 08/17/23 08:45 ALT 42 U/L (0-41) H 08/17/23 08:45 Alkaline Phosphatase 913 U/L (40-130) H 08/17/23 08:45 Troponin T Baseline 23 ng/L (0-15) H 08/17/23 08:45 Troponin T 120 Minute 23.46 ng/L (0-15) H 08/17/23 10:50 Delta Troponin T 0.46 ABS# (0-10) 08/17/23 10:50 C-Reactive Protein 234.5 mg/L (0.0-4.9) H 08/17/23 08:45 NT-Pro-B Natriuret Pep 646 pg/mL (0-125) H 08/17/23 08:45 Total Protein 6.5 g/dL (6.6-8.7) L 08/17/23 08:45 Albumin 3.1 g/dL (3.5-5.2) L 08/17/23 08:45 Globulin 3.4 g/dL (1.3-4.6) 08/17/23 08:45 Lipase 12 U/L (13-60) L 08/17/23 08:45 Procalcitonin 28.22 ng/mL (0-0.5) H 08/17/23 10:50 TSH 1.05 uIU/mL (0.27-4.20) 08/17/23 10:50 All radiology interpretation(s) finalized by discharge Discharge Plan Discharge Patient Disposition: Admitted As Inpatient Admit Provider: Binu White Clinical Impression: Pneumonia, Neutropenia, Colon cancer metastasized to liver Condition: Stable Sign Out Sign Out Data: Patient Sign Out occurred on 08/17/23 at 10:51. Patient's care was discussed, and care was transferred from Kameron Conde DO to Daniel Gonsalez DO. 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
[2023-08-17 09:15] LABS: Lactic Sepsis W/Reflex 2.4 mmol/L (0.5-2.2)
[2023-08-17 09:18] LABS: Troponin(5th) Baseline 23 ng/L (0-15)
[2023-08-17 09:23] LABS: Slide Review Slide Review Perform
[2023-08-17 09:24] LABS: Neutrophils # 0.26 10^3/uL (1.8-7.7); White Blood Count 0.47 10^3/uL (3.29-11.43)
[2023-08-17 09:27] LABS: Alanine Aminotransferase 42 U/L (0-41); Albumin Level 3.1 g/dL (3.5-5.2); Alkaline Phosphatase 913 U/L (40-130); Anion Gap 21.1 (5-19); Aspartate Amino Transferase 41 U/L (0-40); Blood Urea Nitrogen 24 mg/dL (8-23); C Reactive Protein 234.5 mg/L (0.0-4.9); Calcium 8.5 mg/dL (8.5-10.5); Carbon Dioxide 22 mmol/L (22-29); Chloride 95 mmol/L (98-107); Globulin 3.4 g/dL (1.3-4.6); Glomerular Filtration Rate 84.4 mL/min (90-130); Glucose 121 mg/dL (65-115); Lipase 12 U/L (13-60); Magnesium 1.7 mg/dL (1.7-2.3); NT Pro B Type Natriuretic Pept 646 pg/mL (0-125); Osmolality Calculated 283 mOsm/kg (285-295); Potassium 4.1 mmol/L (3.5-5.1); Sodium 134 mmol/L (136-145); Total Protein 6.5 g/dL (6.6-8.7)
[2023-08-17] MEDS: ondansetron 2 mg/ML SDV 2 mL 8 MG IVP (09:28)
[2023-08-17] MEDS: piperacillin-tazobactam 4.5 GM in sodium chloride 0.9% (plus) 50 ML IV (09:28)
[2023-08-17] MEDS: sodium chloride 0.9% 1,000 ML 999 ML IV (09:40)
[2023-08-17] MEDS: HYDROmorphone 1 mg/mL INJ 1 mL IVP (09:41)
[2023-08-17] MEDS: iohexol 350 mg/mL 500 mL Btl (per mL) IV (10:09)
[2023-08-17] MEDS: vancomycin 1,250 MG/250 ML PIGGYBACK 250 MG IV (10:20)
--- NOTE | 2023-08-17 10:20 | ECG_ITS ---
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 Measurements Intervals [place] Rate: 109 P: 41 NE: 132 QRS: 18 QRSD: 86 T: 30 QT: 332 QTc: 448 Interpretive Statements SINUS TACHYCARDIA WITH OCCASIONAL ECTOPIC PREMATURE COMPLEXES MODERATE T-WAVE ABNORMALITY, CONSIDER ANTERIOR ISCHEMIA [-0.1+ mV T-WAVE IN V3/V4] Compared to ECG 08/17/2023 08:21:47 No significant changes Electronically Signed On 08-17-2023 21:34:17 CREDIT AUTHORIZER by Vilma Lea M.D. [email or web address]
[2023-08-17 10:39] LABS: Reflex Lactate Order REFLEX LACTIC ORDERD
[2023-08-17 11:16] LABS: Lactic Acid level (Lactate) 1.7 mmol/L (0.5-2.2); Troponin 5 2HR 23.46 ng/L (0-15); Troponin 5 2HR Delta 0.46 ABS# (0-10)
[2023-08-17] MEDS: sodium chloride 0.9% 1,905.09 ML 1000 ML IV (11:41)
[2023-08-17 12:48] LABS: Add Urine Culture? No; Add Urine Microscopic? YES; Bacteria Urine TRACE /hpf; Bilirubin Urine 1+ (Negative); Blood Urine Neg (Negative); Glucose Urine UA Norm (Normal); Ketones Urine Negative (Negative); Leukocyte Esterase Urine Negative (Negative); Nitrate Urine Negative (Negative); Protein Urine Trace (Negative); RBC Urine 0-4 /hpf (0-2); Specific Gravity, Urine 1.005 (1.005-1.030); Squamous Epithelial Cell Urine 0-4 /hpf (0-5); Urine Appearance Clear (CLEAR); Urine Color Yellow (Yellow); Urobilinogen Urine 1 mg/dL (Negative); WBC Urine 0-4 /hpf (0-5); pH Urine 5 (5-7)
--- NOTE | 2023-08-17 13:14 | P.HP_ITS ---
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 Patient has been having fever up to 102 Fahrenheit for last 2 days. He was also in the ER for similar complaints on Friday. In the ER so far he has received sepsis bolus of fluid, IV vancomycin and Zosyn along with pain medications. On examination patient was lying comfortably in bed with family at bedside. He is awake and alert on 10 L oxime mask saturating in low 90s, able to have complete conversation complaining of cough and abdominal pain. He states he has not been urinating like he usually does. Review of Systems 2 General: Reports: 10 or more systems reviewed and unremarkable except in HPI and below Const: Denies: fever(s), chills, body aches, change in appetite, change in weight, malaise, night sweats, diaphoresis, change in sleep pattern, daytime sleepiness or snoring Eyes: Denies: change in vision, blurry vision, photophobia, eye discomfort or eye discharge ENMT: Denies: throat pain, enlarged tonsils, hoarseness, mouth pain, oral sores, dry mouth, tinnitus, nasal congestion or post nasal drip Card: Denies: chest pain, palpitations, irregular heart rhythm, edema, swelling of feet/ankles, lightheadedness, syncope, pre-syncope, dyspnea on exertion, orthopnea, leg pain with exertion or acrocyanosis Resp: Denies: dyspnea, productive cough, non-productive cough, wheezing, stridor, pain on inspiration, change in phlegm color, hemoptysis or chest congestion GI: Denies: abdominal pain, nausea, vomiting, hematemesis, coffee ground emesis, dysphagia, heartburn, diarrhea, constipation, bloating, GI cramping, change in bowel habits, pain on defecation, hematochezia or melena : Denies: flank pain, difficulty urinating, dysuria, urinary frequency, urinary urgency, urinary hesitancy, urinary dribbling, difficulty starting urination, change in urine stream, nocturia or hematuria Musc: Denies: neck pain, back pain, extremity pain, joint pain, joint swelling, joint redness, joint stiffness or limited range of motion Neuro: Denies: headache(s), numbness in extremities, weakness in extremities, sensory changes, lack of coordination, difficulty walking, frequent falls, dizziness, vertigo, confusion, Slurred speech present, difficulty communicating thoughts or seizure-like activity Psych: Denies: anxiety, depression, mood swings, panic attacks, hopelessness or irritability Endo: Denies: polyuria, polydipsia, tired all the time, cold intolerance, excessive sweating, flushing or heat intolerance Ramirez/Lymph: Denies: easy bruising or easy bleeding All/Imm: Denies: tongue swelling, facial swelling or acute wheezing Medications/Allergies Home Medications Medication Instructions Recorded Confirmed Last Taken Type pantoprazole 40 mg tablet,delayed 40 mg PO DAILY #42 tabs 08/25/20 08/17/23 07/31/23 Rx release (Protonix) trazodone 100 mg tablet 150 mg PO BEDTIME 05/24/22 08/17/23 07/30/23 History acetaminophen 650 mg 650 mg PO Q12H PRN pain 07/11/23 08/17/23 07/30/23 History tablet,extended release (Tylenol 8 Hour) sucralfate 100 mg/mL oral 1 g (10 mL) PO BID 8 weeks #1,120 07/11/23 08/17/23 08/01/23 Rx suspension mL hydrocodone 7.5 mg-acetaminophen 1 tab PO Q6H PRN pain 30 days #120 07/28/23 08/17/23 08/16/23 Rx 325 mg tablet tabs meloxicam 7.5 mg tablet 7.5 mg PO DAILY #7 tabs 08/01/23 08/17/23 Unknown Rx lorazepam 1 mg tablet 0.5 - 1 mg (0.5 - 1 x 1 mg) PO Q6H 08/05/23 08/17/23 Unknown Rx PRN Severe Nausea #30 tabs olanzapine 5 mg tablet 5 mg PO QPM Breakthrough Nausea 08/05/23 08/17/23 Unknown Rx and Vomitting #30 tabs prochlorperazine maleate 10 mg 10 mg PO Q4H PRN Mild Nausea #30 08/05/23 08/17/23 Unknown Rx tablet (Compazine) tabs morphine 15 mg immediate release 15 mg PO Q6H PRN Moderate Pain 30 08/15/23 08/17/23 08/16/23 Rx tablet days #120 tabs cefdinir 300 mg capsule 300 mg PO BID 10 days #20 caps 08/16/23 08/17/23 08/16/23 Rx fentanyl 75 mcg/hr transdermal 1 patch transdermal Q72H #5 ea 08/16/23 08/17/23 08/16/23 Rx patch ondansetron 4 mg oral soluble film 4 mg PO DAILY PRN nausea and 08/16/23 08/17/23 08/16/23 Rx vomiting #20 ea ferrous sulfate 325 mg (65 mg 325 mg PO DAILY 08/17/23 08/17/23 Unknown History iron) tablet (Iron (ferrous sulfate)) Allergies Allergy/AdvReac Type Severity Reaction Status Date / Time No Known Allergies Allergy Verified 08/17/23 08:22 PFSH Acute 2 PFSH: Medical History (Updated 08/17/23 @ 16:55 by Binu White MD) Family history of prostate cancer Bilateral chronic knee pain Migraine variant Tendonitis of left rotator cuff Fracture of metacarpal shaft of right hand, closed Degenerative arthritis Secondary malignant neoplasm of liver and intrahepatic bile duct Metastatic high-grade neuroendocrine cancer Elevated prostate specific antigen (PSA) Mildly elevated PSA. Complicated by family history of prostate cancer in father. Normal KATHERIN at first evaluation. PSA ranging from 5-4.6. Recommended initially a conservative approach. Meniere syndrome Chronic migraine without aura, intractable, with status migrainosus Flexion contracture of left knee Surgical History Port-A-Cath in place History of liver biopsy History of shoulder surgery History of tonsillectomy History of colonoscopy with polypectomy History of knee replacement Family History Father , AT AGE 85 Heart attack Mother Arthritis Heart disease Denies family history of Anesthesia complication Bleeding disorder Social History Smoking and tobacco/nicotine status: former use of tobacco/nicotine Quit status (tobacco/nicotine): has quit using Year quit tobacco: 2012 Former quit date comment: smoked 30 years Alcohol intake: never Substance/Drug Use: never Marital status: Current occupational status: retired Vitals/I&O/Wt Last Vital Signs Temp 98.2 F 08/17/23 10:30 Pulse 114 H 08/17/23 09:49 Resp 24 H 08/17/23 09:49 BP 97/63 08/17/23 08:19 Pulse Ox 98 08/17/23 09:49 O2 Del Method Oxymask 08/17/23 09:49 O2 Flow Rate 10 08/17/23 09:49 08/16/23 08/17/23 08/17/23 22:59 06:59 14:59 Intake Total 1300 / 1300 Balance 1300 / 1300 Weight last 48 hrs Weight 63.503 kg Physical Exam 2 Narrative: EXAM NARRATIVE: General: No acute distress, AO x3, oxime mask, chronically sick appearing, dehydrated HEENT: PERRLA, pupils bilaterally equal and reactive Chest: Normal vesicular breath sounds all over lung ibarra with occasional rhonchi and crackles mostly in the right lower zone CVS: S1-S2 regular, no murmurs, no tachycardia, no gallops, no rubs Abdomen: Soft, nontender, no organomegaly, bowel sounds present, morbidly obese Neuro: No focal deficits, no facial deformity, AO x3, power 5/5 in all limbs Data 08/17/23 08:45 08/17/23 08:45 Micro: Microbiology 08/17/23 09:26 Blood Culture - Preliminary Blood SPECIMEN COLLECTED 08/17/23 08:45 Blood Culture - Preliminary Blood SPECIMEN COLLECTED A&P Assessment and plan (1) Septic shock: (2) Pneumonia: (3) Neutropenia: (4) Colon cancer metastasized to liver: (5) Secondary malignant neoplasm of liver and intrahepatic bile duct: (6) Transaminitis: (7) Goals of care, counseling/discussion: Plan 67-year-old gentleman with past medical history of 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 Septic shock: Follow-up blood culture, check urinalysis, urine culture, sputum culture, MRSA swab, respiratory viral panel, procalcitonin, urine Legionella, bacterial antigen. Keep mean artery pressure 65. To finish fluid bolus, followed by normal saline at 75 cc/h. If needed start on Levophed. Matthew catheterization. Neutropenia: Recently received chemotherapy on 08/05. Neutropenic precautions. Will plan for 1 dose of filgrastim. Start on IV vancomycin and Zosyn. Atypical coverage with IV azithromycin. Hypoxia: Keep oxygen saturations over 88%. Switch to high flow for now. Wean accordingly. Start on Solu-Medrol 40 mg every 12 hourly. Pulmicort twice daily, ipratropium and Xopenex every 6 hours. Neuroendocrine tumor of the colon metastatic to liver and intrahepatic duct: Transaminitis and hyperbilirubinemia most likely in setting of metastasis. INR normal. Port in place. Zofran as needed, Protonix daily Patient takes morphine 15 mg every 6 hours as needed, [place] 5 mg every 6 hours as needed for pain medications. For now continue with home dose of morphine, change [place] to Dilaudid 0.4 every 6 hours as needed. Goals of care discussion: Discussed in detail with patient and patient's spouse at bedside. Patient does not want any kind of heroic measures though he is okay with admission to ICU and vasopressors if needed. Does not want intubation or chest compressions. DNR/DNI. Regular diet Protonix for PUD prophylaxis Heparin 5000 every 12 hourly for DVT prophylaxis Attestations 2 Medical Necessity Statement*: Admission for more than 2 midnights for management of severe sepsis in setting of pneumonia, neutropenia in a patient with baseline colon cancer on immunotherapy Critical Care Time: The high probability of a clinically significant, sudden or life threatening deterioration of the patient's [ID, cardiac, GI, pulmonary] system(s) required my full and direct attention, intervention and personal management. The critical care time is as shown. This time is in addition to time spent performing any reported procedures but includes the following: [x] Data and vital sign review and interpretation [x] Patient assessment, examination and intervention [x] Documentation [x] Medication orders and management Coding Level of Care Code Critical Care >/= 30 minutes Critical care time (in minutes): 70 The high probability of a clinically significant, sudden or life threatening deterioration, as referenced in this documentation, required my full and direct attention, intervention and personal management. The critical care time shown is in addition to time spent performing any reported separately billable procedures and includes the following: [x] Data and vital sign review and interpretation [x ] Patient assessment, examination and intervention [x] Medication orders and management [x] Patient/Family updates as able [x] Care Coordination and Documentation. Diagnoses Septic shock A41.9; R65.21 Pneumonia J18.9 Neutropenia D70.9 Colon cancer metastasized to liver C18.9; C78.7 Secondary malignant neoplasm of liver and intrahepatic bile duct C78.7 Transaminitis R74.01 Goals of care, counseling/discussion Z71.89
--- OUTSIDE RECORDS SUMMARY | 2023-08-17 13:20 | XMS_ITS | Patient Health Record ---
Author Name Unknown Organization [facility] Address [address] [place] [address] Care Team Providers Care Wood Setter Name Role Phone KaleighLa Deshpande MD Primary Care Provider Unav ailable Ángel Horton Unavailable [phone] REASON FOR REFERRAL Reason Continuation of PT f or back pain BIW-TIW x 4-6 weeks Diagnosis 1 Lumbar radiculopathy (M54.16) Diagnosis 2 Lumbar spondylosis ( M47.816) Diagnosis 3 Bulging lumbar disc (M51.36) Referral Organization [facility] [place] Referring Provider First Name Ángel Referring Provider Last Name Clifford Referring Provider Speciality Neurosurge ry Referred Provider Specialty 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 rapist Referral Priority Routine Reason Comprehensive lumbar epidural steroid injections suggesting L5-S1 Diagnosis 1 Lumbar radiculopathy (M54.16) Diagnosis 2 Lumbar spondylosis ( M47.816) Diagnosis 3 Bulging lumbar disc (M51.36) Referral Organization [facility] [place] Referring Provider First Name Ángel Referring Provider Last Name Clifford Referring Provider Speciality Neurosurge ry Referred Provider Jameel New Referred Provider Specialty Pain Medicin e Referral Priority Routine Reason low back pain Diagnosis 1 Low back pain (M54.5 0) Referring Provider First Name La Referring Provider Last Name Adrián Referring Provider Speciality Family Med icine Referred Organization [facility] [place] Referred Provider Ángel Horton Referred Address [address],[place],[address], Referred Provider Specialty Neurosurgery Referral Priority Routine [...] W/U Status Risk SNOMED Code Notes Problem Bulging lumbar disc (M51.36) Active confirmed 965207498 Problem Lumbar spondylosis (M47.816) Active confirmed [id number] VITAL SIGNS Heart Rate 84 /min 05/20/2023 Temperature 98.0 degrees Fahrenheit 05/20/2023 Respiratory Rate 20 /min 05/20/2023 Height-cm 172.72 cm 05/20/2023 Oximetry 95 % 05/20/2023 Blood pressure diastolic 68 mm Hg 05/20/2023 Weight-kg 72.57 kg 05/20/2023 Height 68 in 05/20/2023 Blood pressure systolic 118 mm Hg 05/20/2023 Weight 160 lbs 05/20/2023 BMI 24.33 kg/m2 05/20/2023 Encounters Encounter Location Date Provider Diagnosis [facility] [place] [address] [place] [address] 03/27/2023 Ángel Horton Lumbar radiculopathy M54.16 ; Lumbar spondylosis M47.816 and Bulging lumbar disc M51.36 [facility] [place] [address] [place] [address] 04/15/2023 Ángel Horton [facility] [place] [address] [place] [address] 04/22/2023 Ángel Horton [facility] [place] [address] [place] [address] 05/20/2023 Ángel Horton Lumbar spondylosis M47.816 and Lumbar stenosis M48.061 [facility] [address] [place] [address] 09/17/2022 Ángelwendie Orozcoley Lumbar radiculopathy M54.16 ; Lumbar spondylosis M47.816 and Bulging lumbar disc M51.36 [facility] [place] [address] [facility] [place] [address] 02/18/2023 Ángelwendie Orozcoley [facility] [place] [address] [facility] [place] [address] 03/25/2023 Ángel Clifford Lumbar spondylosis M47.816 and [...] a referral to the pain clinic in [place] for a lumbar epidural steroid injection suggesting [...] Name Order Date MRI Lumbar Spine w/o [id number] 03/25/20 MRI Lumbar Spine w/o [id number] 03/27/20 Insurance Providers Payer Name Payer Address Payer Phone Subscriber Number Group Number Insured Name Patient Relationship to Insured Coverage Start Date Coverage End Date [employer] [address] [place] [phone] [id number] Brian Rothman Self - patient is the insured MEDICAL (GENERAL) HISTORY Medical History History ICD Code Measles Mumps Arthritis GERD Surgical History Surgery Date(Month/Year) Screws Low Left Femur 03/11/83 Left Knee Replacement 10/25/2013 Left Shoulder and Collar Bone 10/30/19
[2023-08-17] MEDS: morphine IR 15 mg Tablet PO ×2 (13:26→17:34)
[2023-08-17] MEDS: HYDROmorphone 1 mg/mL INJ 1 mL 0.4 MG IVP ×2 (13:27→20:39)
[2023-08-17 13:57] LABS: Procalcitonin 28.22 ng/mL (0-0.5); Thyroid Stimulating Hormone 1.05 uIU/mL (0.27-4.20)
[2023-08-17 13:58] LABS: Coronavirus 229E,HKU1,NL63,OC4 Not Detected (NOT DETECT); SARS-COV-2 Not Detected (NOT DETECT)
[2023-08-17] MEDS: sodium chloride 0.9% 1,000 ML 75 ML IV (14:10)
--- NOTE | 2023-08-17 14:46 | PC.NURSE ---
received from er via stretcher at 1410.report received.pt is alert and awake and oriented x 4.denies pain at present.spouse at bedside.oriented to room environment.instructed to notify staff for any sob,cp,diaphoresis or for any concerns at all.pt verb understanding of instructions
[2023-08-17] MEDS: ipratropium 0.5 mg/2.5 mL Neb INHALATION ×2 (15:00→19:48)
[2023-08-17] MEDS: levalbuterol 0.63 mg/3 mL Neb INHALATION ×2 (15:00→19:48)
--- NOTE | 2023-08-17 15:37 | ECG_ITS ---
[facility] Test Date: 2023-08-17 Pat Name: Brian Rothman Department: Room: 107 Gender: Male Bucket Turner: : 1955 Requested By: Kameron Rees Order Number: [id number] Louise MD: Vilma Lea M.D. Measurements Intervals [place] Rate: 108 P: 47 LA: 155 QRS: 17 QRSD: 87 T: 43 QT: 325 QTc: 437 Interpretive Statements SINUS TACHYCARDIA ABNORMAL RHYTHM ECG Compared to ECG 08/17/2023 10:20:57 T-wave abnormality no longer present Possible ischemia no longer present Electronically Signed On 08-17-2023 21:33:27 ACID POLYMERIZATION OPERATOR by Vilma Lea M.D. [id number]
[2023-08-17] MEDS: piperacillin-tazobactam 3.375 GM in sodium chloride 0.9% (plus) 50 ML IV (17:11)
--- NOTE | 2023-08-17 17:27 | PC.NURSE ---
pt's bp has been on low side since admission.manual bp at this time = 106/50 (right arm) and monitor bp reading 107/67 at this time.levophed had been ordered but now on hold due to improved bp.pt incontinent of urine.cooper catheter ordered for accurate urine output....pt refused.also refused for 2nd iv (peripheral) to be inserted.also asked for a different nurse .stated arlyn loves you but you can hear worth a damn .report given to lele who will assume care.dr brooks notified of events.
[2023-08-17] MEDS: heparin 5,000 unit/mL INJ 1 mL 5000 UNIT SUBCUT (17:30)
[2023-08-17] MEDS: sucralfate 1 gm/10 mL Oral Liq UDC PO (17:32)
[2023-08-17] MEDS: OLANZapine 5 mg TABLET PO (17:33)
--- NOTE | 2023-08-17 17:39 | PC.NURSE ---
refused cooper catheter. aware.
[2023-08-17] MEDS: methylPREDNISolone sod succ 40 mg/mL INJ IVP (17:44)
[2023-08-17 19:57] LABS: Adenovirus Not Detected (NOT DETECT); Chlamydia Pneumoniae Not Detected (NOT DETECT); Human Metapneumovirus Not Detected (NOT DETECT); Human Rhinovirus/Enterovirus Not Detected (NOT DETECT); Influenza A Not Detected (NOT DETECT); Influenza A H1 Not Detected (NOT DETECT); Influenza A H1-2009 Not Detected (NOT DETECT); Influenza A H3 Not Detected (NOT DETECT); Influenza B Not Detected (NOT DETECT); Mycoplasma Pneumoniae Not Detected (NOT DETECT); Parainfluenza Virus Type 1 Not Detected (NOT DETECT); Parainfluenza Virus Type 2 Not Detected (NOT DETECT); Parainfluenza Virus Type 3 Not Detected (NOT DETECT); Parainfluenza Virus Type 4 Not Detected (NOT DETECT); Respiratory Syncytial Virus A Not Detected (NOT DETECT); Respiratory Syncytial Virus B Not Detected (NOT DETECT)
[2023-08-17] MEDS: ALPRAZolam 0.5 mg Tablet PO (20:51)
[2023-08-17] MEDS: vancomycin 1,000 MG in sodium chloride 0.9% 250 ML 250 MG IV (21:58)
[2023-08-18] VITALS (91 sets, daily range): BP systolic 86–110; BP diastolic 52–64; PULSE 68–114; RESP 14–36; TEMP 35.7–36.8; O2SAT 84–100; BMI 19.2
[2023-08-18] MEDS: methylPREDNISolone sod succ 40 mg/mL INJ IVP ×3 (01:12→17:11)
[2023-08-18] MEDS: piperacillin-tazobactam 3.375 GM in sodium chloride 0.9% (plus) 50 ML IV ×3 (01:12→20:38)
[2023-08-18] MEDS: sodium chloride 0.9% 1,000 ML 75 ML IV (02:23)
[2023-08-18] MEDS: levalbuterol 0.63 mg/3 mL Neb INHALATION ×4 (02:40→19:03)
[2023-08-18] MEDS: ipratropium 0.5 mg/2.5 mL Neb INHALATION ×4 (02:40→19:03)
[2023-08-18] MEDS: heparin 5,000 unit/mL INJ 1 mL 5000 UNIT SUBCUT ×2 (05:22→17:11)
[2023-08-18] MEDS: morphine IR 15 mg Tablet PO (05:22)
[2023-08-18 05:56] LABS: Hematocrit 22.3 % (37-53); Lymphocytes # 0.3 10^3/uL (0.8-4.8); Lymphocytes % 46.8 %; Mean Corpuscular HGB Conc 31.8 g/dL (30-55); Mean Corpuscular Hemoglobin 27.3 pg (27-33); Mean Corpuscular Volume 85.8 fl (82-101); Mean Platelet Volume 10.5 fL (7.4-10.4); Monocytes # 0.1 10^3/uL (0.2-0.9); Neutrophils % 32.2 %; Nucleated Red Blood Cells % 0 %; Platelet Count 178 10^3/cmm (157-399); Red Cell Distribution Width 18.2 % (12.1-15.1)
[2023-08-18 06:12] LABS: Alanine Aminotransferase 30 U/L (0-41); Albumin Level 2.6 g/dL (3.5-5.2); Alkaline Phosphatase 582 U/L (40-130); Anion Gap 17.7 (5-19); Aspartate Amino Transferase 28 U/L (0-40); Blood Urea Nitrogen 16 mg/dL (8-23); Calcium 7.6 mg/dL (8.5-10.5); Carbon Dioxide 20 mmol/L (22-29); Chloride 101 mmol/L (98-107); Glomerular Filtration Rate 96.7 mL/min (90-130); Glucose 109 mg/dL (65-115); Magnesium 1.9 mg/dL (1.7-2.3); Osmolality Calculated 282 mOsm/kg (285-295); Phosphorus 3.1 mg/dL (2.5-4.5); Potassium 3.7 mmol/L (3.5-5.1); Sodium 135 mmol/L (136-145); Total Bilirubin 3.3 mg/dL (0.15-1.2); Total Protein 5.6 g/dL (6.6-8.7)
[2023-08-18 06:18] LABS: Estmated Average Glucose 108; Hemoglobin A1C 5.4 % (4.0-6.0)
[2023-08-18 06:33] LABS: Folate Level 4.1 ng/mL (4.5-32.2)
[2023-08-18 06:47] LABS: Slide Review Slide Review Perform
[2023-08-18 06:48] LABS: White Blood Count 0.62 10^3/uL (3.29-11.43)
[2023-08-18] MEDS: sucralfate 1 gm/10 mL Oral Liq UDC PO ×2 (09:03→17:11)
[2023-08-18] MEDS: pantoprazole DR 40 mg Tablet PO (09:03)
[2023-08-18] MEDS: azithromycin 500 MG in sodium chloride 0.9% 250 ML 250 MG IV (09:04)
[2023-08-18] MEDS: HYDROmorphone 1 mg/mL INJ 1 mL 0.4 MG IVP (09:23)
--- NOTE | 2023-08-18 10:30 | PC.NURSE ---
Patient had pressed call kaplan to request assistance, this nurse was told that patient had requested to speak with me. Nurse went into patients room and patient was found laying on the floor beside the door. Patient had attempted to get up by himself and reported he slipped on his sweatpants and fell. Patient did not hit his head during this fall, patient does have small scratch on the right lateral side of his thoracic region. Patient reports no pain. Patient was assisted to the commode and then back to bed. Nurse educated patient on the importance of not getting up with out nursing staff in the room. Bed alarm has been set. Physician notified.
[2023-08-18] MEDS: vancomycin 1,000 MG in sodium chloride 0.9% 250 ML 250 MG IV ×2 (11:09→21:23)
[2023-08-18] MEDS: magnesium hydroxide 30 mL UDC PO (13:28)
[2023-08-18] MEDS: OLANZapine 5 mg TABLET PO (17:11)
[2023-08-18] MEDS: budesonide 0.5 mg/2 mL Neb INHALATION (19:03)
--- NOTE | 2023-08-18 21:13 | P.PN_ITS ---
Subjective 2 Subjective: This morning sustained a fall, slid down by the side of the bed with mild scratch on his back. Transient confusion after receiving Dilaudid. Vitals/I&O/Wt Last Vital Signs Temp 98.2 F 08/18/23 08:00 Pulse 82 08/18/23 20:55 Resp 19 H 08/18/23 20:55 BP 101/59 08/18/23 20:55 Pulse Ox 97 08/18/23 20:55 O2 Del Method High Flow Nasal Cannula 08/18/23 19:03 O2 Flow Rate 2 08/18/23 19:03 08/18/23 08/18/23 08/18/23 06:59 14:59 22:59 Intake Total 1216.25 / 4471.34 1443.75 / 1443.75 360 / 1803.75 Output Total 325 / 750 Balance 891.25 / 3721.34 1443.75 / 1443.75 360 / 1803.75 Weight last 48 hrs Weight 64.41 kg Weight 64.41 kg Weight 67.132 kg Weight 63.503 kg Physical Exam 2 Const: COMMON NORMALS: patient oriented x3 and alert GENERAL APPEARANCE: c ooperative ORIENTATION/CONSCIOUSNESS: Yes awake HENMT: COMMON NORMALS: oropharynx normal Neck/C-Spine: COMMON NORMALS: no JVD Resp: COMMON NORMALS: normal respiratory effort and clear to auscultation bilaterally AUSCULTATION: clear to auscultation bilaterally Cardio: COMMON NORMALS: no JVD, regular rhythm, S1 normal heart sound present, S2 normal heart sound present and No murmurs present (Cardio) RHYTHM: regular rhythm HEART SOUNDS: S1 normal heart sound present and S2 normal heart sound present GI: COMMON NORMALS: Normal to inspection, nondistended, normoactive bowel sounds present and Soft to palpation PALPATION: Yes Soft to palpation O THER: Tender RUQ Back/Pelvis: OTHER: Thin superficial scratch on left-flank/back. Extremity: COMMON NORMALS: no joint enlargement and no pedal edema Neuro: COMMON NORMALS: patient oriented x3 and moves all extremities S ENSORIUM/ORIENTATION: Yes alert Skin: COMMON NORMALS: no rashes or lesions noted GENERAL SKIN EXAM: no rashes or lesions noted Data 08/18/23 05:24 08/18/23 05:24 Micro: Microbiology 08/17/23 09:26 Blood Culture - Preliminary Blood NEGATIVE TO DATE 08/17/23 08:45 Blood Culture - Preliminary Blood NEGATIVE TO DATE 08/17/23 12:17 Bacterial Antigens - Final Urine Kidney 08/17/23 12:17 Legionella Urinary Antigen - Final Unknown Source A&P Assessment and plan (1) Septic shock: (2) Pneumonia: (3) Neutropenia: (4) Colon cancer metastasized to liver: (5) Secondary malignant neoplasm of liver and intrahepatic bile duct: (6) Transaminitis: (7) Goals of care, counseling/discussion: Plan 67-year-old gentleman with past medical history of 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 Septic shock: Blood pressure this morning on the soft, however, measured with a very large blood pressure cuff, this was changed for a more appropriate cuff, soft but maintaining in low 100s systolic. Reviewed blood culture, negative. Reviewed urine bacterial antigens, negative. Empiric antibiotics. CMP reviewed, discussed with him noted worsening T. bili up to 3.3, alk phos 582. Follow-up cultures. Neutropenia: Reviewed CBC, absolute neutrophils noted 200. Added neutropenic precautions. Recently received chemotherapy on 08/05. Follow-up CBC requested. Continue IV vancomycin and Zosyn. Atypical coverage with IV azithromycin. Hypoxia: Keep oxygen saturations over 88%. Continue nasal cannula. Decrease Solu-Medrol to 20 mg every 8 hours. Pulmicort twice daily, ipratropium and Xopenex every 6 hours. Neuroendocrine tumor of the colon metastatic to liver and intrahepatic duct: Transaminitis and hyperbilirubinemia most likely in setting of metastasis. INR normal. Port in place. Zofran as needed, Protonix daily Patient takes morphine 15 mg every 6 hours as needed, [place] 5 mg every 6 hours as needed for pain medications. For now continue with home dose of morphine. Transient confusion with Dilaudid, discontinued. Restart [place] PRN. Goals of care discussion: Discussed in detail with patient and patient's spouse at bedside. He tells me he understands his overall prognosis not good, at this time he is okay with continue with medical treatments, he will let us know in case treatments are getting too much for him and he prefers to switch to hospice/comfort measures. Does not want intubation or chest compressions. DNR/DNI. Regular diet Protonix for PUD prophylaxis Heparin 5000 every 12 hourly for DVT prophylaxis Attestations 2 Medical Necessity Statement*: Continue admission for assessment management of neutropenia, worsening cholestasis, metastatic neuroendocrine colon tumor Diagnoses Septic shock A41.9; R65.21 Pneumonia J18.9 Neutropenia D70.9 Colon cancer metastasized to liver C18.9; C78.7 Secondary malignant neoplasm of liver and intrahepatic bile duct C78.7 Transaminitis R74.01 Goals of care, counseling/discussion Z71.89
[2023-08-18] MEDS: trazodone 150 mg Tablet PO (21:23)
[2023-08-19] VITALS (114 sets, daily range): BP systolic 91–115; BP diastolic 52–79; PULSE 50–124; RESP 3–32; TEMP 36.4–36.8; O2SAT 94–100; BMI 19.1
[2023-08-19] MEDS: methylPREDNISolone sod succ 40 mg/mL INJ 20 MG IVP ×3 (01:26→17:21)
[2023-08-19] MEDS: levalbuterol 0.63 mg/3 mL Neb INHALATION ×4 (01:55→21:05)
[2023-08-19] MEDS: ipratropium 0.5 mg/2.5 mL Neb INHALATION ×4 (01:55→21:05)
[2023-08-19] MEDS: piperacillin-tazobactam 3.375 GM in sodium chloride 0.9% (plus) 50 ML IV ×3 (04:16→19:49)
[2023-08-19] MEDS: heparin 5,000 unit/mL INJ 1 mL 5000 UNIT SUBCUT ×2 (05:36→17:18)
[2023-08-19 05:39] LABS: Basophils % 0.6 %; Hematocrit 21.4 % (37-53); Lymphocytes # 0.3 10^3/uL (0.8-4.8); Lymphocytes % 19.2 %; Mean Corpuscular HGB Conc 31.8 g/dL (30-55); Mean Corpuscular Hemoglobin 27.2 pg (27-33); Mean Corpuscular Volume 85.6 fl (82-101); Monocytes # 0.3 10^3/uL (0.2-0.9); Neutrophils % 64.2 %; Nucleated Red Blood Cells % 0 %; Platelet Count 204 10^3/cmm (157-399); Red Cell Distribution Width 18.3 % (12.1-15.1); White Blood Count 1.56 10^3/uL (3.29-11.43)
[2023-08-19 05:59] LABS: Alanine Aminotransferase 29 U/L (0-41); Albumin Level 2.5 g/dL (3.5-5.2); Alkaline Phosphatase 493 U/L (40-130); Anion Gap 15.2 (5-19); Aspartate Amino Transferase 30 U/L (0-40); Blood Urea Nitrogen 22 mg/dL (8-23); Calcium 8.2 mg/dL (8.5-10.5); Carbon Dioxide 24 mmol/L (22-29); Chloride 103 mmol/L (98-107); Globulin 2.8 g/dL (1.3-4.6); Glomerular Filtration Rate 112.8 mL/min (90-130); Glucose 118 mg/dL (65-115); Osmolality Calculated 292 mOsm/kg (285-295); Potassium 3.2 mmol/L (3.5-5.1); Sodium 139 mmol/L (136-145); Total Bilirubin 1.7 mg/dL (0.15-1.2); Total Protein 5.3 g/dL (6.6-8.7)
[2023-08-19 06:04] LABS: Slide Review Slide Review Perform
[2023-08-19] MEDS: HYDROcodone-acetaminophen 7.5-325 mg Tablet 1 TAB PO ×3 (06:37→19:49)
[2023-08-19] MEDS: sucralfate 1 gm/10 mL Oral Liq UDC PO ×2 (09:28→17:18)
[2023-08-19] MEDS: pantoprazole DR 40 mg Tablet PO (09:28)
[2023-08-19] MEDS: albumin 25 G/100 ML BAG 60 G IV (09:29)
[2023-08-19] MEDS: azithromycin 500 MG in sodium chloride 0.9% 250 ML 250 MG IV (09:30)
[2023-08-19] MEDS: morphine IR 15 mg Tablet PO ×2 (11:04→17:20)
[2023-08-19] MEDS: vancomycin 1,000 MG in sodium chloride 0.9% 250 ML 250 MG IV ×2 (11:05→23:16)
[2023-08-19 13:59] LABS: Methicillin-Resist S.aureu PCR NOT DETECTED (NOT DETECTED)
[2023-08-19] MEDS: OLANZapine 5 mg TABLET PO (17:20)
--- NOTE | 2023-08-19 21:46 | P.PN_ITS ---
Subjective 2 Subjective: Today he is feeling slightly better. Still having pain in right upper quadrant. Did not note outward bleeding. Vitals/I&O/Wt Last Vital Signs Temp 97.7 F 08/19/23 19:55 Pulse 56 L 08/19/23 21:07 Resp 18 08/19/23 21:07 BP 115/66 08/19/23 19:55 Pulse Ox 98 08/19/23 21:07 O2 Del Method Nasal Cannula 08/19/23 21:07 O2 Flow Rate 2 08/19/23 21:07 08/19/23 08/19/23 08/19/23 06:59 14:59 22:59 Intake Total 300 / 2103.75 770 / 770 1260 / 2030 Balance 300 / 2103.75 770 / 770 1260 / 2030 Weight last 48 hrs Weight 64.098 kg Weight 64.098 kg Weight 64.41 kg Weight 64.41 kg Physical Exam 2 Narrative: Accompanied by family. Const: COMMON NORMALS: patient oriented x3 and alert GENERAL APPEARANCE: c ooperative ORIENTATION/CONSCIOUSNESS: Yes awake HENMT: COMMON NORMALS: oropharynx normal Neck/C-Spine: COMMON NORMALS: no JVD Resp: COMMON NORMALS: normal respiratory effort and clear to auscultation bilaterally AUSCULTATION: clear to auscultation bilaterally Cardio: COMMON NORMALS: no JVD, regular rhythm, S1 normal heart sound present, S2 normal heart sound present and No murmurs present (Cardio) RHYTHM: regular rhythm HEART SOUNDS: S1 normal heart sound present and S2 normal heart sound present GI: COMMON NORMALS: Normal to inspection, nondistended, normoactive bowel sounds present and Soft to palpation PALPATION: Yes Soft to palpation O THER: Tender RUQ Back/Pelvis: OTHER: Thin superficial scratch on left-flank/back. Extremity: COMMON NORMALS: no joint enlargement and no pedal edema Neuro: COMMON NORMALS: patient oriented x3 and moves all extremities S ENSORIUM/ORIENTATION: Yes alert Skin: COMMON NORMALS: no rashes or lesions noted GENERAL SKIN EXAM: no rashes or lesions noted Data 08/19/23 04:45 08/19/23 04:45 A&P Assessment and plan (1) Septic shock: (2) Pneumonia: (3) Neutropenia: (4) Colon cancer metastasized to liver: (5) Secondary malignant neoplasm of liver and intrahepatic bile duct: (6) Transaminitis: (7) Goals of care, counseling/discussion: Plan 67-year-old gentleman with past medical history of 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 Septic shock: Blood pressure is doing better. Shock so far resolved. He appears to be improving. Noted improvement in leukopenia/neutropenia. Reviewed chemistry, transaminitis improving. Continue Empiric antibiotics. Reviewed blood culture, noted negative so far. CMP reviewed, discussed with him noted worsening T. bili up to 3.3, alk phos 582. Follow-up cultures. Stop IV fluid. Decrease Solu-Medrol to 10 mg. Neutropenia: Reviewed CBC, absolute neutrophils noted improved up to 1000. For now continue neutropenic precautions. Recently received chemotherapy on 08/05. Follow-up CBC requested. Continue IV vancomycin and Zosyn. Atypical coverage with IV azithromycin. Hypoxia: Keep oxygen saturations over 88%. Continue nasal cannula. Cut down Solu-Medrol to 10 mg. Pulmicort twice daily, ipratropium and Xopenex every 6 hours. Neuroendocrine tumor of the colon metastatic to liver and intrahepatic duct: Transaminitis and hyperbilirubinemia most likely in setting of metastasis. INR normal. Port in place. Zofran as needed, Protonix daily Patient takes morphine 15 mg every 6 hours as needed, [place] 5 mg every 6 hours as needed for pain medications. For now continue with home dose of morphine. Transient confusion with Dilaudid, discontinued. Restart [place] PRN. Goals of care discussion: Continue medical management at this time. He will let us know in case of additional changes in goals of care. DNR/DNI. Regular diet Protonix for PUD prophylaxis Heparin 5000 every 12 hourly for DVT prophylaxis Attestations 2 Medical Necessity Statement*: Continue admission for assessment management of pneumonia in the setting of neutropenia, worsening cholestasis, with metastatic neuroendocrine colon tumor. and High MDM includes amount and/or complexity of data reviewed/ordered [ resulted lab(s)/test(s), ordered lab(s)/test(s) and other healthcare professional discussion] as documented Diagnoses Septic shock A41.9; R65.21 Pneumonia J18.9 Neutropenia D70.9 Colon cancer metastasized to liver C18.9; C78.7 Secondary malignant neoplasm of liver and intrahepatic bile duct C78.7 Transaminitis R74.01 Goals of care, counseling/discussion Z71.58
[2023-08-19 22:22] LABS: Vancomycin Trough 18.1 ug/mL (10-15)
[2023-08-20] VITALS (12 sets, daily range): BP systolic 102–118; BP diastolic 61–72; PULSE 48–82; RESP 16–25; TEMP 36.3–36.7; O2SAT 92–98; BMI 19.1
[2023-08-20] MEDS: methylPREDNISolone sod succ 40 mg/mL INJ 10 MG IVP ×2 (00:33→08:14)
[2023-08-20] MEDS: morphine IR 15 mg Tablet PO ×3 (00:35→14:21)
[2023-08-20] MEDS: ipratropium 0.5 mg/2.5 mL Neb INHALATION ×2 (02:49→08:22)
[2023-08-20] MEDS: levalbuterol 0.63 mg/3 mL Neb INHALATION ×2 (02:49→08:22)
[2023-08-20 03:32] LABS: Hematocrit 23.4 % (37-53); Mean Corpuscular HGB Conc 31.6 g/dL (30-55); Mean Corpuscular Hemoglobin 27.3 pg (27-33); Mean Corpuscular Volume 86.3 fl (82-101); Mean Platelet Volume 12.2 fL (7.4-10.4); Platelet Count 251 10^3/cmm (157-399); Red Blood Count 2.71 10^6/uL (3.85-5.65); Red Cell Distribution Width 18.5 % (12.1-15.1); White Blood Count 3.76 10^3/uL (3.29-11.43)
[2023-08-20 03:53] LABS: Alanine Aminotransferase 35 U/L (0-41); Albumin Level 2.6 g/dL (3.5-5.2); Alkaline Phosphatase 523 U/L (40-130); Anion Gap 15.3 (5-19); Aspartate Amino Transferase 38 U/L (0-40); Blood Urea Nitrogen 37 mg/dL (8-23); Calcium 8.1 mg/dL (8.5-10.5); Carbon Dioxide 24 mmol/L (22-29); Chloride 104 mmol/L (98-107); Globulin 2.5 g/dL (1.3-4.6); Glomerular Filtration Rate 96.7 mL/min (90-130); Glucose 120 mg/dL (65-115); Osmolality Calculated 300 mOsm/kg (285-295); Potassium 3.3 mmol/L (3.5-5.1); Sodium 140 mmol/L (136-145); Total Bilirubin 1.4 mg/dL (0.15-1.2); Total Protein 5.1 g/dL (6.6-8.7)
[2023-08-20 04:04] LABS: Slide Review Slide Review Perform
[2023-08-20 04:05] LABS: Absolute Segmented Neutrophil 2.4 10/cmm (1.6-7.1); Eosinophils 0 %; Giant Platelets Trace; Lymphocytes 16 %; Monocytes Absolute 0.5 10^3/cmm (0.1-0.6); Platelet Estimate Normal (Normal); Segmented Neutrophils 64 %; Total Cells Counted 100 (0-100)
[2023-08-20] MEDS: HYDROcodone-acetaminophen 7.5-325 mg Tablet 1 TAB PO ×2 (04:40→10:56)
[2023-08-20] MEDS: heparin 5,000 unit/mL INJ 1 mL 5000 UNIT SUBCUT (04:41)
[2023-08-20] MEDS: piperacillin-tazobactam 3.375 GM in sodium chloride 0.9% (plus) 50 ML IV ×2 (04:41→12:34)
[2023-08-20] MEDS: sucralfate 1 gm/10 mL Oral Liq UDC PO (08:13)
[2023-08-20] MEDS: magnesium hydroxide 30 mL UDC PO (08:17)
[2023-08-20] MEDS: pantoprazole DR 40 mg Tablet PO (08:19)
[2023-08-20] MEDS: azithromycin 500 MG in sodium chloride 0.9% 250 ML 250 MG IV (08:19)
--- NOTE | 2023-08-20 09:10 | PC.SOCIAL ---
Pg 2 IMM Explained to pt Pg 2 IMM. No questions voiced. Provided pt a copy. Initialed, dated, & timed a copy & placed in chart.
[2023-08-20] MEDS: vancomycin 1,000 MG in sodium chloride 0.9% 250 ML 250 MG IV (10:58)
[2023-08-20] MEDS: potassium chloride ER 20 mEq Tablet PO (12:34)
--- NOTE | 2023-08-20 14:08 | PM.DCS ---
Discharge Providers Date of Admission: 08/17/23 11:28 Date of Discharge: August 20, 2023 Attending Provider at Admission: Binu White MD Attending Provider at Discharge: Jonathan Khalil Primary Care Provider: Jameel Lopez DO Diagnoses at Discharge Discharge Diagnosis (1) Septic shock: Status: Acute (2) Pneumonia: Status: Acute (3) Neutropenia: Status: Acute (4) Colon cancer metastasized to liver: Status: Acute (5) Secondary malignant neoplasm of liver and intrahepatic bile duct: Status: Acute Permanent problem details: Metastatic high-grade neuroendocrine cancer (6) Transaminitis: Status: Acute (7) Goals of care, counseling/discussion: Status: Acute Reason for Visit Reason for Visit: WEAKNESS Hospital Course Hospital Course Very pleasant 67-year-old gentleman with metastatic neuroendocrine tumor of colon with metastatic cyst to liver and intrahepatic ducts was admitted after presenting with neutropenia, pneumonia, respiratory failure requiring 10 L of oxygen by oxime mask. Treated with broad-spectrum antibiotics with Zosyn, vancomycin, azithromycin for atypical coverage. Received IV steroids, breathing treatments, continue to gradually improve. Blood pressure transiently low with pressors considered, however, gradually improved. Weaning down on steroids. Oxygenation improved with treatment, coming down to requiring only 2 L by nasal cannula and with continuing improvement not requiring oxygen at discharge on home O2 evaluation. He will complete course with Levaquin, also with Flagyl. During hospitalization with noted cholestasis, although possibility of early hepatobiliary infection not entirely excluded, but this has been improving, with right upper quadrant pain being chronic, but with improving bilirubin down to 1.4, alk phos. Please follow-up liver parameters. Follow-up will continue to prevent from pneumonia. Subjectively he is feeling much better, ready for discharge, knows to seek medical attention in case of worsening condition. He also understands that his overall prognosis is not good and he is at high risk of complications and mortality secondary to metastatic disease, for now he has been agreeable to continue with medical treatments. He will let us know in case his wishes change for transition to more comfort based approach. He has follow-up appointment with oncology tomorrow morning. Arrangements are being made through [place] for home health services. Physical Exam Narrative: Awake, alert, dressed in home clothes. Sitting up in bed. Reports she is feeling much better. Ready to return home. Const: COMMON NORMALS: patient oriented x3 and alert GENERAL APPEARANCE: cooperative ORIENTATION/CONSCIOUSNESS: Yes awake HENMT: COMMON NORMALS: oropharynx normal Neck/C-Spine: COMMON NORMALS: no JVD Resp: COMMON NORMALS: normal respiratory effort and clear to auscultation bilaterally AUSCULTATION: clear to auscultation bilaterally Cardio: COMMON NORMALS: no JVD, regular rhythm, S1 normal heart sound present, S2 normal heart sound present and No murmurs present (Cardio) RHYTHM: regular rhythm HEART SOUNDS: S1 normal heart sound present and S2 normal heart sound present GI: COMMON NORMALS: Normal to inspection, nondistended, normoactive bowel sounds present and Soft to palpation PALPATION: Yes Soft to palpation OTHER: Tender RUQ Back/Pelvis: OTHER: Thin superficial scratch on left-flank/back. Extremity: COMMON NORMALS: no joint enlargement and no pedal edema Neuro: COMMON NORMALS: patient oriented x3 and moves all extremities SENSORIUM/ORIENTATION: Yes alert Skin: COMMON NORMALS: no rashes or lesions noted GENERAL SKIN EXAM: no rashes or lesions noted Discharge Data Studies Completed and Pending Completed Studies During Hospitalization Category Date Time Status CT chest abdomen pelvis [CT chest abdpel w/*[id number] Cat Scan 08/17/23 08:44 Completed ] Stat Pending at discharge Category Date Time Status Blood Culture Stat Lab 08/17/23 09:26 Results Complete Blood Count w/Auto AM LABS Lab 08/21/23 04:00 Ordered Comprehensive Metabolic Panel AM LABS Lab 08/21/23 04:00 Ordered Sputum Culture and Gram Stain Stat Lab 08/17/23 16:51 Uncollected Radiology Impressions Chest/Abdomen/Pelvis CT 08/17/23 08:44 IMPRESSION: 1. New consolidation in the right lower lobe. Minimal consolidation in the left lower lobe, not previously imaged. Findings are consistent with aspiration or infection. 2. Incidental findings above. IMPRESSION: 1. No acute intra-abdominal findings. 2. Distal transverse colonic mass with adjacent satellite nodules in the omentum consistent with a malignant neoplasm. 3. Extensive liver metastases. 4. Left upper para-aortic retroperitoneal lymphadenopathy is likely metastatic. 5. Hepatosplenomegaly. Laboratory Results WBC 3.76 10^3/uL (3.29-11.43) 08/20/23 03:11 RBC 2.71 10^6/uL (3.85-5.65) L 08/20/23 03:11 Hgb 7.40 g/dL (11.27-16.99) L 08/20/23 03:11 Hct 23.4 % (37-53) L 08/20/23 03:11 MCV 86.3 fl (82-101) 08/20/23 03:11 MCH 27.3 pg (27-33) 08/20/23 03:11 MCHC 31.6 g/dL (30-55) 08/20/23 03:11 RDW 18.5 % (12.1-15.1) H 08/20/23 03:11 Plt Count 251 10^3/cmm (157-399) 08/20/23 03:11 MPV 12.2 fL (7.4-10.4) H 08/20/23 03:11 Neut % (Auto) 64.2 % 08/19/23 04:45 Lymph % (Auto) Not Reportable 08/20/23 03:11 [place] % (Auto) Not Reportable 08/20/23 03:11 Eos % (Auto) 0.0 % 08/19/23 04:45 Baso % (Auto) 0.6 % 08/19/23 04:45 Neut # (Auto) 1.00 10^3/uL (1.8-7.7) L 08/19/23 04:45 Lymph # (Auto) Not Reportable 08/20/23 03:11 [place] # (Auto) Not Reportable 08/20/23 03:11 Eos # (Auto) 0.0 10^3/uL (0.0-0.8) 08/19/23 04:45 Baso # (Auto) 0.0 10^3/uL (0.0-0.1) 08/19/23 04:45 Nucleated RBC % (auto) 0 % 08/19/23 04:45 Total Counted 100 (0-100) 08/20/23 03:11 Atypical Lymphs % Not Reportable 08/20/23 03:11 Segmented Neutrophils 64 % 08/20/23 03:11 Abs Segm Neuts (Man) 2.4 10/cmm (1.6-7.1) 08/20/23 03:11 Band Neutrophils Not Reportable 08/20/23 03:11 Lymphocytes (Manual) 16 % 08/20/23 03:11 Monocytes (Manual) 13.0 % 08/20/23 03:11 Absolute Monocytes 0.5 10^3/cmm (0.1-0.6) 08/20/23 03:11 Eosinophils (Manual) 0 % 08/20/23 03:11 Absolute Eosinophils 0.0 10^3/cmm (0.0-0.7) 08/20/23 03:11 Basophils (Manual) 0.0 % 08/20/23 03:11 Absolute Basophils 0.0 10^3/cmm (0.0-0.2) 08/20/23 03:11 Metamyelocytes 2.0 % 08/20/23 03:11 Myelocytes 5.0 % 08/20/23 03:11 Nucleated RBCs # 0.0 /100WBC 08/19/23 04:45 Platelet Estimate Normal (Normal) 08/20/23 03:11 Giant Platelets Trace 08/20/23 03:11 PT 15.10 SECONDS (12.1-14.9) H 08/17/23 08:45 INR 1.16 (0.8-1.2) 08/17/23 08:45 APTT 29.8 SECONDS (23.9-36.7) 08/17/23 08:45 Specimen Type Arterial 08/17/23 08:50 Sample Site Radial, right 08/17/23 08:50 ABG pH 7.49 (7.35-7.45) H 08/17/23 08:50 ABG pCO2 32.1 mmHg (35-45) L 08/17/23 08:50 ABG pO2 65.4 mmHg (80.0-100.0) L 08/17/23 08:50 ABG PO2/FiO2 Ratio 0 08/17/23 08:50 ABG HCO3 24.6 mmol/L (22-26) 08/17/23 08:50 ABG Base Excess 1.7 mmol/L (-2.0-2.0) 08/17/23 08:50 Carlos Test Pos 08/17/23 08:50 Hematocrit 34.8 % (42-52) L 08/17/23 08:50 O2 Delivery Device Nc 08/17/23 08:50 O2 Liters/Min 5.0 % 08/17/23 08:50 FiO2 40.0 % 08/17/23 08:50 Director Of [employer] ID [id number] 08/17/23 08:50 Sodium 140 mmol/L (136-145) 08/20/23 03:11 Potassium 3.3 mmol/L (3.5-5.1) L 08/20/23 03:11 Chloride 104 mmol/L (98-107) 08/20/23 03:11 Carbon Dioxide 24 mmol/L (22-29) 08/20/23 03:11 Anion Gap 15.3 (5-19) 08/20/23 03:11 BUN 37 mg/dL (8-23) H 08/20/23 03:11 Creatinine 0.8 mg/dL (0.7-1.2) 08/20/23 03:11 GFR Calculation 96.7 mL/min (90-130) 08/20/23 03:11 Glucose 120 mg/dL (65-115) H 08/20/23 03:11 Estimat Average Glucose 108 08/18/23 05:24 Hemoglobin A1c 5.4 % (4.0-6.0) 08/18/23 05:24 Calculated Osmolality 300 mOsm/kg (285-295) H 08/20/23 03:11 Lactic Acid 2.4 mmol/L (0.5-2.2) H 08/17/23 08:45 Lactic Acid (Sepsis) 1.7 mmol/L (0.5-2.2) 08/17/23 10:50 Calcium 8.1 mg/dL (8.5-10.5) L 08/20/23 03:11 Phosphorus 3.1 mg/dL (2.5-4.5) 08/18/23 05:24 Magnesium 1.9 mg/dL (1.7-2.3) 08/18/23 05:24 Total Bilirubin 1.4 mg/dL (0.15-1.2) H 08/20/23 03:11 AST 38 U/L (0-40) 08/20/23 03:11 ALT 35 U/L (0-41) 08/20/23 03:11 Alkaline Phosphatase 523 U/L (40-130) H 08/20/23 03:11 Troponin T Baseline 23 ng/L (0-15) H 08/17/23 08:45 Troponin T 120 Minute 23.46 ng/L (0-15) H 08/17/23 10:50 Delta Troponin T 0.46 ABS# (0-10) 08/17/23 10:50 Troponin T Hi Sens 6Hr 17.40 ng/L (0-15) H 08/17/23 15:10 Troponin T Hi Sens 6Hr Delta -5.60 ng/L (0-12) L 08/17/23 15:10 C-Reactive Protein 234.5 mg/L (0.0-4.9) H 08/17/23 08:45 NT-Pro-B Natriuret Pep 646 pg/mL (0-125) H 08/17/23 08:45 Total Protein 5.1 g/dL (6.6-8.7) L 08/20/23 03:11 Albumin 2.6 g/dL (3.5-5.2) L 08/20/23 03:11 Globulin 2.5 g/dL (1.3-4.6) 08/20/23 03:11 Lipase 12 U/L (13-60) L 08/17/23 08:45 Folate 4.1 ng/mL (4.5-32.2) L 08/18/23 05:24 Procalcitonin 28.22 ng/mL (0-0.5) H 08/17/23 10:50 TSH 1.05 uIU/mL (0.27-4.20) 08/17/23 10:50 Urine Color Yellow (Yellow) 08/17/23 12:17 Urine Appearance Clear (CLEAR) 08/17/23 12:17 Urine pH 5 (5-7) 08/17/23 12:17 Ur Specific [place] 1.005 (1.005-1.030) 08/17/23 12:17 Urine Protein Trace (Negative) 08/17/23 12:17 Urine Glucose (UA) Norm (Normal) 08/17/23 12:17 Urine Ketones Negative (Negative) 08/17/23 12:17 Urine Blood Neg (Negative) 08/17/23 12:17 Urine Nitrate Negative (Negative) 08/17/23 12:17 Urine Bilirubin 1+ (Negative) H 08/17/23 12:17 Urine Urobilinogen 1 mg/dL (Negative) H 08/17/23 12:17 Ur Leukocyte Esterase Negative (Negative) 08/17/23 12:17 Urine RBC 0-4 /hpf (0-2) H 08/17/23 12:17 Urine WBC 0-4 /hpf (0-5) H 08/17/23 12:17 Ur Squamous Epith Cells 0-4 /hpf (0-5) H 08/17/23 12:17 Amorphous Sediment Not Reportable 08/17/23 12:17 Urine Bacteria Trace /hpf (NONE) 08/17/23 12:17 Nasal Influ A H1 2009 PCR Cancelled 08/17/23 12:13 Vancomycin Trough 18.1 ug/mL (10-15) H 08/19/23 21:27 Adenovirus (PCR) Cancelled 08/17/23 12:13 C. pneumoniae DNA (PCR) Cancelled 08/17/23 12:13 Coronavirus 229E (PCR) Cancelled 08/17/23 12:13 Human Metapneumovir PCR Cancelled 08/17/23 12:13 Influenza A (H1) PCR Cancelled 08/17/23 12:13 Influenza A (H3) PCR Cancelled 08/17/23 12:13 Influenza Type A (PCR) Cancelled 08/17/23 12:13 Influenza Type B (PCR) Cancelled 08/17/23 12:13 M. pneumoniae (PCR) Cancelled 08/17/23 12:13 Parainfluenza 1 (PCR) Cancelled 08/17/23 12:13 Parainfluenza 2 (PCR) Cancelled 08/17/23 12:13 Parainfluenza 3 (PCR) Cancelled 08/17/23 12:13 Parainfluenza 4 (PCR) Cancelled 08/17/23 12:13 RSV Type A (PCR) Cancelled 08/17/23 12:13 RSV Type B (PCR) Cancelled 08/17/23 12:13 Entero/Rhino (PCR) Cancelled 08/17/23 12:13 SARS-CoV-2 (PCR) Cancelled 08/17/23 12:13 MRSA (PCR) Not detected (NOT DETECTED) 08/17/23 14:15 Blood Type A Positive 08/19/23 09:45 Rho(D) Type Rh positive 08/19/23 09:45 Antibody Screen Negative 08/19/23 09:45 Crossmatch See Detail 08/19/23 09:45 Vitals Last Vital Signs Temp 97.6 F 08/20/23 11:45 Pulse 82 08/20/23 11:45 Resp 16 08/20/23 11:45 BP 102/66 08/20/23 11:45 Pulse Ox 96 08/20/23 11:45 O2 Del Method Nasal Cannula 08/20/23 11:45 O2 Flow Rate 2 08/20/23 08:00 Discharge Plan Discharge Patient Disposition: Home Condition: Stable Prescriptions: New levofloxacin 750 mg tablet 750 mg PO DAILY 5 Days Qty: 5 0RF metronidazole 500 mg tablet 500 mg PO Q8H 5 Days Qty: 15 0RF prednisone 5 mg tablet See Rx Instructions .ROUTE .COMPLEX Qty: 10 0RF Rx Instructions: 2 tab for 3 days, then 1 tab for 3 days, then 1/2 tab for 2 days. Continued trazodone 100 mg tablet 150 mg PO BEDTIME pantoprazole [Protonix] 40 mg tablet,delayed release (DR/EC) 40 mg PO DAILY Qty: 42 2RF Rx Instructions: 2 a day for two weeks, 1 a day there after hydrocodone-acetaminophen 7.5-325 mg tablet 1 tab PO Q6H PRN (Reason: pain) 30 Days Qty: 120 0RF morphine 15 mg tablet 15 mg PO Q6H PRN (Reason: Moderate Pain) 30 Days Qty: 120 0RF acetaminophen [Tylenol 8 Hour] 650 mg Tablet Extended Release 650 mg PO Q12H PRN (Reason: pain) sucralfate 100 mg/mL suspension 1 g PO BID 56 Days Qty: 1120 0RF fentanyl 75 mcg/hr patch 72 hour 1 patch transdermal Q72H Qty: 5 0RF ondansetron 4 mg film 4 mg PO DAILY PRN (Reason: nausea and vomiting) Qty: 20 0RF olanzapine 5 mg tablet 5 mg PO QPM Qty: 30 3RF Rx Instructions: Take for 5 days post chemo. prochlorperazine maleate [Compazine] 10 mg tablet 10 mg PO Q4H PRN (Reason: Mild Nausea) Qty: 30 3RF lorazepam 1 mg tablet 0.5 - 1 mg PO Q6H PRN (Reason: Severe Nausea) Qty: 30 3RF Iron (ferrous sulfate) 325 mg (65 mg iron) Tablet 325 mg PO DAILY Changed meloxicam 7.5 mg tablet 7.5 mg PO DAILY PRN (Reason: Pain, Moderate) Qty: 7 0RF Discontinued cefdinir 300 mg capsule 300 mg PO BID 10 Days Qty: 20 0RF Discharge Orders: Discharge Order (Routine); Ordered 08/20/23 Ordered By: Jonathan Khalil Referrals: Jameel Lopez, DO [Primary Care Provider] - 4-7 days (We have notified your physician's clinic of the need for a follow-up appointment to be scheduled. If you have not heard from them within the next 2 business days, please call them directly. ) Kian Esparza MD [Hospitalist] - 08/21/23 8:00 am (Per appointment) Patient Instructions: Prednisone (By mouth) (predniSONE Intensol, Prednicot, Deltasone, Pascual), Metronidazole (By mouth), Levofloxacin (By mouth) (Levaquin, Levaquin Leva-rissa), Potassium Content of Foods List (GEN), Sepsis (DC), Bacterial Pneumonia (GEN), Neutropenia - Oncology, Opioid Safety Activity Restrictions/Additional Instructions: Complete antibiotic course for pneumonia, primary doctor follow-up for resolution of pneumonia, as well as continued improvement of elevation of bilirubin, alkaline phosphatase. Follow-up with oncology as per your appointment. Your potassium was mildly low, consider adding potassium rich foods. Have your primary provider follow-up potassium level at next visit. Continue arrangements with [place] clinic for home nursing visits, physical therapy. Return to the hospital in case of worsening or new concerning symptoms. Discharge Attestations Time Spent in Discharge Care*: greater than 30 min Quality Metrics Clinical Quality Measures [ No reported AMI, CVA or VTE this stay] Coding Level of Care Code 73192 Total time (in minutes) for Discharge: 45 Diagnoses Septic shock A41.9; R65.21 Pneumonia J18.9 Neutropenia D70.9 Colon cancer metastasized to liver C18.9; C78.7 Secondary malignant neoplasm of liver and intrahepatic bile duct C78.7 Transaminitis R74.01 Goals of care, counseling/discussion Z71.89
--- NOTE | 2023-08-20 15:04 | PC.NURSE ---
Discharge Note Patient discharged to [home] via [w/c to POV] accompanied by []. Discharge instructions reviewed with patient and/or sales representative gas service. Mobile pharmacy medications and/or prescriptions provided. Belongings/home medications returned.
== END 2023-08-20 15:11 | disposition home or self-care (01) | DRG 871 ==
LOC: ER 11:24 → ER IP 12:43 → CSU 13:18
PROVIDERS: Emergency Medicine; Admitting Provider Student in an Organized Health Care Education/Training Program; Emergency Provider Family Medicine; PCP Emergency Medicine Emergency Medical Services; Visit Provider Internal Medicine
DX: A41.9 Sepsis, unspecified organism (principal); J18.9 Pneumonia, unspecified organism; K83.1 Obstruction of bile duct; R65.21 Severe sepsis with septic shock; J96.91 Respiratory failure, unspecified with hypoxia; E87.3 Alkalosis; C7A.1 Malignant poorly differentiated neuroendocrine tumors; C7B.8 Other secondary neuroendocrine tumors; G43.709 Chronic migraine without aura, not intractable, without status migrainosus; G89.29 Other chronic pain; M25.562 Pain in left knee; M25.561 Pain in right knee; M19.90 Unspecified osteoarthritis, unspecified site; Z87.891 Personal history of nicotine dependence; D50.9 Iron deficiency anemia, unspecified; Z66 Do not resuscitate; D70.9 Neutropenia, unspecified; R41.0 Disorientation, unspecified
CPT/HCPCS: 36415; 36430; 36591; 36600; 51702; 71260; 74177; 80053; 80202; 81001; 82746; 82803; 83036; 83605; 83690; 83735; 83880; 84100; 84145; 84443; 84484; 85007; 85025; 85610; 85730; 86140; 86403; 86850; 86900; 86920; 87040; 87449; 87486; 87581; 87633; 87641; 93005; 94640; 94760; 96360; 96365; 96366; 96367; 96372; 96374; 96375; 96376; 99285; J0456; J1170; J1642; J1644; J2270; J2405; J2543; J2920; J3370; J7030; J7050; J7614; J7626; J7644; P9040; P9046; Q9967

== ENCOUNTER 2023-09-02 09:00 | Oncology outpatient (recurring) (ONCR) | payer OTHER, MEDICARE, SELFPAY ==
[2023-08-15 08:50] VITALS: BP 107/64; PULSE 92; RESP 16; TEMP 37.1; O2SAT 97
[2023-08-15 08:56] LABS: Hematocrit 27.3 % (37-53); Lymphocytes # 0.8 10^3/uL (0.8-4.8); Lymphocytes % 19.2 %; Mean Corpuscular HGB Conc 33.3 g/dL (30-55); Mean Corpuscular Hemoglobin 27.2 pg (27-33); Mean Corpuscular Volume 81.7 fl (82-101); Mean Platelet Volume 11.1 fL (7.4-10.4); Monocytes # 0.2 10^3/uL (0.2-0.9); Monocytes % 3.6 %; Neutrophils # 3.19 10^3/uL (1.8-7.7); Neutrophils % 76.7 %; Nucleated Red Blood Cells % 0 %; Platelet Count 177 10^3/cmm (157-399); Red Blood Count 3.34 10^6/uL (3.85-5.65); Red Cell Distribution Width 17.5 % (12.1-15.1); White Blood Count 4.16 10^3/uL (3.29-11.43)
[2023-08-15] MEDS: sodium chloride 0.9% 1,000 ML 999 ML IV (09:02)
[2023-08-15 09:39] LABS: Alanine Aminotransferase 53 U/L (0-41); Albumin Level 3.2 g/dL (3.5-5.2); Alkaline Phosphatase 908 U/L (40-130); Anion Gap 17.3 (5-19); Aspartate Amino Transferase 67 U/L (0-40); Blood Urea Nitrogen 29 mg/dL (8-23); Calcium 9.1 mg/dL (8.5-10.5); Carbon Dioxide 25 mmol/L (22-29); Chloride 97 mmol/L (98-107); Globulin 3.2 g/dL (1.3-4.6); Glomerular Filtration Rate 112.8 mL/min (90-130); Glucose 96 mg/dL (65-115); Osmolality Calculated 286 mOsm/kg (285-295); Potassium 4.3 mmol/L (3.5-5.1); Sodium 135 mmol/L (136-145); Total Bilirubin 2.1 mg/dL (0.15-1.2); Total Protein 6.4 g/dL (6.6-8.7)
[2023-08-21] MEDS: morphine 4 mg/mL SDV 1 mL SUBCUT (08:58)
[2023-08-21 08:59] LABS: Hematocrit 29.6 % (37-53); Mean Corpuscular HGB Conc 31.4 g/dL (30-55); Mean Corpuscular Hemoglobin 27.3 pg (27-33); Mean Corpuscular Volume 86.8 fl (82-101); Mean Platelet Volume 11.6 fL (7.4-10.4); Platelet Count 416 10^3/cmm (157-399); Red Blood Count 3.41 10^6/uL (3.85-5.65); Red Cell Distribution Width 18.3 % (12.1-15.1); White Blood Count 15.35 10^3/uL (3.29-11.43)
[2023-08-21 09:13] LABS: Alanine Aminotransferase 49 U/L (0-41); Alkaline Phosphatase 718 U/L (40-130); Anion Gap 16.5 (5-19); Aspartate Amino Transferase 53 U/L (0-40); Blood Urea Nitrogen 36 mg/dL (8-23); Calcium 8.5 mg/dL (8.5-10.5); Carbon Dioxide 24 mmol/L (22-29); Chloride 101 mmol/L (98-107); Globulin 2.8 g/dL (1.3-4.6); Glomerular Filtration Rate 96.7 mL/min (90-130); Glucose 119 mg/dL (65-115); Osmolality Calculated 295 mOsm/kg (285-295); Potassium 3.5 mmol/L (3.5-5.1); Sodium 138 mmol/L (136-145); Total Bilirubin 1.4 mg/dL (0.15-1.2); Total Protein 5.8 g/dL (6.6-8.7)
[2023-08-21 09:55] LABS: Slide Review Slide Review Perform
[2023-08-21 09:56] LABS: Band Neutrophils Absolute 0.9 10^3/cmm (0.0-1.2); Eosinophils 0 %; Lymphocytes 10 %; Lymphocytes Absolute 1.5 10^3/cmm (1.2-3.4); Monocytes Absolute 0.3 10^3/cmm (0.1-0.6); Segmented Neutrophils 52 %; Total Cells Counted 100 (0-100)
[2023-08-21 09:57] LABS: Absolute Neutrophil 8.9 10^3/cmm (1.4-6.5); Platelet Estimate Increased (Normal)
[2023-08-27 09:14] VITALS: BP 106/67; PULSE 103; RESP 17; TEMP 37.1; O2SAT 98
[2023-08-27 09:19] VITALS: RESP 17; O2SAT 99
[2023-08-27] MEDS: morphine 4 mg/mL SDV 1 mL SUBCUT (09:19)
[2023-08-27 09:34] LABS: Hematocrit 34.4 % (37-53); Mean Corpuscular HGB Conc 31.4 g/dL (30-55); Mean Corpuscular Hemoglobin 26.9 pg (27-33); Mean Corpuscular Volume 85.8 fl (82-101); Mean Platelet Volume 10.3 fL (7.4-10.4); Platelet Count 690 10^3/cmm (157-399); Red Blood Count 4.01 10^6/uL (3.85-5.65); Red Cell Distribution Width 18.3 % (12.1-15.1); White Blood Count 29.23 10^3/uL (3.29-11.43)
[2023-08-27 09:51] LABS: Alanine Aminotransferase 21 U/L (0-41); Albumin Level 3.5 g/dL (3.5-5.2); Alkaline Phosphatase 623 U/L (40-130); Chloride 95 mmol/L (98-107); Potassium 4.2 mmol/L (3.5-5.1); Sodium 133 mmol/L (136-145)
[2023-08-27 10:08] LABS: Slide Review Slide Review Perform
[2023-08-27 10:09] LABS: Total Cells Counted 100 (0-100)
[2023-08-27 10:10] LABS: Absolute Neutrophil 21.3 10^3/cmm (1.4-6.5); Anisocytosis 1+; Band Neutrophils Absolute 0.3 10^3/cmm (0.0-1.2); Eosinophils 0 %; Giant Platelets 1+; Lymphocytes 10 %; Lymphocytes Absolute 4.1 10^3/cmm (1.2-3.4); Monocytes Absolute 1.8 10^3/cmm (0.1-0.6); Platelet Estimate Increased (Normal); Segmented Neutrophils 72 %
[2023-08-27 10:18] LABS: Anion Gap 17.2 (5-19); Aspartate Amino Transferase 24 U/L (0-40); Blood Urea Nitrogen 19 mg/dL (8-23); Calcium 9.5 mg/dL (8.5-10.5); Carbon Dioxide 25 mmol/L (22-29); Globulin 3.1 g/dL (1.3-4.6); Glomerular Filtration Rate 74.8 mL/min (90-130); Glucose 110 mg/dL (65-115); Osmolality Calculated 279 mOsm/kg (285-295); Total Bilirubin 1.3 mg/dL (0.15-1.2); Total Protein 6.6 g/dL (6.6-8.7)
[2023-09-02 09:11] VITALS: BP 84/56; PULSE 106; RESP 18; TEMP 36.4; O2SAT 97
[2023-09-02 09:21] LABS: Basophils # 0.1 10^3/uL (0.0-0.1); Basophils % 0.6 %; Hematocrit 33.8 % (37-53); Lymphocytes # 2.3 10^3/uL (0.8-4.8); Mean Corpuscular HGB Conc 31.1 g/dL (30-55); Mean Corpuscular Hemoglobin 26.9 pg (27-33); Mean Corpuscular Volume 86.4 fl (82-101); Mean Platelet Volume 10.2 fL (7.4-10.4); Monocytes # 1.5 10^3/uL (0.2-0.9); Monocytes % 7.6 %; Neutrophils # 15.23 10^3/uL (1.8-7.7); Neutrophils % 78.5 %; Nucleated Red Blood Cells % 0 %; Platelet Count 506 10^3/cmm (157-399); Red Blood Count 3.91 10^6/uL (3.85-5.65); Red Cell Distribution Width 18.3 % (12.1-15.1); White Blood Count 19.42 10^3/uL (3.29-11.43)
[2023-09-02 09:37] VITALS: RESP 17; O2SAT 97
[2023-09-02] MEDS: morphine 4 mg/mL SDV 1 mL SUBCUT (09:37)
[2023-09-02 09:38] LABS: Alanine Aminotransferase 20 U/L (0-41); Albumin Level 3.5 g/dL (3.5-5.2); Alkaline Phosphatase 764 U/L (40-130); Anion Gap 15.4 (5-19); Aspartate Amino Transferase 49 U/L (0-40); Blood Urea Nitrogen 18 mg/dL (8-23); Calcium 9.2 mg/dL (8.5-10.5); Carbon Dioxide 28 mmol/L (22-29); Chloride 95 mmol/L (98-107); Globulin 3.1 g/dL (1.3-4.6); Glucose 93 mg/dL (65-115); Osmolality Calculated 280 mOsm/kg (285-295); Potassium 4.4 mmol/L (3.5-5.1); Sodium 134 mmol/L (136-145); Total Bilirubin 1.6 mg/dL (0.15-1.2); Total Protein 6.6 g/dL (6.6-8.7)
[2023-09-02] MEDS: sodium chloride 0.9% 500 ML 75 ML IV (09:42)
[2023-09-02] MEDS: ondansetron 2 mg/ML SDV 2 mL 8 MG IVP (09:49)
[2023-09-02 11:47] VITALS: BP 94/58; PULSE 94; RESP 17; TEMP 36.3; O2SAT 98
== END 2023-09-14 23:59 | disposition home or self-care (01) ==
PROVIDERS: PCP Emergency Medicine Emergency Medical Services; Visit Provider Internal Medicine Medical Oncology
DX: C19 Malignant neoplasm of rectosigmoid junction (principal); Z53.9 Procedure and treatment not carried out, unspecified reason; Z79.899 Other long term (current) drug therapy; C78.7 Secondary malignant neoplasm of liver and intrahepatic bile duct
CPT/HCPCS: 36591; 80053; 85007; 85025; 86850; 86900; 96360; 96365; 96367; 96372; 96375; 99214; 99215; J1100; J1642; J2270; J2405; J7030; J7040